=== PATIENT | female | born 1975 | race Caucasian/White ===

== ENCOUNTER → 2016-07-31 | Outpatient (REF) | payer OTHER | LOC: M LAB REF 16:53 | PROVIDERS: ATTEND Physician Assistant Medical | DX: Z13.9 Encounter for screening, unspecified (principal) ==

== ENCOUNTER 2016-08-09 16:04 | Inpatient (IN) | payer OTHER ==
[~2016-08-09] VITALS: Ht 165.1 cm; Wt 83.0 kg
[2016-08-09] MEDS ORDERED: NS 1,000 ML IV ONE (16:30)
[2016-08-09 16:33] LABS: BASO % 0.4 % (0.0-1.0); EOS # 0.1 K/mm3 (0.0-0.50); EOS % 1.5 % (0.0-3.0); LARGE UNSTAINED CELL # 0.2 K/mm3 (0.0-0.4); LARGE UNSTAINED CELL % 2.1 % (0.0-4.0); LYMPH # 2.2 K/mm3 (1.5-4.5); LYMPH % 26.1 % (24.0-44.0); MEAN CORPUSCULAR HGB CONC 34.7 g/dl (32.0-36.5); MEAN CORPUSCULAR VOLUME 86.5 fl (80.0-96.0); MONO # 0.3 K/mm3 (0.0-0.8); MONO % 3.8 % (0.0-5.0); NEUTROPHILS # 5.1 K/mm3 (1.8-7.7); NEUTROPHILS % 66.1 % (36.0-66.0); PLATELET COUNT, AUTOMATED 425 k/mm3 (150-450); RED CELL DISTRIBUTION WIDTH 13.8 % (11.5-14.5); WHITE BLOOD COUNT 7.7 K/mm3 (4.0-10.0)
[2016-08-09 16:47] LABS: METHADONE URINE NEGATIVE (NEGATIVE)
[2016-08-09 16:52] LABS: CONTROL LINE HCG INT CTR LINE PRESENT
--- NOTE | 2016-08-09 16:54 | REP ---
REASON: Drug overdose. PRIOR: 05/29/2015. FINDINGS: The technique utilized in obtaining the radiograph has magnified the cardiac silhouette and accentuated the interstitial markings. The superior mediastinal structures are midline. The cardiac silhouette is unremarkable in size, shape, and position. The diaphragmatic surfaces of the lungs are regular, and the costophrenic angles are clear. The pulmonary davis are clear. The imaged osseous structures are intact. IMPRESSION: There is no acute cardiopulmonary disease. Signed by Kaiden Meza DO 08/12/2016 12:58 P
[2016-08-09 17:01] LABS: ALBUMIN/GLOBULIN RATIO 1.08 (1.00-1.93); ALKALINE PHOSPHATASE 90 U/L (45-117); ALT/SGPT 25 U/L (12-78); ANION GAP 7 MEQ/L (8-16); AST/SGOT 16 U/L (15-37); BILIRUBIN,DIRECT < 0.1 MG/DL (0.0-0.2); BILIRUBIN,TOTAL 0.6 MG/DL (0.2-1.0); BLOOD UREA NITROGEN 8 MG/DL (7-18); CARBON DIOXIDE LEVEL 24 MEQ/L (21-32); CHLORIDE LEVEL 105 MEQ/L (98-107); CREATININE FOR GFR 0.82 MG/DL (0.55-1.02); GLOMERULAR FILTRATION RATE > 60.0 (>58); GLUCOSE, FASTING 95 MG/DL (70-105); POTASSIUM SERUM 4.7 MEQ/L (3.5-5.1); SODIUM LEVEL 136 MEQ/L (136-145); TOTAL PROTEIN 7.7 GM/DL (6.4-8.2)
[2016-08-09] MEDS ORDERED: PANT20TA PO (17:08)
[2016-08-09] MEDS ORDERED: SERT-138 PO (17:08)
[2016-08-09] MEDS ORDERED: BUPR150T3 PO (17:08)
[2016-08-09] MEDS ORDERED: LORA10TA2 PO (17:08)
[2016-08-09] MEDS ORDERED: PATIENT COMMENT (17:08)
[2016-08-09 17:17] LABS: MAGNESIUM LEVEL 2.7 MG/DL (1.8-2.4)
[2016-08-09] MEDS ORDERED: CLON0.5T PO (17:57)
[2016-08-09] MEDS ORDERED: D 50CAP PO (17:57)
[2016-08-09] MEDS ORDERED: TIZA2TA PO (17:57)
[2016-08-09] MEDS ORDERED: [UNRECOGNIZED DRUG - OTHER] PO (17:57)
[2016-08-09] MEDS ORDERED: [UNRECOGNIZED DRUG - CODE] PO (17:57)
[2016-08-09] MEDS ORDERED: MELA3CAP PO (17:57)
[2016-08-09] MEDS ORDERED: TRAM50TA2 PO (17:57)
[2016-08-09] MEDS ORDERED: VITA-130 PO (17:57)
--- NOTE | 2016-08-09 20:59 | HPEPDOC ---
Medical History and Physical Date of Admission Aug 09, 2016 at 19:44 History and Physical PRIMARY CARE PROVIDER: [Iain Boyer PA-C] ATTENDING: Brandon Pina M.D. CHIEF COMPLAINT: [Altered mental status] HISTORY OF PRESENT ILLNESS: [40-year-old female presents to the emergency department after EMS was called and she was admitted to intentional overdose. She informs me that she's had quite a bit of stress in her life recently, she's had quite a bit of neck pain, back pain, anxiety and felt overwhelmed earlier today and decided to take tablets of her clonazepam 5 tablets of her tramadol 3- 1/2 tablets of her tizanidine on top of taking her normal doses of her medications, which also include Zoloft and Wellbutrin. During the interview. She did appear teary-eyed and somewhat emotional. And she informs me that she's had suicidal ideation on and off for the last 2 months. She's try to get in to see a psychiatrist as well as a counselor and has been unable to keep those appointments. But does inform me that she feels that she is at risk to further trying to harm herself. Currently, she denies headache, lightheadedness, dizziness. Denies chest pain, shortness of breath, productive sputum, no nausea or vomiting. But has had a normal appetite. Hospitalist was called for admission. After the ER physician had contacted poison control and the patient will need to be admitted overnight on telemetry for further monitoring. As long as she looks good tomorrow morning labs are normal and no events on telemetry. She'll need to be evaluated by psychiatry for potential involuntary admission to inpatient mental health due to her suicidal ideation.] PAST MEDICAL HISTORY: 1. Anxiety and depression. 2. Chronic neck and back pain. 3. History of anemia 4. History of recurrent urinary tract infections PAST SURGICAL HISTORY: Multiple surgeries for fractures involving the left arm at age 6. Fractured left ankle in 1997 requiring repair. SOCIAL HISTORY: Occasional alcohol use. She denies tobacco use. No illicit drug use. No recent travel, no sick contacts. FAMILY HISTORY: Noncontributory ALLERGIES: Please see below. REVIEW OF SYSTEMS: CONSTITUTIONAL: No fever, chills, weight loss, nausea or vomiting . HEENT: No headache, lightheadedness, blurred or loss of vision. No difficulty with speech or swallow. CARDIOVASCULAR: No chest pain, palpitations, paroxysmal nocturnal dyspnea or lower extremity edema RESPIRATORY: No cough, productive sputum, wheeze or hemoptysis GENITOURINARY: No dysuria, frequency, or discharge MUSCULOSKELETAL: No bone, muscle or joint pain. GASTROINTESTINAL: No Nasuea, vomitting, change in appetite. Bowel movements are regular without hematochezia or melena. No bladder or bowel incontinence. SKIN: No complaint of lesions, abrasions or rashes NEUROLOGICAL: No blurred vision, headaches, parasthesias or paralysis PSYCHIATRIC: Positive for anxiety with chronic pain syndrome and recent suicidal ideation. She denies any audiovisual hallucinations ENDOCRINE: Denies history of diabetes or thyroid disorder. No history of endocrine abnormalities. HEMATOLOGIC/LYMPHATIC: No lumpbs, bumps or swelling of neck, axilla or groin. No night sweats or weight loss. HOME MEDICATIONS: Please see below. PHYSICAL EXAMINATION: GENERAL APPEARANCE: [No acute distress, alert, pleasant, yet tearful]. HEENT: [. Eyes PERRLA. Throat clear. Neck supple]. CARDIOVASCULAR: [Regular rate and rhythm]. LUNGS: [Clear to auscultation bilaterally]. ABDOMEN: [Soft, nontender, nondistended, positive bowel sounds, masses or rebound]. MUSCULOSKELETAL: [Range of motion limitations]. EXTREMITIES: [No edema, no calf tenderness]. NEUROLOGICAL: [Renal nerves II-12 are grossly intact. No deficits]. PSYCHIATRIC: [As indicated in the HPI. She does appear to be tearful and describes suicidal ideation.]. LABORATORY DATA: See below. IMAGING: [Chest x-ray: No acute disease. The lead EKG sinus rhythm, normal QTc interval, no acute findings.] ASSESSMENT: [ 1. Intentional overdose with her prescription medications. 2. Suicidal ideation. 3. Long-standing anxiety. 4. Chronic Pain syndrome with chronic neck pain and back pain]. . PLAN: She will be admitted to PCU on telemetry overnight. We'll continue to observe for any other complications. She does not appear to have any issues with illicit drug use or alcohol that would warrant any withdrawal symptoms. We'll place with a sitter. DVT prophylaxis subcutaneous Lovenox. Disposition: If she does well through the night. No issues in the morning. We' ll need to consult psychiatry for follow-up involuntary admission to inpatient mental health for her suicidal ideation and Intentional overdose. Vital Signs Vital Signs Date Time Temp Pulse Resp B/P (MAP) Pulse Ox O2 Delivery O2 Flow Rate FiO2 08/09/16 19:30 74 16 121/67 (85) 97 Room Air 08/09/16 16:15 98.8 Laboratory Data Labs 24H Laboratory Tests 2 08/09/16 16:18: White Blood Count 7.7, Red Blood Count 4.43, Hemoglobin 13.3, Hematocrit 38.3, Mean Corpuscular Volume 86.5, Mean Corpuscular Hemoglobin 30.0, Mean Corpuscular Hemoglobin Concent 34.7, Red Cell Distribution Width 13.8, Platelet Count 425, Neutrophils (%) (Auto) 66.1H, Lymphocytes (%) (Auto) 26.1, Monocytes (%) (Auto) 3.8, Eosinophils (%) (Auto) 1.5, Basophils (%) (Auto) 0.4, Neutrophils # (Auto) 5.1, Lymphocytes # (Auto) 2.2, Monocytes # (Auto) 0.3, Eosinophils # (Auto) 0.1, Basophils # (Auto) 0.0, Large Unclassified Cells % 2.1 , Large Unclassified Cells # 0.2 08/09/16 16:28: Urine Appearance CLEAR, Urine Color STRAW, Urine pH 7.0, Urine Specific [place] 1.004, Urine Protein NEGATIVE, Urine Glucose (UA) NEGATIVE, Urine Ketones NEGATIVE, Urine Urobilinogen 0.2, Urine Bilirubin NEGATIVE, Urine Leukocyte Esterase NEGATIVE, Urine Blood NEGATIVE, Urine Nitrite NEGATIVE, Urine WBC (Auto ) 0, Urine RBC (Auto) 2, Urine Hyaline Casts (Auto) 0, Urine Bacteria (Auto) NEGATIVE, Urine Squamous Epithelial Cells 0, Urine Sperm (Auto) , Urine Amphetamines Screen NEGATIVE, Urine Benzodiazepines Screen NEGATIVE, Urine Opiates Screen NEGATIVE, Urine Methadone Screen NEGATIVE, Urine Barbiturates Screen NEGATIVE, Urine Phencyclidine Screen NEGATIVE, Urine Cocaine Metabolite Screen NEGATIVE, Urine Cannabinoids Screen NEGATIVE 08/09/16 16:45: Bedside Glucose (Misc Panel) 96, Anion Gap 7L, Glomerular Filtration Rate > 60.0 , Calcium Level 9.0, Magnesium Level 2.7H, Aspartate Amino Transf (AST/SGOT) 16 , Alanine Aminotransferase (ALT/SGPT) 25, Alkaline Phosphatase 90, Total Bilirubin 0.6, Direct Bilirubin < 0.1, Total Creatine Kinase 113, Total Protein 7.7, Albumin 4.0, Albumin/Globulin Ratio 1.08, Thyroid Stimulating Hormone (TSH ) 2.390, Human Chorionic Gonadotropin, Qual NEGATIVE, Salicylates Level < 1.7L, Acetaminophen Level < 2.0L, Ethyl Alcohol Level < 0.003 08/09/16 17:21: Lactic Acid Level 0.4 CBC/BMP Laboratory Tests 08/09/16 16:18 Red Blood Count 4.43, Mean Corpuscular Volume 86.5, Mean Corpuscular Hemoglobin 30.0, Mean Corpuscular Hemoglobin Concent 34.7, Red Cell Distribution Width 13.8 , Neutrophils (%) (Auto) 66.1 H, Lymphocytes (%) (Auto) 26.1, Monocytes (%) ( Auto) 3.8, Eosinophils (%) (Auto) 1.5, Basophils (%) (Auto) 0.4, Neutrophils # ( Auto) 5.1, Lymphocytes # (Auto) 2.2, Monocytes # (Auto) 0.3, Eosinophils # (Auto ) 0.1, Basophils # (Auto) 0.0 08/09/16 16:45 Home Medications Scheduled (Weight Loss Daily Multi) 1 Tab Tab, 3 TAB PO DAILY (Green Tea Slim) 1 Tab Tab, 1 TAB PO BID Ascorbic Acid (Vitamin C) 500 Mg Tab, 500 MG PO BID Bupropion Hcl (Bupropion HCl Xl) 150 Mg Tab, 150 MG PO DAILY Cholecalciferol (Vitamin D3) 5,000 Unit Cap, 5,000 UNIT PO DAILY Pantoprazole Sodium (Pantoprazole Sodium) 20 Mg Tab, 20 MG PO DAILY Sertraline HCl (Sertraline HCl) 100 Mg Tab, 100 MG PO DAILY Scheduled PRN Clonazepam (Clonazepam) 0.5 Mg Tab, 0.5 MG PO DAILY PRN for ANXIETY Loratadine (Loratadine) 10 Mg Tab, 10 MG PO DAILY PRN for ALLERGIES Melatonin (Melatonin) 3 Mg Cap, 3 MG PO QHS PRN for SLEEP Tizanidine HCl (Tizanidine HCl) 2 Mg Tab, 2 MG PO Q8H PRN for SPASMS Tramadol HCl (Tramadol HCl) 50 Mg Tab, 50 MG PO Q12H PRN for PAIN Miscellaneous Medications [Patient Comment] PT UNRESPONSIVE, OBTAINED LIST FROM PHARMACY Allergies Coded Allergies: Latex (Verified Allergy, Intermediate, RASH, 08/09/16) ARTURO KEANE DO Aug 09, 2016 20:59
[2016-08-09 21:45] VITALS: BP 123/76
[2016-08-09] MEDS: SENOKOT S TAB PO SCH (22:17)
[2016-08-09] MEDS: ACETAMINOPHEN TAB 650MG DOSE (2X325MG) PO PRN (22:18)
[2016-08-10 04:45] VITALS: BP 116/65
[2016-08-10 05:12] LABS: MEAN CORPUSCULAR HEMOGLOBIN 29.4 pg (27.0-33.0); MEAN CORPUSCULAR HGB CONC 33.9 g/dl (32.0-36.5); MEAN CORPUSCULAR VOLUME 86.7 fl (80.0-96.0); WHITE BLOOD COUNT 7.8 K/mm3 (4.0-10.0)
[2016-08-10 05:39] LABS: ANION GAP 6 MEQ/L (8-16); BLOOD UREA NITROGEN 8 MG/DL (7-18); CALCIUM LEVEL 8.6 MG/DL (8.5-10.1); CARBON DIOXIDE LEVEL 26 MEQ/L (21-32); CHLORIDE LEVEL 109 MEQ/L (98-107); CREATININE FOR GFR 0.68 MG/DL (0.55-1.02); GLOMERULAR FILTRATION RATE > 60.0 (>58); GLUCOSE, FASTING 77 MG/DL (70-105); POTASSIUM SERUM 3.6 MEQ/L (3.5-5.1); SODIUM LEVEL 141 MEQ/L (136-145)
--- NOTE | 2016-08-10 06:03 | ECGEPIP ---
Stationary ECG Study [facility] - ED Test Date: 2016-08-09 Pat Name: ROLANDO MCINTYRE Department: Room: - Gender: F Keno Writer: joanie : 1975 Requested By: Talita Szymanski Order Number: [id number] Reading MD: Michael Goddard Measurements Intervals [place] Rate: 82 P: 10 DE: 174 QRS: 0 QRSD: 86 T: 12 QT: 366 QTc: 428 Interpretive Statements SINUS RHYTHM LOW QRS VOLTAGE IN PRECORDIAL LEADS PROBABLE INFERIOR MYOCARDIAL INFARCTION, PROBABLY OLD PRWP NSTTW ABNORMALITIES SIMILAR TO 09/06/13 Electronically Signed On 08-10-2016 6:03:30 EDT by Michael Goddard
[2016-08-10] MEDS: SENOKOT S TAB PO SCH (07:57)
[2016-08-10 08:00] VITALS: BP 93/50
[2016-08-10] MEDS ORDERED: ENOXAPARIN 40 MG/0.4 ML SYRINGE (J1650) SC SCH (09:00)
--- NOTE | 2016-08-10 10:49 | DSES ---
DATE OF ADMISSION: 08/09/2016 SPECIALISTS INVOLVED IN CARE: Dr. Fortune from psychiatry. COMPLICATIONS DURING STAY: None. PROCEDURES PERFORMED DURING STAY: None. This is a patient of Andres Boyer. DISCHARGE DIAGNOSES: 1. Intentional overdose. 2. Major depressive disorder. 3. Anxiety. 4. Chronic neck and back pain. 5. History of anemia. 6. History of recurrent urinary tract infection (UTI). 7. Suicidal ideation. SUMMARY OF PRESENTATION: This is a 40-year-old who was brought to the emergency department after EMS was contacted and she admitted to intentional overdose. This was related to life stress. Poison Control was contacted. It was suggested that based on the Wellbutrin that she be monitored on telemetry overnight and she was. There was no significant arrhythmia. She is feeling well this morning and has no complaints of pain, chest pain or shortness of breath. I have discussed with her that she will be transferred to the mental health unit which she seems to understand. Dr. Fortune has been consulted. Temperature is 99.3, pulse 75, respiratory rate 18, blood pressure 93/50, and 97 % on room air. She is awake, appropriately interactive, and pleasantly conversant. Breathing is symmetrical and rested. Heart is in a regular rate and rhythm. Abdomen soft, doughy, nontender. White cell count 7.8, hemoglobin 11.9 and platelets of 372. BUN 8, creatinine 0.68. DISCHARGE INSTRUCTIONS: Followup with Andres Boyer upon discharge from inpatient mental health unit ([facility]). Diet and activity as tolerated. Medications will include Claritin 10 mg by mouth daily as needed, Protonix 20 mg by mouth daily and tizanidine 2 mg every 8 hours as needed for spasms. MTDD
--- NOTE | 2016-08-10 11:24 | MHIPNPDOC ---
[facility] Progress Note Progress Note DATE OF SERVICE: 08/10/16 Evaluated 40 year old female with history of major Depressive Disorder with suicide attempt by intentional drug overdose, anxiety and multiple family/ social problems that triggered this crisis. Patient is still depressed and has suicidal ideation. Reports that if she would not be at the hospital, she would have tried again to kill herself. She is cooperative, pleasant and agrees going to the [facility]. Patient is stable to be transferred to the [facility]. DIAGNOSES: 1. Major Depressive Disorder, recurrent, with suicidal ideation 2. Generalized anxiety Disorder ASSESSMENT:pt. is still very vulnerable, has SI and has no family or social support. Needs to go to the [facility]. MANAGEMENT PLAN: Transfer her to the [facility]. TIME SPENT: 45 minutes. Vital Signs Vital Signs Date Time Temp Pulse Resp B/P (MAP) Pulse Ox O2 Delivery O2 Flow Rate FiO2 08/10/16 08:00 99.3 75 18 93/50 (64) 97 Room Air Laboratory Data 24H Labs Laboratory Tests 2 08/09/16 16:18: White Blood Count 7.7, Red Blood Count 4.43, Hemoglobin 13.3, Hematocrit 38.3, Mean Corpuscular Volume 86.5, Mean Corpuscular Hemoglobin 30.0, Mean Corpuscular Hemoglobin Concent 34.7, Red Cell Distribution Width 13.8, Platelet Count 425, Neutrophils (%) (Auto) 66.1H, Lymphocytes (%) (Auto) 26.1, Monocytes (%) (Auto) 3.8, Eosinophils (%) (Auto) 1.5, Basophils (%) (Auto) 0.4, Neutrophils # (Auto) 5.1, Lymphocytes # (Auto) 2.2, Monocytes # (Auto) 0.3, Eosinophils # (Auto) 0.1, Basophils # (Auto) 0.0, Large Unclassified Cells % 2.1 , Large Unclassified Cells # 0.2 08/09/16 16:28: Urine Appearance CLEAR, Urine Color STRAW, Urine pH 7.0, Urine Specific [place] 1.004, Urine Protein NEGATIVE, Urine Glucose (UA) NEGATIVE, Urine Ketones NEGATIVE, Urine Urobilinogen 0.2, Urine Bilirubin NEGATIVE, Urine Leukocyte Esterase NEGATIVE, Urine Blood NEGATIVE, Urine Nitrite NEGATIVE, Urine WBC (Auto ) 0, Urine RBC (Auto) 2, Urine Hyaline Casts (Auto) 0, Urine Bacteria (Auto) NEGATIVE, Urine Squamous Epithelial Cells 0, Urine Sperm (Auto) , Urine Amphetamines Screen NEGATIVE, Urine Benzodiazepines Screen NEGATIVE, Urine Opiates Screen NEGATIVE, Urine Methadone Screen NEGATIVE, Urine Barbiturates Screen NEGATIVE, Urine Phencyclidine Screen NEGATIVE, Urine Cocaine Metabolite Screen NEGATIVE, Urine Cannabinoids Screen NEGATIVE 08/09/16 16:45: Bedside Glucose (Misc Panel) 96, Anion Gap 7L, Glomerular Filtration Rate > 60.0 , Calcium Level 9.0, Magnesium Level 2.7H, Aspartate Amino Transf (AST/SGOT) 16 , Alanine Aminotransferase (ALT/SGPT) 25, Alkaline Phosphatase 90, Total Bilirubin 0.6, Direct Bilirubin < 0.1, Total Creatine Kinase 113, Total Protein 7.7, Albumin 4.0, Albumin/Globulin Ratio 1.08, Thyroid Stimulating Hormone (TSH ) 2.390, Human Chorionic Gonadotropin, Qual NEGATIVE, Salicylates Level < 1.7L, Acetaminophen Level < 2.0L, Ethyl Alcohol Level < 0.003 08/09/16 17:21: Lactic Acid Level 0.4 08/10/16 04:30: Anion Gap 6L, Glomerular Filtration Rate > 60.0, Blood Urea Nitrogen 8, Creatinine 0.68, Sodium Level 141, Potassium Level 3.6#, Chloride Level 109H, Carbon Dioxide Level 26, Calcium Level 8.6 CBC/BMP Laboratory Tests 08/09/16 16:18 Red Blood Count 4.43, Mean Corpuscular Volume 86.5, Mean Corpuscular Hemoglobin 30.0, Mean Corpuscular Hemoglobin Concent 34.7, Red Cell Distribution Width 13.8 , Neutrophils (%) (Auto) 66.1 H, Lymphocytes (%) (Auto) 26.1, Monocytes (%) ( Auto) 3.8, Eosinophils (%) (Auto) 1.5, Basophils (%) (Auto) 0.4, Neutrophils # ( Auto) 5.1, Lymphocytes # (Auto) 2.2, Monocytes # (Auto) 0.3, Eosinophils # (Auto ) 0.1, Basophils # (Auto) 0.0 08/09/16 16:45 08/10/16 04:30 Red Blood Count 4.05, Mean Corpuscular Volume 86.7, Mean Corpuscular Hemoglobin 29.4, Mean Corpuscular Hemoglobin Concent 33.9, Red Cell Distribution Width 14.0 , Calcium Level 8.6 Current Medications Current Medications Acetaminophen (Tylenol Tab) 650 mg Q4HP PRN PO MILD PAIN OR FEVER Last administered on 08/09/16 22:18; Start 08/09/16 at 19:30; Stop 09/08/16 at 19:29 Enoxaparin Sodium (Lovenox) 40 mg DAILY SC Last administered on 08/10/16 07:57 ; Start 08/10/16 at 09:00; Stop 08/15/16 at 08:59 Home Med (Med Rec Complete!) ASDIRECTED XX ; Start 08/09/16 at 17:15; Stop at 17:15; Status DC Senna/Docusate Sodium (Senokot S) 1 tab BID PO Last administered on 08/10/16 07:57; Start 08/09/16 at 21:00; Stop 09/08/16 at 20:59 Allergies Coded Allergies: Latex (Verified Allergy, Intermediate, RASH, 08/09/16) EDUMNDO GRANDE MD Aug 10, 2016 11:24
[2016-08-10] MEDS: ACETAMINOPHEN TAB 650MG DOSE (2X325MG) PO PRN (11:50)
[2016-08-10 12:00] VITALS: BP 102/53
[2016-08-10 16:00] VITALS: BP 116/71
== END 2016-08-10 16:52 | DRG 812 ==
LOC: M ED 19:43 → M ED INP 19:44 → M PCU 21:45
PROVIDERS: ADMIT Hospitalist; ATTEND Internal Medicine
DX: T42.4X2A Poisoning by benzodiazepines, intentional self-harm, initial encounter (principal); F32.9 Major depressive disorder, single episode, unspecified; T40.4X2A Poisoning by other synthetic narcotics, intentional self-harm, initial encounter; T42.8X2A Poisoning by antiparkinsonism drugs and other central muscle-tone depressants, intentional self-harm, initial encounter; F41.9 Anxiety disorder, unspecified; M54.2 Cervicalgia; D64.9 Anemia, unspecified; G89.4 Chronic pain syndrome; Z79.899 Other long term (current) drug therapy; Z91.040 Latex allergy status

== ENCOUNTER 2016-08-10 17:00 | Inpatient (IN) | payer OTHER ==
[~2016-08-10] VITALS: Ht 165.1 cm; Wt 83.5 kg
[~2016-08-10 17:00] MED LIST: BUPR150T3 PO; CLON0.5T PO; D 50CAP PO; LORA10TA2 PO; MELA3CAP PO; PANT20TA PO; PATIENT COMMENT; SERT-138 PO; TIZA2TA PO; TRAM50TA2 PO; VITA-130 PO; [UNRECOGNIZED DRUG - CODE] PO; [UNRECOGNIZED DRUG - OTHER] PO
[2016-08-10] MEDS ORDERED: LORazepam 1 MG TAB PO PRN (20:30)
[2016-08-10] MEDS ORDERED: MAALOX 30 ML SUSP *UDC PO PRN (20:30)
[2016-08-10] MEDS ORDERED: tiZANidine 4 MG TAB PO PRN (20:30)
[2016-08-10] MEDS ORDERED: MOM 30ML SUSPENSION UDC PO PRN (20:30)
[2016-08-10] MEDS ORDERED: traZODone 50 MG TAB PO PRN (20:30)
[2016-08-10] MEDS ORDERED: SERTRALINE HCL 50 MG TAB PO SCH (21:00)
[2016-08-10] MEDS: LORATADINE 10 MG TAB PO PRN (22:15)
[2016-08-11 06:00] VITALS: BP 117/53
[2016-08-11] MEDS: PANTOPRAZOLE 20 MG TAB PO SCH (09:22)
[2016-08-11 18:00] VITALS: BP 105/58
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
[2016-08-11] MEDS: SERTRALINE 100 MG TAB PO SCH (21:16)
[2016-08-11] MEDS: LORATADINE 10 MG TAB PO PRN (21:16)
[2016-08-12 06:23] VITALS: BP 119/61
[2016-08-12] MEDS: PANTOPRAZOLE 20 MG TAB PO SCH (09:21)
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
[2016-08-12 18:30] VITALS: BP 128/76
[2016-08-12] MEDS: SERTRALINE 100 MG TAB PO SCH (20:58)
[2016-08-12] MEDS ORDERED: ARIPiprazole 2 MG TAB PO SCH (21:00)
[2016-08-13 06:33] VITALS: BP 138/83
[2016-08-13] MEDS: PANTOPRAZOLE 20 MG TAB PO SCH (08:42)
[2016-08-13] MEDS: ARIPiprazole 2 MG TAB PO SCH (09:00)
--- NOTE | 2016-08-13 09:17 | MHIPNPDOC ---
[facility] Progress Note Progress Note DATE OF SERVICE: 08/13/16 HISTORY: day 4, pt admitted following overdose on prescription medications. VITAL SIGNS: See below. NEW TEST RESULTS: na CURRENT MEDICATIONS: See below. MENTAL STATUS EXAMINATION: Patient is a 40-year old female, who is wearing hospital garb, glasses, makes good eye contact with good hygiene. Speech: Is states needs well, clear and spontaneous. Language skills are intact Thought processes including: goal directed Thought content: appropriate Abstract reasoning, and computation: fair. Description of associations: good. Description of abnormal or psychotic thoughts: no psychotic symptoms observed, pt is having infrequent thoughts of suicide. no thoughts of homicide. Judgment: limited Insight:good, . Orientation: oriented to time, place, person and situation. Recent and remote memory: intact. Attention span and concentration: good. Fund of knowledge: average Mood: anxious. Affect: congruent. DIAGNOSES: MDD, severe, recurrent, without psychotic features ASSESSMENT:patient is using this time on the unit to attend therapeutic programming to help improve her coping skills and learn how to effectively deal with life stressors. Pt is very upset that beetles were found in her room from a plant she brought in and as a result she is unable to have her personal clothing which is being quarantined. Staff will check with nurse manager study about the status of the bugs and if the issue is resolved return clothing to pt. In the mean time pt is having a difficult time adjusting to addition of Abilify to medication regime. She was awake all night last night and trazodone was not effective in helping her sleep. Will change the Abilify to a.m. dosing as it likely caused insomnia for her. this was explained yesterday in the discussion of her meds. It seems she may not have recalled this. pt reports a visit by her aunt and uncle from [place]. they were very involved in her life when she was young as her mother had her at age 16. they have a special goel and Madelaine does feel they are there to support her and she can reach out to them if necessary in the future. She also has a nice relationship with the ex-boyfriend's parents. the father lives in her trailer park and the mother is nearby. he was the one who came over to her house but could not get in since Madelaine had it locked up well. he expressed his care for her along with the ex's mother and she knows they are supportive people she can count on as well. Madelaine states her depression is improving and she identifies that her participation in our programming has helped her a great deal to build new skills. MANAGEMENT PLAN: Pt encouraged to continue recovery efforts from her overdose and learn as much as she can while here to help her live a more satisfactory life once she leaves here. We discussed Friday or next Friday as possible discharge dates. Pt denies need for family meeting prior to discharge. She has agreed to case mgt services and we will see if her CM can meet her on the unit before discharge. Pt attended team meeting today and is aware of discharge plans and change in medication time. Efforts earnestly made to resolve clothing concerns. TIME SPENT: 25 minutes. Vital Signs Vital Signs Date Time Temp Pulse Resp B/P (MAP) Pulse Ox O2 Delivery O2 Flow Rate FiO2 08/13/16 06:33 98.1 100 18 138/83 (101) 08/12/16 06:23 Room Air Current Medications Current Medications Acetaminophen (Tylenol Tab) 650 mg Q6HP PRN PO HEADACHE or DISCOMFORT; Start at 20:30; Stop 09/09/16 at 20:29 Al Hydrox/Mg Hydrox/Simethicone (Mylanta) 30 ml Q4HP PRN PO HEARTBURN/ INDIGESTION; Start 08/10/16 at 20:30; Stop 09/09/16 at 20:29 Aripiprazole (AbiLIFY) 2 mg QHS PO Last administered on 08/12/16 20:58; Start 08/12/16 at 21:00; Stop 09/11/16 at 20:59 Loratadine (Claritin) 10 mg DAILYPRN PRN PO allergies Last administered on 08/11 21:16; Start 08/10/16 at 20:30; Stop 09/09/16 at 20:29 Lorazepam (Ativan) 1 mg Q8HP PRN PO ANXIETY Last administered on 08/11/16 22: 04; Start 08/10/16 at 20:30; Stop 08/17/16 at 20:29 Magnesium Hydroxide (Milk Of Magnesia) 30 ml DAILYPRN PRN PO CONSTIPATION; Start 08/10/16 at 20:30; Stop 09/09/16 at 20:29 Pantoprazole Sodium (Protonix) 20 mg DAILY PO Last administered on 08/13/16 08 :42; Start 08/11/16 at 09:00; Stop 09/10/16 at 08:59 Sertraline HCl (Zoloft) 50 mg QHS PO Last administered on 08/10/16 22:15; Start 08/10/16 at 21:00; Stop 08/11/16 at 13:36; Status DC Sertraline HCl (Zoloft) 100 mg QHS PO Last administered on 08/12/16 20:58; Start 08/11/16 at 21:00; Stop 09/10/16 at 20:59 Tizanidine HCl (Zanaflex) 2 mg Q8HP PRN PO SPASMS; Start 08/10/16 at 20:30; Stop 09/09/16 at 20:29 Trazodone HCl (Desyrel) 50 mg QHSP PRN PO INSOMNIA Last administered on 00:33; Start 08/10/16 at 20:30; Stop 09/09/16 at 20:29 Allergies Coded Allergies: Latex (Verified Allergy, Intermediate, RASH, 08/09/16) Letty Kee Aug 13, 2016 09:17
[2016-08-13 18:19] VITALS: BP 134/73
[2016-08-13] MEDS: SERTRALINE 100 MG TAB PO SCH (20:16)
[2016-08-13] MEDS: LORATADINE 10 MG TAB PO PRN (20:16)
[2016-08-13] MEDS: ACETAMINOPHEN TAB 650MG DOSE (2X325MG) PO PRN (20:17)
[2016-08-14 06:34] VITALS: BP 116/57
[2016-08-14] MEDS: ARIPiprazole 2 MG TAB PO SCH (08:20)
[2016-08-14] MEDS: PANTOPRAZOLE 20 MG TAB PO SCH (08:20)
--- NOTE | 2016-08-14 10:45 | MHIPNPDOC ---
[facility] Progress Note Progress Note DATE OF SERVICE: 08/14/16 HISTORY: day 5 of admission following intentional overdose on medications. VITAL SIGNS: See below. NEW TEST RESULTS: na CURRENT MEDICATIONS: See below. MENTAL STATUS EXAMINATION: Patient is a 40-year old female, who is DRESSED in hospital clothing, lying comfortably in bed, writing, wearing glasses and cooperative. Speech: Is coherent and clear Language skills are intact. Thought processes including: free of delusions and compulsions, goal directed and logical Thought content: appropriate. Abstract reasoning, and computation:good. Description of associations: good.. Description of abnormal or psychotic thoughts: pt denies current thoughts of harming self. pt denies psychotic symptoms and none illicited. Judgment: fair Insight: good. Orientation: oriented x 4 Recent and remote memory: intact Attention span and concentration: good Fund of knowledge: full. Mood: euthymic. Affect: calm. DIAGNOSES: MDD , severe, recurrent without psychotic features. ASSESSMENT:pt is utilizing skills she is acquiring on the unit to help improve her state of depression. She is denying thoughts of suicide and has a new will to live. She is discussing future goals and aspirations. She shows optimism and a willingness to remain engaged in mental health services. Pt understands the importance of remaining on her medication and the need for regular follow up with outpatient providers. pt had a good night of sleep after Abilify changed to a.m. dosing from hs dosing. She did not require trazodone last night. We discussed the use of melatonin 5 mg prn as an outpatient if sleep were a problem. She states she usually sleeps very well. Pt anticipates returning to her job and her home as soon as we determine she can be discharged. Based on her progress and response to medication, we anticipate discharging her tomorrow. MANAGEMENT PLAN: Pt will have follow up care for med mgt and for individual therapy. Perhaps at some time her family would be willing to engage in family therapy for the benefit of all of them. TIME SPENT: 20 minutes. Vital Signs Vital Signs Date Time Temp Pulse Resp B/P (MAP) Pulse Ox O2 Delivery O2 Flow Rate FiO2 08/14/16 06:34 97.5 77 16 116/57 (76) 08/12/16 06:23 Room Air Current Medications Current Medications Acetaminophen (Tylenol Tab) 650 mg Q6HP PRN PO HEADACHE or DISCOMFORT Last administered on 08/13/16 20:17; Start 08/10/16 at 20:30; Stop 09/09/16 at 20:29 Al Hydrox/Mg Hydrox/Simethicone (Mylanta) 30 ml Q4HP PRN PO HEARTBURN/ INDIGESTION; Start 08/10/16 at 20:30; Stop 09/09/16 at 20:29 Aripiprazole (AbiLIFY) 2 mg QAM PO Last administered on 08/14/16 08:20; Start 08/13/16 at 09:00; Stop 09/11/16 at 08:59 Aripiprazole (AbiLIFY) 2 mg QHS PO Last administered on 08/12/16 20:58; Start 08/12/16 at 21:00; Stop 08/13/16 at 09:24; Status DC Loratadine (Claritin) 10 mg DAILYPRN PRN PO allergies Last administered on 08/13 20:16; Start 08/10/16 at 20:30; Stop 09/09/16 at 20:29 Lorazepam (Ativan) 1 mg Q8HP PRN PO ANXIETY Last administered on 08/11/16 22: 04; Start 08/10/16 at 20:30; Stop 08/17/16 at 20:29 Magnesium Hydroxide (Milk Of Magnesia) 30 ml DAILYPRN PRN PO CONSTIPATION; Start 08/10/16 at 20:30; Stop 09/09/16 at 20:29 Pantoprazole Sodium (Protonix) 20 mg DAILY PO Last administered on 08/14/16 08 :20; Start 08/11/16 at 09:00; Stop 09/10/16 at 08:59 Sertraline HCl (Zoloft) 50 mg QHS PO Last administered on 08/10/16 22:15; Start 08/10/16 at 21:00; Stop 08/11/16 at 13:36; Status DC Sertraline HCl (Zoloft) 100 mg QHS PO Last administered on 08/13/16 20:16; Start 08/11/16 at 21:00; Stop 09/10/16 at 20:59 Tizanidine HCl (Zanaflex) 2 mg Q8HP PRN PO SPASMS; Start 08/10/16 at 20:30; Stop 09/09/16 at 20:29 Trazodone HCl (Desyrel) 50 mg QHSP PRN PO INSOMNIA Last administered on t 00:33; Start 08/10/16 at 20:30; Stop 09/09/16 at 20:29 Allergies Coded Allergies: Latex (Verified Allergy, Intermediate, RASH, 08/09/16) Letty Kee Aug 14, 2016 10:45
[2016-08-14] MEDS: ACETAMINOPHEN TAB 650MG DOSE (2X325MG) PO PRN (11:51)
[2016-08-14 18:13] VITALS: BP 134/76
[2016-08-14] MEDS: SERTRALINE 100 MG TAB PO SCH (21:01)
[2016-08-14] MEDS: LORATADINE 10 MG TAB PO PRN (21:01)
[2016-08-15 06:47] VITALS: BP 123/68
[2016-08-15] MEDS: ARIPiprazole 2 MG TAB PO SCH (08:25)
[2016-08-15] MEDS: PANTOPRAZOLE 20 MG TAB PO SCH (08:25)
[2016-08-15] MEDS ORDERED: SERT-138 PO (09:11)
[2016-08-15] MEDS ORDERED: ARIP2TAB PO (09:11)
--- NOTE | 2016-08-15 09:26 | MHDSPDOC ---
[facility] Discharge Summary Discharge Summary DATE OF ADMISSION: Aug 10, 2016 at 17:00 DATE OF DISCHARGE: August 15, 2016 DISCHARGE DIAGNOSES: 1. MDD, severe, recurrent , without psychotic features. REASON FOR ADMISSION:pt was hopeless and took an overdose of tizanidine and clonazepam. interpersonal family stressors were the trigger. she had been trying to get an appt for counseling but the waiting list every where she tried was long and this happened before she was seen. CONSULTANTS INVOLVED: na TREATMENT AND PROGRESS ON THE UNIT : following stabilization on the medical floor, pt was transferred to [facility] for safety and education as well as medication evaluation. It was decided that her zoloft and clonazepam where not helping her sufficiently and augmentation with Abilify should be implemented. Pt had previously tried augmentation with Wellbutrin but was unsuccessful in reducing depression with that medication. Pt took an immediate interest in therapeutic programming and was a daily participant in group therapy and activities. She interacted appropriately with staff and peers. She was able to abide by unit protocols and rules. She was visited by family members and friends. HOSPITAL COURSE: Pt had insomnia when Abilify first started at hs. Once med changed to a.m. dosing she slept through the night. No side effects reported or observed with the onset of Abilify. Pt accepted education about the medication and the need for glucose and cholesterol monitoring. Pt is aware that some weight gain may occur and to be mindful to follow a healthy diet and engage in regular exercise. While here we were able to get her an appt for therapy so she can learn to rethink her family relationships and how she reacts when disappointed. She will also see a psychiatrist for med mgt. Pt declined offer for family meeting to prepare for discharge. She did not feel as though her mother or her children could be supportive of her. Pt worked on goals and future plans while on the unit. She shared with others and used journaling and reading as methods to deal with her anxiety. DISCHARGE ASSESSMENT: Pt reports feeling "100% better now" then when she was admitted. To her credit she worked hard at recovering and improving her frame of reference. 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 She feels safe in her living environment and can identify people for support she can talk to when upset. She denies any thoughts or inclinations to harm herself or others. She is prepared to take her medication as prescribed and to keep her appts as an outpatient. MENTAL STATUS EXAMINATION ON DISCHARGE: Patient is a 40-year old female, who is clean, wearing hospital attire, reading in bed. Speech is spontaneous and coherent Language skills are good. Thought processes including: goal directed Thought content: appropriate. Abstract reasoning, and computation: good. Description of associations: good. Description of abnormal or psychotic thoughts: pt does not exhibit any psychotic symptoms. pt denies all thoughts or intent of suicide or homicide. Judgment: good. Insight: good. Orientation to person, place, situation and time. Recent and remote memory: intact Attention span and concentration: good Fund of knowledge: full. Mood: euthymic. Affect: congruent. MEDICATIONS ON DISCHARGE: sertraline 100mg for depression/anxiety -abilify 2 mg for depression PLAN/FOLLOWUP ARRANGEMENTS: pt will begin outpatient treatment at [facility]. No acute medical problems during her stay on the unit. She has primary care at [facility]. The amount of time spent in the coordination of care for this patient was approximately 30 minutes. Vital Signs/I&Os Vital Signs Date Time Temp Pulse Resp B/P (MAP) Pulse Ox O2 Delivery O2 Flow Rate FiO2 08/15/16 06:47 98.2 70 16 123/68 (86) 08/12/16 06:23 Room Air Medications Scheduled Aripiprazole (Aripiprazole) 2 Mg Tab, 2 MG PO QAM for DEPRESSION for 7 Days, #7 Pantoprazole Sodium (Pantoprazole Sodium) 20 Mg Tab, 20 MG PO DAILY, (Reported) Sertraline HCl (Sertraline HCl) 100 Mg Tab, 100 MG PO QHS for MOOD for 7 Days, # 7 Scheduled PRN Loratadine (Loratadine) 10 Mg Tab, 10 MG PO DAILY PRN for ALLERGIES, (Reported) Tizanidine HCl (Tizanidine HCl) 2 Mg Tab, 2 MG PO Q8H PRN for SPASMS, (Reported) Allergies Coded Allergies: Latex (Verified Allergy, Intermediate, RASH, 08/09/16) Letty Kee Aug 15, 2016 09:26
== END 2016-08-15 10:25 | disposition home or self-care (01) | DRG 751 ==
LOC: M PSY 17:00
PROVIDERS: ADMIT Psychiatry & Neurology Psychiatry; ATTEND Psychiatry & Neurology Psychiatry
DX: F33.2 Major depressive disorder, recurrent severe without psychotic features (principal); Z91.040 Latex allergy status; Z79.899 Other long term (current) drug therapy; Z62.810 Personal history of physical and sexual abuse in childhood; Z91.410 Personal history of adult physical and sexual abuse

== ENCOUNTER → 2016-09-02 | Outpatient (CLI) | payer OTHER, MEDICAID ==
[~2016-09-02] MED LIST changes: +ARIP2TAB PO; +HYDR-3363 PO; +MACR100C43 PO; -MELA3CAP PO; +MELA3CAP2 PO; +PYRI1TAB5 PO; +SERT50TA PO; -VITA-130 PO; +VITA500T PO; +ZOLO100T PO
[2016-09-03 09:05] LABS: HBsAg Prenatal NEGATIVE (NEGATIVE)
== END ==
LOC: M SMT 10:10
PROVIDERS: ATTEND Advanced Practice Midwife
DX: Z11.3 Encounter for screening for infections with a predominantly sexual mode of transmission (principal)

== ENCOUNTER → 2016-09-06 | Outpatient (CLI) | payer OTHER ==
--- NOTE | 2016-09-06 12:26 | REP ---
PELVIC ULTRASOUND: Real-time sonographic evaluation of the pelvis performed utilizing transabdominal and endovaginal technique. Bladder measures 6.7 x 3.1 x 7.0 cm. Uterus measures 8.7 x 4.3 x 5.3 cm. Endometrial thickness is 10 mm. Trace endometrial fluid is seen. Nabothian cyst is seen in the region of the cervix. Ovaries are normal in size and echotexture, right ovary measuring 2.3 x 1.7 x 2.1 cm and left ovary 2.6 x 2.2 x 2.5 cm. There is a dominant follicle in the left ovary 1.2 x 1.3 x 1.5 cm. There is blood flow seen in each ovary with duplex Doppler evaluation, with no torsion, RI right ovary 0.59 and left ovary 0.55. There is no other evidence of adnexal mass or free fluid. IMPRESSION: Essentially negative pelvic ultrasound. There is trace endometrial fluid. There is a nabothian cyst in the region of the cervix. There is no adnexal mass or free fluid. Dominant follicle left ovary 1.5 cm in maximum diameter. Signed by Leonard Aguilar MD 09/06/2016 08:18 P
--- NOTE | 2016-09-06 12:31 | REP ---
DIGITAL DIAGNOSTIC BILATERAL MAMMOGRAPHY WITH CAD AND FOCUSED SONOGRAPHY: HISTORY: Palpable mass in the right breast at the site of a previous excisional biopsy. Comparison imaging is from December 29, 2008. FINDINGS: A skin marker is affixed to the skin at the site of the palpable lump in the right breast and routine views of the right breast are augmented by diagnostic images. Routine screening views of the left breast are obtained. Skin marker projects at the inferior and medial quadrant of the right breast. Normal stromal elements are seen here. Scattered fibroglandular elements are seen bilaterally in a pattern which is unchanged from prior study and which remains symmetric. No dominant density, architectural distortion, mass or microcalcification is seen mammographically. SONOGRAPHIC FINDINGS: Focused right breast sonography is performed from 2-o'clock position to 4-o'clock position across the area of palpable abnormality at 3-o'clock position. Heterogeneous fibroglandular background echotexture is seen. No cyst or mass is observed by ultrasound. IMPRESSION: BIRADS category 1 negative bilateral breast imaging. This negative report should not dissuade one from biopsy of a palpable lump depending on its characteristics. Clinical follow-up is advised. BI-RADS/ACR category 1 mammogram. Negative. Routine annual screening mammography (for women over age 40). This mammogram was interpreted with the aid of an FDA-approved computer-aided detection system. The patient states she/he had a clinical breast exam in September 05, 2016 The patient letter being requested is M1. Signed by López Mendieta MD 09/06/2016 01:49 P
== END ==
LOC: M RAD 10:11
PROVIDERS: ATTEND Advanced Practice Midwife
DX: N63 Unspecified lump in breast (principal); R10.32 Left lower quadrant pain; N88.8 Other specified noninflammatory disorders of cervix uteri
CPT/HCPCS: 76642; 76830; 76856; 93976; G0204

== ENCOUNTER 2016-11-06 21:42 | Inpatient (IN) | payer MEDICAID, OTHER, SELFPAY ==
[~2016-11-06] VITALS: Ht 167.6 cm; Wt 78.0 kg
[~2016-11-06 21:42] MED LIST changes: -HYDR-3363 PO; -SERT50TA PO
[2016-11-06 22:10] LABS: ABG HCO3 21.4 MEQ/L (22.0-26.0); ABG PARTIAL PRESSURE CO2 32.2 mmHg (35.0-45.0); ABG PARTIAL PRESSURE O2 87.5 mmHg (75.0-100.0); ABG STANDARD HCO3 22.8 MEQ/L (22.0-26.0); ABG TOTAL CO2 22.4 MEQ/L (22.0-29.0); ABG pH (ARTERIAL) 7.441 UNITS (7.350-7.450)
[2016-11-06] MEDS ORDERED: CHARCOAL ACTIVATED LIQUID 25 GM/120 ML BTL PO ONE (22:15)
[2016-11-06] MEDS ORDERED: NS 1,000 ML IV ONE (22:15)
[2016-11-06 22:23] LABS: BASO % 0.4 % (0.0-1.0); EOS # 0.1 K/mm3 (0.0-0.50); EOS % 0.8 % (0.0-3.0); LARGE UNSTAINED CELL # 0.2 K/mm3 (0.0-0.4); LARGE UNSTAINED CELL % 2.2 % (0.0-4.0); LYMPH # 1.8 K/mm3 (1.5-4.5); LYMPH % 22.5 % (24.0-44.0); MEAN CORPUSCULAR HEMOGLOBIN 30.4 pg (27.0-33.0); MEAN CORPUSCULAR HGB CONC 35.3 g/dl (32.0-36.5); MEAN CORPUSCULAR VOLUME 86.2 fl (80.0-96.0); MONO # 0.3 K/mm3 (0.0-0.8); MONO % 4.2 % (0.0-5.0); NEUTROPHILS # 5.7 K/mm3 (1.8-7.7); NEUTROPHILS % 69.9 % (36.0-66.0); PLATELET COUNT, AUTOMATED 404 k/mm3 (150-450); RED CELL DISTRIBUTION WIDTH 13.6 % (11.5-14.5); WHITE BLOOD COUNT 8.2 K/mm3 (4.0-10.0)
[2016-11-06 22:27] LABS: CONTROL LINE HCG INT CTR LINE PRESENT
[2016-11-06 22:42] LABS: ALBUMIN 3.6 GM/DL (3.2-5.2); ALKALINE PHOSPHATASE 75 U/L (45-117); ALT/SGPT 18 U/L (12-78); ANION GAP 8 MEQ/L (8-16); AST/SGOT 11 U/L (15-37); BILIRUBIN,DIRECT 0.1 MG/DL (0.0-0.2); BILIRUBIN,TOTAL 0.5 MG/DL (0.2-1.0); BLOOD UREA NITROGEN 4 MG/DL (7-18); CALCIUM LEVEL 8.4 MG/DL (8.5-10.1); CARBON DIOXIDE LEVEL 25 MEQ/L (21-32); CHLORIDE LEVEL 109 MEQ/L (98-107); CREATININE FOR GFR 0.68 MG/DL (0.55-1.02); GLOMERULAR FILTRATION RATE > 60.0 (>58); GLUCOSE, FASTING 104 MG/DL (70-105); POTASSIUM SERUM 3.1 MEQ/L (3.5-5.1); SODIUM LEVEL 142 MEQ/L (136-145); TOTAL PROTEIN 6.6 GM/DL (6.4-8.2)
[2016-11-06 23:00] LABS: METHADONE URINE NEGATIVE (NEGATIVE)
--- NOTE | 2016-11-07 08:31 | ECGEPIP ---
Stationary ECG Study [facility] - ED Test Date: 2016-11-06 Pat Name: ROLANDO MCINTYRE Department: Room: - Gender: F Family Literacy Coordinator: el : 1975 Requested By: KACI PONCE Order Number: [id number] Reading MD: Jada Diane Measurements Intervals [place] Rate: 60 P: 1 IN: 168 QRS: 9 QRSD: 88 T: 21 QT: 440 QTc: 440 Interpretive Statements SINUS RHYTHM LOW QRS VOLTAGE IN PRECORDIAL LEADS POSSIBLE INFERIOR MYOCARDIAL INFARCTION, PROBABLY OLD PRWP SIMILAR 10/31/16 Electronically Signed On 11-07-2016 8:31:20 EDT by Jada Diane
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
[2016-11-07] MEDS ORDERED: hydrOXYzine 25 MG TAB PO PRN (14:30)
[2016-11-07] MEDS ORDERED: traZODone 50 MG TAB PO PRN (14:30)
[2016-11-07 18:00] VITALS: BP 117/66
[2016-11-07] MEDS: SERTRALINE HCL 50 MG TAB PO SCH (20:48)
[2016-11-08 06:27] VITALS: BP 114/69
--- NOTE | 2016-11-08 10:53 | HPEPDOC ---
[facility] Medical History & Physical Date of Admission Nov 08, 2016 History and Physical PCP: Mike CONDON ATTENDING: Dr. Brandon Pina HPI: 40 yo F [facility] for unspecified depressive disorder, being medically examined today. The patient was brought to the emergency department via EMS after ingesting unknown pills and quantity. She subsequently stated she had ingested 4 Zanaflex and 2 Tylenol. The patient was treated with activated charcoal and IV fluids in the emergency department with consultation with poison control. Patient was medically stabilized and [facility] Patient states she was seen in the emergency department 11/06/16 and diagnosed with UTI. She was prescribed Macrobid and Pyridium, however she states she did not start this medication. She notes some lower abdominal discomfort however no back pain or flank pain, she denies dysuria, hematuria, frequency, urgency. Denies any fevers, chills, weakness, fatigue, MILTON, CP, SOB, cough, palpitations, N/V/D or changes in bowel or bladder habits. 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 ROS: As noted in HPI, otherwise 11pt ROS of systems reviewed and remarkable only for LMP unknown PE: GEN: 40 yoF, appears stated age. Well-nourished, well developed. No acute distress. Alert and oriented x 3. Pleasant, interactive. HEENT: Normocephalic, atraumatic. Pupils are equal, round, and reactive to light. Extraocular movements are intact. No nystagmus appreciated. Sclera are nonicteric. Conjunctiva without injection. Nose midline. Nasal turbinates without bogginess. EACs both patent BL. TMs both visualized and simms with good cone of light, no bulging or erythema. No facial asymmetry. Moist mucous membranes. Dentition fair. Pharynx pink and moist, no cobblestoning. Neck supple , trachea midline. No lymphadenopathy or thyromegaly appreciated. CHEST: Regular rate and rhythm, +S1, +S2 LUNGS: Clear to auscultation bilaterally. No wheezes, rales, or rhonchi. Breathing appears symmetric and easy. Patient is speaking in full sentences. No accessory muscle use. ABD: Round, soft, mild suprapubic discomfort, non-distended. +Bowel sounds throughout. No rebound or guarding. No costovertebral angle tenderness. EXT: Pulses 2+ bilaterally dorsalis pedis and radial. No lower extremity edema appreciated. SKIN: Dexter, dry, warm. Capillary refill <2sec. No rashes. NEURO: Alert and oriented x 3. Cranial nerves III-XII are intact. No focal deficits appreciated. EKG: SINUS RHYTHM LOW QRS VOLTAGE IN PRECORDIAL LEADS POSSIBLE INFERIOR MYOCARDIAL INFARCTION, PROBABLY OLD PRWP SIMILAR 10/31/16 A&P: 40 yo F [facility] for unspecified depressive disorder 1. Psych. Plan per Psychiatry. EKG on file. 2. Nicotine dependence. Patch available. 3. Borderline EKG. No cardiac signs or symptoms appreciated on exam, follow with PCP. 4. Follow up with PCP on discharge. 5. Hypokalemia. Recheck BMP. 6. Allergic rhinitis. Continue Claritin 10 mg daily. 7. GERD. Continue Protonix 40 mg daily. 8. Chronic back pain/low back pain. Continue Tylenol 650 mg every 6 hours as needed. 9. History of UTI. Urine culture 07/31/16 is noted to be negative. Urinalysis in the emergency department 11/05/16 indicated 2+ leukocyte Estrace, positive nitrite. The patient was started on Macrobid, however the patient states she never filled this medication. She states she did not fill the prescription. Request UA/urine culture. Patient is afebrile. No leukocytosis. 10. Staff member Kelle CALI present throughout exam. Vital Signs Vital Signs Date Time Temp Pulse Resp B/P (MAP) Pulse Ox O2 Delivery O2 Flow Rate FiO2 11/08/16 06:27 96.9 66 20 114/69 (84) 11/07/16 08:33 97 Room Air Laboratory Data Labs 24H Item Value Date Time White Blood Count 8.2 K/mm3 11/06/162158 Red Blood Count 3.66 M/mm3 L 11/06/162158 Hemoglobin 11.1 g/dl L 11/06/162158 Hematocrit 31.6 % L 11/06/162158 Mean Corpuscular Volume 86.2 fl 11/06/162158 Mean Corpuscular Hemoglobin 30.4 pg 11/06/162158 Mean Corpuscular Hemoglobin Concent 35.3 g/dl 11/06/162158 Red Cell Distribution Width 13.6 % 11/06/162158 Platelet Count 404 k/mm3 11/06/162158 Sodium Level 142 MEQ/L 11/06/162158 Potassium Level 3.1 MEQ/L L 11/06/162158 Chloride Level 109 MEQ/L H 11/06/162158 Carbon Dioxide Level 25 MEQ/L 11/06/162158 Anion Gap 8 MEQ/L 11/06/162158 Blood Urea Nitrogen 4 MG/DL L 11/06/162158 Creatinine 0.68 MG/DL 11/06/162158 Glomerular Filtration Rate > 60.0 11/06/162158 Fasting Glucose 104 MG/DL 11/06/162158 Lactic Acid Level 1.2 MMOL/L 11/06/162228 Calcium Level 8.4 MG/DL L 11/06/162158 Total Bilirubin 0.5 MG/DL 11/06/162158 Direct Bilirubin 0.1 MG/DL 11/06/162158 Aspartate Amino Transf (AST/SGOT) 11 U/L L 11/06/162158 Alanine Aminotransferase (ALT/SGPT) 18 U/L 11/06/162158 Alkaline Phosphatase 75 U/L 11/06/162158 Total Creatine Kinase 101 U/L 11/06/162158 Total Protein 6.6 GM/DL 11/06/162158 Albumin 3.6 GM/DL 11/06/162158 Albumin/Globulin Ratio 1.20 11/06/162158 Thyroid Stimulating Hormone (TSH) 2.030 uIU/ML 11/06/162158 Human Chorionic Gonadotropin, Qual NEGATIVE 11/06/162158 Salicylates Level < 1.7 MG/DL L 11/07/16 0327 Urine Opiates Screen NEGATIVE 11/06/162228 Urine Methadone Screen NEGATIVE 11/06/162228 Acetaminophen Level < 2.0 UG/ML L 11/07/16 0327 Urine Barbiturates Screen NEGATIVE 11/06/162228 Urine Phencyclidine Screen NEGATIVE 11/06/162228 Urine Amphetamines Screen NEGATIVE 11/06/16 222 Urine Benzodiazepines Screen NEGATIVE 11/06/162228 Urine Cocaine Metabolite Screen NEGATIVE 11/06/162228 Urine Cannabinoids Screen NEGATIVE 11/06/162228 Ethyl Alcohol Level < 0.003 % 11/06/162158 Acetaminophen Level < 2.0 UG/ML L 11/06/162158 Salicylates Level < 1.7 MG/DL L 11/06/162158 Home Medications Scheduled Loratadine (Loratadine) 10 Mg Tab, 10 MG PO QHS Pantoprazole Sodium (Pantoprazole Sodium) 20 Mg Tab, 20 MG PO QHS Sertraline Hcl (Zoloft) 100 Mg Tab, 150 MG PO QHS Scheduled PRN Tizanidine HCl (Tizanidine HCl) 2 Mg Tab, 2 MG PO Q8H PRN for SPASMS Allergies Coded Allergies: Latex (Verified Allergy, Intermediate, RASH, 08/09/16) Acetaminophen (Verified Adverse Reaction, Unknown, vomit, 10/31/16) Amoxicillin (Verified Adverse Reaction, Unknown, vomit, 10/31/16) Hydrocodone (Verified Adverse Reaction, Unknown, vomit, 10/31/16) Kalyani Talley Nov 08, 2016 10:52
--- NOTE | 2016-11-08 13:11 | MHIPNPDOC ---
[facility] Progress Note Progress Note DATE OF SERVICE: 11/08/16 HISTORY: day 2 of admission for depression with SI VITAL SIGNS: See below. NEW TEST RESULTS: . 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 MENTAL STATUS EXAMINATION: General appearance: Patient is a 40-year old female, who is average height, long dark hair, good eye contact, wearing hospital PJ's. Speech: clear, spontaneous Thought processes: linear Thought content: appropriate Abstract reasoning and computation: good Description of associations: good Description of abnormal or psychotic thoughts: none and denies current desire to end her life Judgment: fair Insight: fair Orientation: well oriented x 4 Recent and remote memory: grossly intact Attention span and concentration: good Fund of knowledge: Full Mood: depressed, Affect: congruent. DIAGNOSES: 1. MDD, recurrent, severe, without psychotic features 2. Generalized anxiety disorder ASSESSMENT:pt attending groups and adhering to medication schedule and unit protocols. Interacting appropriately with peers and staff. Slept well. Eating at meal times. Pt not feeling very well today. Lots of stomach discomfort and general malaise. AC is making room very cold. Requested assistance for her in getting it lowered. MANAGEMENT PLAN: continue meds, pt is homeless and deciding where she wants to locate. continue safety monitoring as she is very much at risk but doubtful she would do anything on the unit. This is the 2nd suicide attempt in 3 months. continue safety monitoring and enc pt to leave her room when feeling better to interact with peers. TIME SPENT: 15 minutes. Vital Signs Vital Signs Date Time Temp Pulse Resp B/P (MAP) Pulse Ox O2 Delivery O2 Flow Rate FiO2 11/08/16 06:27 96.9 66 20 114/69 (84) 11/07/16 08:33 97 Room Air Laboratory Data 24H Labs Laboratory Tests 2 11/08/16 12:22: Current Medications Current Medications Home Med (Med Rec Complete!) ASDIRECTED XX ; Start 11/07/16 at 05:30; Stop at 05:30; Status DC Hydroxyzine HCl (Atarax) 25 mg Q6HP PRN PO ANXIETY; Start 11/07/16 at 14:30; Stop 12/07/16 at 14:29 Loratadine (Claritin) 10 mg QHS PO ; Start 11/08/16 at 21:00; Stop 12/08/16 at 20:59 Nitrofurantoin Monoh/Nitrofur Macro (Macrobid) 100 mg BID PO ; Start 11/08/16 at 09:00; Stop 11/18/16 at 08:59 Pantoprazole Sodium (Protonix) 20 mg QHS PO ; Start 11/08/16 at 21:00; Stop at 20:59 Sertraline HCl (Zoloft) 150 mg QHS PO Last administered on 11/07/16t 20:48; Start 11/07/16 at 21:00; Stop 12/07/16 at 20:59 Trazodone HCl (Desyrel) 50 mg QHSP PRN PO INSOMNIA; Start 11/07/16 at 14:30; Stop 12/07/16 at 14:29 Allergies Coded Allergies: Latex (Verified Allergy, Intermediate, RASH, 08/09/16) Acetaminophen (Verified Adverse Reaction, Unknown, vomit, 10/31/16) Amoxicillin (Verified Adverse Reaction, Unknown, vomit, 10/31/16) Hydrocodone (Verified Adverse Reaction, Unknown, vomit, 10/31/16) Letty Kee Nov 08, 2016 13:11
[2016-11-08 13:20] LABS: ANION GAP 6 MEQ/L (8-16); BLOOD UREA NITROGEN 7 MG/DL (7-18); CALCIUM LEVEL 8.9 MG/DL (8.5-10.1); CARBON DIOXIDE LEVEL 26 MEQ/L (21-32); CHLORIDE LEVEL 107 MEQ/L (98-107); CREATININE FOR GFR 0.58 MG/DL (0.55-1.02); GLOMERULAR FILTRATION RATE > 60.0 (>58); GLUCOSE, FASTING 86 MG/DL (70-105); POTASSIUM SERUM 3.5 MEQ/L (3.5-5.1); SODIUM LEVEL 139 MEQ/L (136-145)
[2016-11-08] MEDS: NITROFURANTOIN (MACROBID) 100 MG CAP PO SCH ×2 (14:16→20:58)
[2016-11-08 15:59] LABS: CALCIUM OXALATE CRYSTALS SMALL
[2016-11-08 18:28] VITALS: BP 120/68
[2016-11-08] MEDS: LORATADINE 10 MG TAB PO SCH (20:58)
[2016-11-08] MEDS: PANTOPRAZOLE 20 MG TAB PO SCH (20:58)
[2016-11-08] MEDS: SERTRALINE HCL 50 MG TAB PO SCH (20:58)
[2016-11-09 07:17] VITALS: BP 114/66
[2016-11-09] MEDS ORDERED: INFLUENZA QUADRIVALENT PF VACCINE 0.5ML SYRINGE (90686) IM ONE (09:00)
[2016-11-09] MEDS: NITROFURANTOIN (MACROBID) 100 MG CAP PO SCH ×2 (09:02→21:11)
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
[2016-11-09 18:22] VITALS: BP 118/69
[2016-11-09] MEDS: SERTRALINE HCL 50 MG TAB PO SCH (21:11)
[2016-11-09] MEDS: LORATADINE 10 MG TAB PO SCH (21:11)
[2016-11-09] MEDS: PANTOPRAZOLE 20 MG TAB PO SCH (21:11)
[2016-11-10 06:00] VITALS: BP 105/64
[2016-11-10] MEDS: NITROFURANTOIN (MACROBID) 100 MG CAP PO SCH ×2 (08:57→21:42)
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
[2016-11-10 18:43] VITALS: BP 120/66
[2016-11-10] MEDS: SERTRALINE HCL 50 MG TAB PO SCH (21:42)
[2016-11-10] MEDS: PANTOPRAZOLE 20 MG TAB PO SCH (21:42)
[2016-11-10] MEDS: LORATADINE 10 MG TAB PO SCH (21:42)
[2016-11-11 06:46] VITALS: BP 116/58
[2016-11-11] MEDS: BACTRIM 160MG/800MG DS TAB PO SCH ×2 (08:54→21:43)
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
[2016-11-11 18:00] VITALS: BP 110/62
[2016-11-11] MEDS: SERTRALINE HCL 50 MG TAB PO SCH (21:43)
[2016-11-11] MEDS: PANTOPRAZOLE 20 MG TAB PO SCH (21:43)
[2016-11-11] MEDS: LORATADINE 10 MG TAB PO SCH (21:43)
[2016-11-12 06:22] VITALS: BP 104/56
[2016-11-12] MEDS: BACTRIM 160MG/800MG DS TAB PO SCH ×2 (08:47→21:07)
--- NOTE | 2016-11-12 17:04 | MHIPNPDOC ---
[facility] Progress Note Progress Note DATE OF SERVICE: 11/12/16 HISTORY: pt admitted via er after breakup of relationship where she attempted suicide 2 days prior but was released from ED as she made up a different story.returned for help. VITAL SIGNS: See below. NEW TEST RESULTS: na. CURRENT MEDICATIONS: See below. MENTAL STATUS EXAMINATION: General appearance: Patient is a 40-year old female, who is average height, long dark hair, good eye contact, wearing glasses, wearing street clothes, pleasant and cooperative. Speech: clear, spontaneous Thought processes: linear Thought content: appropriate Abstract reasoning and computation: good Description of associations: good Description of abnormal or psychotic thoughts: none and denies current desire to end her life Judgment: fair Insight: fair Orientation: well oriented x 4 Recent and remote memory: grossly intact Attention span and concentration: good Fund of knowledge: Full Mood: euthymic Affect: congruent . DIAGNOSES: 1. MDD, recurrent, severe, without psychotic features 2. Generalized anxiety disorder ASSESSMENT:pt is visible in milieu, attending therapeutic programming and working on discharge planning. Attended treatment team meeting this a.m. Plans to move to her Aunt's in [place] and continue her outpatient treatment at [facility] until she can be seen in [place] at [facility]. pt is free of SI but lacks insight into the seriousness of her actions. Pt will benefit from ongoing therapy. She has not been compliant with keeping appts in the past and this needs to change for her. We discussed it and it made her angry. MANAGEMENT PLAN: anticipate discharge tomorrow, family meeting first. will explain concern about keeping appts and using therapy to her benefit. TIME SPENT: 15 minutes. Vital Signs Vital Signs Date Time Temp Pulse Resp B/P (MAP) Pulse Ox O2 Delivery O2 Flow Rate FiO2 11/12/16 06:22 97.5 72 18 104/56 (72) 11/10/16 06:00 Room Air 11/07/16 08:33 97 Current Medications Current Medications Home Med (Med Rec Complete!) ASDIRECTED XX ; Start 11/07/16 at 05:30; Stop at 05:30; Status DC Hydroxyzine HCl (Atarax) 25 mg Q6HP PRN PO ANXIETY; Start 11/07/16 at 14:30; Stop 12/07/16 at 14:29 Loratadine (Claritin) 10 mg QHS PO Last administered on 11/11/16 21:43; Start 11/08/16 at 21:00; Stop 12/08/16 at 20:59 Nitrofurantoin Monoh/Nitrofur Macro (Macrobid) 100 mg BID PO Last administered on 11/10/16 21:42; Start 11/08/16 at 09:00; Stop 11/11/16 at 07:50; Status DC Pantoprazole Sodium (Protonix) 20 mg QHS PO Last administered on 11/11/16 21: 43; Start 11/08/16 at 21:00; Stop 12/08/16 at 20:59 Sertraline HCl (Zoloft) 150 mg QHS PO Last administered on 11/11/16 21:43; Start 11/07/16 at 21:00; Stop 12/07/16 at 20:59 Trazodone HCl (Desyrel) 50 mg QHSP PRN PO INSOMNIA; Start 11/07/16 at 14:30; Stop 12/07/16 at 14:29 Trimethoprim/ Sulfamethoxazole (Bactrim Ds, Septra Ds 160mg/ 800mg) 1 tab BID PO Last administered on 11/12/16 08:47; Start 11/11/16 at 09:00; Stop at 21:01 Allergies Coded Allergies: Latex (Verified Allergy, Intermediate, RASH, 08/09/16) Acetaminophen (Verified Adverse Reaction, Unknown, vomit, 10/31/16) Amoxicillin (Verified Adverse Reaction, Unknown, vomit, 10/31/16) Hydrocodone (Verified Adverse Reaction, Unknown, vomit, 10/31/16) Letty Kee Nov 12, 2016 17:04
[2016-11-12 18:00] VITALS: BP 127/65
[2016-11-12] MEDS: SERTRALINE HCL 50 MG TAB PO SCH (21:07)
[2016-11-12] MEDS: LORATADINE 10 MG TAB PO SCH (21:07)
[2016-11-12] MEDS: PANTOPRAZOLE 20 MG TAB PO SCH (21:08)
[2016-11-13 07:04] VITALS: BP 114/67
[2016-11-13] MEDS ORDERED: HYDR-3363 PO (08:30)
[2016-11-13] MEDS: BACTRIM 160MG/800MG DS TAB PO SCH (08:42)
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
[2016-11-13] MEDS ORDERED: SERT50TA PO (11:54)
== END 2016-11-13 11:50 | disposition home or self-care (01) | DRG 751 ==
LOC: M ED 21:42 → EDBD 21:42 → M ED INP 11-07 08:39 → M PSY 11-07 09:37
PROVIDERS: ADMIT Psychiatry & Neurology Psychiatry; ATTEND Psychiatry & Neurology Child & Adolescent Psychiatry
DX: F33.2 Major depressive disorder, recurrent severe without psychotic features (principal); R45.851 Suicidal ideations; R94.31 Abnormal electrocardiogram [ECG] [EKG]; E87.6 Hypokalemia; K21.9 Gastro-esophageal reflux disease without esophagitis; M54.2 Cervicalgia; J30.9 Allergic rhinitis, unspecified; M54.5 Low back pain; Z91.040 Latex allergy status; Z88.1 Allergy status to other antibiotic agents; Z88.6 Allergy status to analgesic agent; Z88.5 Allergy status to narcotic agent; Z79.899 Other long term (current) drug therapy; Z98.51 Tubal ligation status; F17.200 Nicotine dependence, unspecified, uncomplicated

== ENCOUNTER 2017-02-03 01:12 | Emergency (ER) | payer MEDICAID, OTHER, SELFPAY ==
[~2017-02-03] VITALS: Ht 165.1 cm; Wt 82.7 kg
[~2017-02-03 01:12] MED LIST changes: +HYDR-3363 PO; +SERT50TA PO
[2017-02-03] MEDS ORDERED: KETOROLAC 30 MG/ML VIAL (J1885) IM ONE (02:15)
[2017-02-03] MEDS ORDERED: CYCLOBENZAPRINE 5MG TABLET PO ONE (02:15)
[2017-02-03] MEDS ORDERED: CYCL5TAB PO (02:38)
[2017-02-03] MEDS ORDERED: IBUP-1022 PO (02:38)
[2017-02-03 02:44] VITALS: BP 123/78
--- NOTE | 2017-02-03 04:23 | REP ---
Clinical: Pain with recent trauma/fall. Technique: AP, lateral, bilateral oblique, and coned-down views. Findings: Alignment and lordosis is maintained. The vertebral bodies including transverse process and spinous processes are intact and normal. There is no evidence for acute fracture / compression injury or subluxation. No evidence for spondylolysis or spondylolisthesis. No significant degenerative change is noted. Impression: Normal lumbosacral spine radiograph series. Signed by Marlon Grossman MD 02/03/2017 01:15 A
== END 2017-02-03 02:55 | disposition home or self-care (01) ==
LOC: M ED 01:12
DX: M54.9 Dorsalgia, unspecified (principal); F41.9 Anxiety disorder, unspecified; F33.9 Major depressive disorder, recurrent, unspecified; F17.210 Nicotine dependence, cigarettes, uncomplicated; Z79.899 Other long term (current) drug therapy
CPT/HCPCS: 72110; 96372; 99283; J1885

== ENCOUNTER → 2017-03-12 | Outpatient (CLI) | payer OTHER | LOC: M RAD 18:12 | DX: M25.551 Pain in right hip (principal) | CPT/HCPCS: 73030 ==

== ENCOUNTER 2017-04-27 00:51 | Emergency (ER) | payer OTHER ==
[2017-04-27] MEDS: BENZONATATE 100 MG CAP PO (01:28)
[2017-04-27] MEDS: ALBUTEROL SULFATE 2.5 MG/0.5 ML INH NEB SOLN INH (01:38)
== END 2017-04-27 03:00 | disposition home or self-care (01) ==
LOC: M ED 00:51
DX: J20.9 Acute bronchitis, unspecified (principal); J02.9 Acute pharyngitis, unspecified; K21.9 Gastro-esophageal reflux disease without esophagitis; F17.210 Nicotine dependence, cigarettes, uncomplicated; F33.9 Major depressive disorder, recurrent, unspecified; F41.9 Anxiety disorder, unspecified; Z79.899 Other long term (current) drug therapy; Z88.8 Allergy status to other drugs, medicaments and biological substances; Z88.0 Allergy status to penicillin; Z88.5 Allergy status to narcotic agent; Z91.040 Latex allergy status; Z87.19 Personal history of other diseases of the digestive system; Z87.448 Personal history of other diseases of urinary system; Z86.39 Personal history of other endocrine, nutritional and metabolic disease; Z91.5 Personal history of self-harm
CPT/HCPCS: 71046

== ENCOUNTER → 2017-05-08 | Outpatient (CLI) | payer OTHER | LOC: M RAD 14:14 | DX: N63.10 Unspecified lump in the right breast, unspecified quadrant (principal) | CPT/HCPCS: 76642 ==

== ENCOUNTER → 2017-05-09 | Outpatient (REF) | payer OTHER ==
[2017-05-09 20:29] LABS: HEMATOCRIT 35.8 % (36.0-47.0); HEMOGLOBIN 11.7 g/dl (12.0-16.0); MEAN CORPUSCULAR HGB CONC 32.7 g/dl (32.0-36.5); MEAN CORPUSCULAR VOLUME 88.8 fl (80.0-96.0); PLATELET COUNT, AUTOMATED 431 10^3/uL (150-450); RED BLOOD COUNT 4.03 10^6/uL (4.00-5.40); RED CELL DISTRIBUTION WIDTH 13.9 % (11.5-14.5)
[2017-05-09 20:50] LABS: ALBUMIN 3.6 GM/DL (3.2-5.2); ALBUMIN/GLOBULIN RATIO 1.03 (1.00-1.93); ALKALINE PHOSPHATASE 82 U/L (45-117); ALT/SGPT 24 U/L (12-78); ANION GAP 6 MEQ/L (8-16); AST/SGOT 18 U/L (7-37); BILIRUBIN,TOTAL 0.3 MG/DL (0.2-1.0); BLOOD UREA NITROGEN 6 MG/DL (7-18); CALCIUM LEVEL 8.3 MG/DL (8.5-10.1); CARBON DIOXIDE LEVEL 29 MEQ/L (21-32); CHLORIDE LEVEL 107 MEQ/L (98-107); CREATININE FOR GFR 0.57 MG/DL (0.55-1.30); GLOMERULAR FILTRATION RATE > 60.0 (>58); GLUCOSE, FASTING 65 MG/DL (70-100); SODIUM LEVEL 142 MEQ/L (136-145); TOTAL PROTEIN 7.1 GM/DL (6.4-8.2)
[2017-05-09 20:51] LABS: TOTAL 25(OH) VITAMIN D 28.5 NG/ML (30.0-100.0)
== END ==
LOC: M SFHCLERA 15:28
DX: R94.6 Abnormal results of thyroid function studies (principal); E55.9 Vitamin D deficiency, unspecified; E04.2 Nontoxic multinodular goiter

== ENCOUNTER → 2017-06-03 | Outpatient (CLI) | payer OTHER | LOC: M RAD 16:46 | DX: E04.1 Nontoxic single thyroid nodule (principal) | CPT/HCPCS: 76536 ==

== ENCOUNTER 2017-06-07 08:58 | Emergency (ER) | payer OTHER, MEDICAID ==
[2017-06-07] MEDS: ADACEL/BOOSTRIX VACCINE (DIPHTH/PERTUSS/ACELL/TETANUS)0.5ML SYR (90715) IM (09:39)
== END 2017-06-07 09:56 | disposition home or self-care (01) ==
LOC: M ED 08:58
DX: S71.111A Laceration without foreign body, right thigh, initial encounter (principal); W26.0XXA Contact with knife, initial encounter; Y92.59 Other trade areas as the place of occurrence of the external cause; Y93.89 Activity, other specified; Y99.0 Civilian activity done for income or pay; F33.9 Major depressive disorder, recurrent, unspecified; F41.9 Anxiety disorder, unspecified; Z88.8 Allergy status to other drugs, medicaments and biological substances; Z88.0 Allergy status to penicillin; Z88.5 Allergy status to narcotic agent; Z91.040 Latex allergy status; Z79.899 Other long term (current) drug therapy
CPT/HCPCS: 90715

== ENCOUNTER → 2017-10-27 | Outpatient (CLI) | payer OTHER ==
[2017-10-27 13:51] LABS: APPEARANCE, URINE HAZY (CLEAR); BACTERIA, URINE AUTO NEGATIVE (NEGATIVE); BILIRUBIN, URINE AUTO NEGATIVE (NEGATIVE); BLOOD, URINE BLOOD 1+ (NEGATIVE); COLOR, URINE YELLOW (YELLOW); GLUCOSE, URINE (UA) AUTO NEGATIVE (NEGATIVE); KETONE, URINE AUTO NEGATIVE (NEGATIVE); LEUKOCYTE ESTERASE, URINE AUTO NEGATIVE (NEGATIVE); NITRITE, URINE AUTO NEGATIVE (NEGATIVE); PROTEIN, URINE AUTO NEGATIVE (NEGATIVE); RBC, URINE AUTO 9 /HPF (0-3); SPECIFIC GRAVITY URINE AUTO 1.016 (1.002-1.035); SQUAMOUS EPITHELIAL CELL UR AU 3 /HPF (0-6); UROBILINOGEN, URINE AUTO 0.2 mg/dL (0.0-2.0); WBC, URINE AUTO 2 /HPF (0-3)
== END ==
LOC: M LAB 12:25
DX: N23 Unspecified renal colic (principal); N39.0 Urinary tract infection, site not specified
CPT/HCPCS: 74018

== ENCOUNTER 2018-01-05 11:55 | Emergency (ER) | payer OTHER ==
[2018-01-05 13:14] LABS: VENOUS BASE EXCESS -1.8 (-2.0-2.0); VENOUS HCO3 24.7 MEQ/L (23.0-27.0); VENOUS O2 SATURATION 55.5 % (60.0-80.0); VENOUS PARTIAL PRESSURE O2 31.3 mmHg (30.0-50.0); VENOUS STANDARD HCO3 22.1 MEQ/L; VENOUS TOTAL CO2 26.2 MEQ/L (24.0-28.0)
[2018-01-05 13:27] LABS: BASO % 0.6 % (0.0-1.0); EOS # 0.1 10^3/uL (0.0-0.50); EOS % 1.3 % (0.0-3.0); HEMATOCRIT 35.1 % (36.0-47.0); HEMOGLOBIN 11.6 g/dl (12.0-15.5); IMMATURE GRANULOCYTE % 0.2 % (0-3.0); LYMPH # 2.8 10^3/uL (1.5-4.5); LYMPH % 45.6 % (24.0-44.0); MEAN CORPUSCULAR HEMOGLOBIN 28.6 pg (27.0-33.0); MEAN CORPUSCULAR VOLUME 86.7 fl (80.0-96.0); MONO # 0.5 10^3/uL (0.0-0.8); MONO % 7.4 % (0.0-5.0); NEUTROPHILS # 2.8 10^3/uL (1.8-7.7); NEUTROPHILS % 44.9 % (36.0-66.0); PLATELET COUNT, AUTOMATED 388 10^3/uL (150-450); RED BLOOD COUNT 4.05 10^6/uL (4.00-5.40); RED CELL DISTRIBUTION WIDTH 13.5 % (11.5-14.5); WHITE BLOOD COUNT 6.2 10^3/uL (4.0-10.0)
[2018-01-05 13:51] LABS: LACTIC ACID SEPSIS PROTOCOL 1.7 MMOL/L (0.4-2.0)
[2018-01-05 13:51] LABS: INFLUENZA A AMPLIFICATION NEGATIVE (NEGATIVE); INFLUENZA B AMPLIFICATION NEGATIVE (NEGATIVE); RSV AMPLIFICATION NEGATIVE (NEGATIVE)
[2018-01-05 13:59] LABS: ALBUMIN 3.4 GM/DL (3.2-5.2); ALBUMIN/GLOBULIN RATIO 1.06 (1.00-1.93); ALKALINE PHOSPHATASE 80 U/L (45-117); ALT/SGPT 23 U/L (12-78); ANION GAP 7 MEQ/L (8-16); AST/SGOT 18 U/L (7-37); BILIRUBIN,DIRECT < 0.1 MG/DL (0.0-0.2); BILIRUBIN,TOTAL 0.3 MG/DL (0.2-1.0); BLOOD UREA NITROGEN 10 MG/DL (7-18); CALCIUM LEVEL 8.5 MG/DL (8.5-10.1); CARBON DIOXIDE LEVEL 27 MEQ/L (21-32); CHLORIDE LEVEL 107 MEQ/L (98-107); CK-MB VALUE MASS < 1.0 NG/ML (<3.6); CPK CREATINE PHOSPHOKINASE 122 U/L (26-192); CREATININE FOR GFR 0.66 MG/DL (0.55-1.30); GLOMERULAR FILTRATION RATE > 60.0 (>58); GLUCOSE, FASTING 87 MG/DL (70-100); MB/CK RELATIVE INDEX 0.82 (< OR =4); POTASSIUM SERUM 3.8 MEQ/L (3.5-5.1); SODIUM LEVEL 141 MEQ/L (136-145); TOTAL PROTEIN 6.6 GM/DL (6.4-8.2); TROPONIN I < 0.02 NG/ML (< 0.10)
[2018-01-05] MEDS ORDERED: ISOVUE-370 76% 100ML VIAL (Q9967) As Ordered (14:17)
[2018-01-05] MEDS: KETOROLAC 30 MG/ML VIAL (J1885) IV (14:59)
== END 2018-01-05 16:18 | disposition home or self-care (01) ==
LOC: M ED 11:55
DX: M94.0 Chondrocostal junction syndrome [Tietze] (principal); K21.9 Gastro-esophageal reflux disease without esophagitis
CPT/HCPCS: Q9967

== ENCOUNTER → 2018-04-22 | Outpatient (CLI) | payer OTHER ==
[~2018-04-22] MED LIST changes: +BENZ200C70 PO; -CLON0.5T PO; +CLON0.5T8 PO; +CYCL5TAB PO; +FLON1SPR; +IBUP-1022 PO; +IBUP-1114 PO; +LORA-243 PO; -LORA10TA2 PO; +MUCI600T37 PO; -PANT20TA PO; +PANT20TA2 PO; +VENTAER IN
--- NOTE | 2018-04-23 02:54 | REP ---
Clinical: Trauma/fall . Technique: Internal rotation, external rotation, and Y view right shoulder . Findings: No acute fracture or dislocation. The acromioclavicular and glenohumeral joints are intact. No periarticular calcifications or degenerative changes are appreciated. Sub acromial space is normal. Surrounding soft tissues are unremarkable. Impression: Normal right shoulder radiographs. Electronically Signed by Marlon Grossman MD 04/23/2018 02:46 A
== END ==
LOC: M ADAMS 18:27
PROVIDERS: ATTEND Physician Assistant
DX: M25.511 Pain in right shoulder (principal)

== ENCOUNTER 2018-05-05 12:53 | Emergency (ER) | payer OTHER ==
[~2018-05-05] VITALS: Ht 165.1 cm; Wt 83.6 kg
[2018-05-05] MEDS ORDERED: LORA-243 (12:59)
[2018-05-05] MEDS ORDERED: WOMECAP2 PO (12:59)
[2018-05-05] MEDS ORDERED: RANI150T (12:59)
[2018-05-05] MEDS ORDERED: VITA100T59 PO (12:59)
[2018-05-05] MEDS ORDERED: ACET-683 PO (13:22)
[2018-05-05] MEDS ORDERED: LIDOCAINE VISCOUS 2% SOLN 15ML UDC MT ONE (14:30)
[2018-05-05] MEDS ORDERED: CLINDAMYCIN 150 MG CAP PO ONE (14:30)
[2018-05-05] MEDS ORDERED: CLEO300C2 PO (14:34)
[2018-05-05] MEDS ORDERED: TRAM50TA2 PO (14:34)
[2018-05-05] MEDS ORDERED: DIFL150T PO (14:37)
[2018-05-05 14:43] VITALS: BP 142/64
== END 2018-05-05 14:44 | disposition home or self-care (01) ==
LOC: M ED 12:53
DX: S02.5XXA Fracture of tooth (traumatic), initial encounter for closed fracture (principal); K08.89 Other specified disorders of teeth and supporting structures; X58.XXXA Exposure to other specified factors, initial encounter; Y92.89 Other specified places as the place of occurrence of the external cause; Z91.5 Personal history of self-harm; K21.9 Gastro-esophageal reflux disease without esophagitis; Z88.0 Allergy status to penicillin; Z88.6 Allergy status to analgesic agent; Z88.5 Allergy status to narcotic agent; Z91.040 Latex allergy status; Z79.899 Other long term (current) drug therapy

== ENCOUNTER 2018-06-22 22:09 | Emergency (ER) | payer OTHER ==
[~2018-06-22] VITALS: Ht 165.1 cm; Wt 81.4 kg
[~2018-06-22 22:09] MED LIST changes: +ACET-683 PO; +ARIP1TAB4 PO; -ARIP2TAB PO; +CLEO300C2 PO; +DIFL150T PO; +LORA-243; +RANI150T; +SERT-141 PO; -SERT50TA PO; +VITA100T59 PO; +WOMECAP2 PO
[2018-06-23 01:05] VITALS: BP 124/77
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
[2018-06-23] MEDS ORDERED: IBUP80TA PO (01:54)
== END 2018-06-23 02:01 | disposition home or self-care (01) ==
LOC: M ED 22:09
DX: S90.32XA Contusion of left foot, initial encounter (principal); W22.8XXA Striking against or struck by other objects, initial encounter; Y92.89 Other specified places as the place of occurrence of the external cause; Z88.5 Allergy status to narcotic agent; Z88.1 Allergy status to other antibiotic agents; Z91.040 Latex allergy status; Z79.899 Other long term (current) drug therapy

== ENCOUNTER 2018-09-15 10:53 | Emergency (ER) | payer OTHER ==
[~2018-09-15] VITALS: Ht 165.1 cm; Wt 79.1 kg
[~2018-09-15 10:53] MED LIST changes: +CLON0.5T2 PO; -CLON0.5T8 PO; +IBUP80TA PO; +RANI150T14; +SERT-138; +TRAM50TA2
[2018-09-15 12:17] LABS: BASO % 0.3 % (0.0-1.0); HEMATOCRIT 31.4 % (36.0-47.0); HEMOGLOBIN 10.8 g/dl (12.0-15.5); LYMPH # 0.9 10^3/uL (1.5-4.5); LYMPH % 7.1 % (24.0-44.0); MEAN CORPUSCULAR HEMOGLOBIN 29.1 pg (27.0-33.0); MEAN CORPUSCULAR HGB CONC 34.4 g/dl (32.0-36.5); MEAN CORPUSCULAR VOLUME 84.6 fl (80.0-96.0); MONO # 1.2 10^3/uL (0.0-0.8); MONO % 9.6 % (0.0-5.0); NEUTROPHILS # 10.5 10^3/uL (1.8-7.7); NEUTROPHILS % 82.6 % (36.0-66.0); PLATELET COUNT, AUTOMATED 333 10^3/uL (150-450); RED BLOOD COUNT 3.71 10^6/uL (4.00-5.40); WHITE BLOOD COUNT 12.7 10^3/uL (4.0-10.0)
[2018-09-15 12:47] LABS: ALBUMIN 3.3 GM/DL (3.2-5.2); ALT/SGPT 14 U/L (12-78); BILIRUBIN,DIRECT 0.2 MG/DL (0.0-0.2); BLOOD UREA NITROGEN 8 MG/DL (7-18); CALCIUM LEVEL 8.7 MG/DL (8.5-10.1); CARBON DIOXIDE LEVEL 27 MEQ/L (21-32); CHLORIDE LEVEL 104 MEQ/L (98-107); CREATININE FOR GFR 0.62 MG/DL (0.55-1.30); GLOMERULAR FILTRATION RATE > 60.0 (>58); GLUCOSE, FASTING 97 MG/DL (70-100); LIPASE 87 U/L (73-393); POTASSIUM SERUM 3.3 MEQ/L (3.5-5.1); SODIUM LEVEL 136 MEQ/L (136-145); TOTAL PROTEIN 6.7 GM/DL (6.4-8.2)
[2018-09-15] MEDS ORDERED: METOCLOPRAMIDE INJ 10MG/2ML VIAL (J2765) IV ONE (13:00)
[2018-09-15] MEDS ORDERED: CIPROFLOXACIN 400 MG in IV 1 EA IV ONE (13:00)
[2018-09-15] MEDS ORDERED: NS 1,000 ML IV ONE (13:00)
[2018-09-15] MEDS ORDERED: KETOROLAC 30 MG/ML VIAL (J1885) IV ONE (13:00)
--- NOTE | 2018-09-15 14:24 | REP ---
Clinical: Bilateral flank pain. Technique: Real time simms scale ultrasound examination using curved array transducer. Findings: Bilateral kidneys are normal in contour, size, echogenicity, and reniform shape without hydronephrosis, nephrolithiasis, cystic or renal mass lesion. Right kidney measures 9.9 x 4.6 x 4.8 cm. Left kidney measures 10.9 x 5.3 x 5.8 cm. Bladder is grossly unremarkable. Incidental note is made of a cholelithiasis. Impression: 1. Normal bilateral kidneys. No hydronephrosis. 2. Cholelithiasis. Electronically Signed by Marlon Grossman MD 09/15/2018 02:15 P
[2018-09-15] MEDS ORDERED: CIPR-249 PO (15:25)
[2018-09-15] MEDS ORDERED: REGL10TA6 PO (15:25)
[2018-09-15 15:35] VITALS: BP 114/71
== END 2018-09-15 15:37 | disposition home or self-care (01) ==
LOC: M ED 10:53
DX: N12 Tubulo-interstitial nephritis, not specified as acute or chronic (principal); Z87.440 Personal history of urinary (tract) infections; K21.9 Gastro-esophageal reflux disease without esophagitis; K57.92 Diverticulitis of intestine, part unspecified, without perforation or abscess without bleeding; F99 Mental disorder, not otherwise specified; Z88.0 Allergy status to penicillin; Z88.5 Allergy status to narcotic agent; Z91.040 Latex allergy status; Z79.899 Other long term (current) drug therapy
CPT/HCPCS: 76775; 80048; 80076; 81001; 83605; 83690; 84702; 85025; 87040; 87088; 87186; 96361; 96374; 96375; 99284; J0744; J1885; J2765

== ENCOUNTER 2018-10-15 13:30 | Emergency (ER) | payer OTHER ==
[~2018-10-15] VITALS: Ht 165.1 cm; Wt 81.7 kg
[~2018-10-15 13:30] MED LIST changes: +CIPR-249 PO; -CLON0.5T2 PO; +CLON0.5T8 PO; +REGL10TA6 PO
[2018-10-15] MEDS ORDERED: MORPHINE 4 MG/ML 1ML VIAL/SYRINGE (J2270) IV ONE (15:45)
[2018-10-15 16:01] LABS: BASO # 0.1 10^3/uL (0.0-0.2); BASO % 0.6 % (0.0-1.0); EOS # 0.1 10^3/uL (0.0-0.50); EOS % 0.9 % (0.0-3.0); HEMOGLOBIN 13.4 g/dl (12.0-15.5); LYMPH # 2.9 10^3/uL (1.5-4.5); LYMPH % 37.5 % (24.0-44.0); MEAN CORPUSCULAR HEMOGLOBIN 28.2 pg (27.0-33.0); MEAN CORPUSCULAR HGB CONC 32.7 g/dl (32.0-36.5); MEAN CORPUSCULAR VOLUME 86.1 fl (80.0-96.0); MONO # 0.6 10^3/uL (0.0-0.8); MONO % 7.9 % (0.0-5.0); NEUTROPHILS # 4.1 10^3/uL (1.8-7.7); NEUTROPHILS % 52.7 % (36.0-66.0); PLATELET COUNT, AUTOMATED 396 10^3/uL (150-450); RED BLOOD COUNT 4.76 10^6/uL (4.00-5.40); WHITE BLOOD COUNT 7.8 10^3/uL (4.0-10.0)
[2018-10-15] MEDS ORDERED: ISOVUE-370 76% 100ML VIAL (Q9967) As Ordered ONE (16:12)
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
[2018-10-15 17:23] VITALS: BP 140/78
== END 2018-10-15 17:20 | disposition home or self-care (01) ==
LOC: M ED 13:30
DX: S70.02XA Contusion of left hip, initial encounter (principal); W07.XXXA Fall from chair, initial encounter; Y92.9 Unspecified place or not applicable; Y99.0 Civilian activity done for income or pay; K57.92 Diverticulitis of intestine, part unspecified, without perforation or abscess without bleeding; E04.9 Nontoxic goiter, unspecified; F41.9 Anxiety disorder, unspecified; F32.9 Major depressive disorder, single episode, unspecified; Z88.1 Allergy status to other antibiotic agents; Z88.5 Allergy status to narcotic agent; Z91.040 Latex allergy status
CPT/HCPCS: 36415; 73502; 74177; 80047; 85025; 96374; 99284; J2270; Q9967

== ENCOUNTER 2018-12-16 09:47 | Outpatient (RCR) | payer OTHER, MEDICAID | END 2018-12-17 | LOC: M PT 09:47 | PROVIDERS: ATTEND Physician Assistant | DX: M25.551 Pain in right hip (principal); M54.5 Low back pain ==

== ENCOUNTER 2018-12-22 08:50 | Outpatient (RCR) | payer MEDICAID ==
[~2018-12-22 08:50] MED LIST changes: +CLON0.5T2 PO; -CLON0.5T8 PO
[2019-01-12] MEDS ORDERED: LEXA1TAB PO (23:13)
[2019-01-13] MEDS ORDERED: CLIN150C14 PO (00:04)
[2019-01-13] MEDS ORDERED: IBUP80TA PO (00:09)
[2019-01-13] MEDS ORDERED: PERI12LIQ PO (00:09)
== END 2019-01-16 ==
LOC: M PT 08:50
PROVIDERS: ATTEND Physician Assistant
DX: M54.41 Lumbago with sciatica, right side (principal)

== ENCOUNTER 2019-01-12 22:03 | Emergency (ER) | payer MEDICAID ==
[~2019-01-12] VITALS: Ht 165.1 cm; Wt 83.6 kg
[~2019-01-12 22:03] MED LIST changes: -CLON0.5T2 PO; +CLON0.5T8 PO
[2019-01-12] MEDS ORDERED: LEXA1TAB PO (23:13)
[2019-01-13] MEDS ORDERED: KETOROLAC 30 MG/ML VIAL (J1885) IM ONE
[2019-01-13] MEDS ORDERED: BENZOCAINE 20% GEL 9GM TUBE (ANBESOL MAX STRENGTH) TOP ONE
[2019-01-13] MEDS ORDERED: CLIN150C14 PO (00:04)
[2019-01-13] MEDS ORDERED: IBUP80TA PO (00:09)
[2019-01-13] MEDS ORDERED: PERI12LIQ PO (00:09)
[2019-01-13 00:17] VITALS: BP 151/75
== END 2019-01-13 00:18 | disposition home or self-care (01) ==
LOC: M ED 22:03
DX: K02.9 Dental caries, unspecified (principal); K05.00 Acute gingivitis, plaque induced; K08.89 Other specified disorders of teeth and supporting structures; Z79.899 Other long term (current) drug therapy; Z88.0 Allergy status to penicillin; Z88.5 Allergy status to narcotic agent; Z91.040 Latex allergy status
CPT/HCPCS: 96372; 99283; J1885

== ENCOUNTER → 2019-06-10 | Outpatient (CLI) | payer OTHER ==
[~2019-06-10] MED LIST changes: +CLIN150C14 PO; +CLON0.5T2 PO; -CLON0.5T8 PO; +LEXA1TAB PO; +PERI12LIQ PO; +VITA-243 PO; -VITA500T PO
== END ==
LOC: M LABSMTC 12:27
PROVIDERS: ATTEND Family Medicine
DX: Z11.59 Encounter for screening for other viral diseases (principal); Z20.828 Contact with and (suspected) exposure to other viral communicable diseases

== ENCOUNTER 2019-06-21 17:36 | Emergency (ER) | payer OTHER ==
[~2019-06-21] VITALS: Ht 165.1 cm; Wt 85.1 kg
[~2019-06-21 17:36] MED LIST changes: +RALTEGRAVIR 400 MG TAB (ISENTRESS) PO SCH; +TRUVADA 200MG/300MG TABLET PO SCH
[2019-06-21 18:36] LABS: BASO # 0.1 10^3/uL (0.0-0.2); BASO % 0.6 % (0.0-1.0); EOS # 0.1 10^3/uL (0.0-0.5); EOS % 1.2 % (0.0-3.0); HEMATOCRIT 37.2 % (36.0-47.0); HEMOGLOBIN 12.3 g/dl (12.0-15.5); LYMPH # 3.6 10^3/uL (1.5-5.0); LYMPH % 43.8 % (24.0-44.0); MEAN CORPUSCULAR HEMOGLOBIN 28.7 pg (27.0-33.0); MEAN CORPUSCULAR HGB CONC 33.1 g/dl (32.0-36.5); MEAN CORPUSCULAR VOLUME 86.9 fl (80.0-96.0); MONO # 0.5 10^3/uL (0.0-0.8); MONO % 6.3 % (0.0-5.0); NEUTROPHILS % 47.9 % (36.0-66.0); PLATELET COUNT, AUTOMATED 429 10^3/uL (150-450); RED BLOOD COUNT 4.28 10^6/uL (4.00-5.40); WHITE BLOOD COUNT 8.3 10^3/uL (4.0-10.0)
[2019-06-21] MEDS ORDERED: EXPOSURE KIT-ADULT 7 DAY SUPPLY PO ONE (19:00)
[2019-06-21] MEDS ORDERED: RALTEGRAVIR 400 MG TAB (ISENTRESS) PO ONE ×2 (19:00→20:00)
[2019-06-21] MEDS ORDERED: TRUVADA 200MG/300MG TABLET PO ONE ×2 (19:00→20:00)
[2019-06-21 19:13] LABS: ALBUMIN 3.8 GM/DL (3.2-5.2); ALT/SGPT 21 U/L (12-78); BILIRUBIN,TOTAL 0.5 MG/DL (0.2-1.0); BLOOD UREA NITROGEN 12 MG/DL (7-18); CALCIUM LEVEL 8.8 MG/DL (8.5-10.1); CARBON DIOXIDE LEVEL 27 MEQ/L (21-32); CHLORIDE LEVEL 105 MEQ/L (98-107); CREATININE FOR GFR 0.68 MG/DL (0.55-1.30); GLOMERULAR FILTRATION RATE > 60.0 (>58); GLUCOSE, FASTING 79 MG/DL (70-100); POTASSIUM SERUM 3.9 MEQ/L (3.5-5.1); SODIUM LEVEL 140 MEQ/L (136-145); TOTAL PROTEIN 7.4 GM/DL (6.4-8.2)
[2019-06-21 19:15] LABS: HCG, SERUM QUALITATIVE NEGATIVE (NEGATIVE)
[2019-06-21] MEDS ORDERED: RALT40TA PO (19:22)
[2019-06-21] MEDS ORDERED: TRUVTAB PO (19:22)
[2019-06-21 19:26] VITALS: BP 134/72
[2019-06-21 20:01] LABS: HIV 1&2 SCREEN CENTAUR NEGATIVE (NEGATIVE)
[2019-06-23 10:21] LABS: HEPATITIS B SURFACE ANTIBODY POSITIVE (POSITIVE)
[2019-06-23 10:28] LABS: HEPATITIS B SURFACE ANTIGEN NEGATIVE (NEGATIVE)
== END 2019-06-21 19:40 | disposition home or self-care (01) ==
LOC: M ED 17:36
DX: Z77.21 Contact with and (suspected) exposure to potentially hazardous body fluids (principal); S61.235A Puncture wound without foreign body of left ring finger without damage to nail, initial encounter; W46.1XXA Contact with contaminated hypodermic needle, initial encounter; Y92.238 Other place in hospital as the place of occurrence of the external cause; Y93.F9 Activity, other caregiving; Y99.0 Civilian activity done for income or pay; Z88.5 Allergy status to narcotic agent; Z88.0 Allergy status to penicillin; Z91.040 Latex allergy status; Z79.899 Other long term (current) drug therapy

== ENCOUNTER → 2019-08-01 | Outpatient (REF) | payer OTHER ==
[~2019-08-01] MED LIST changes: +RALT40TA PO; -RALTEGRAVIR 400 MG TAB (ISENTRESS) PO SCH; -TRUVADA 200MG/300MG TABLET PO SCH; +TRUVTAB PO
== END ==
LOC: M LAB REF 16:47
PROVIDERS: ATTEND Physician Assistant
DX: R31.9 Hematuria, unspecified (principal)

== ENCOUNTER 2019-12-13 22:03 | Emergency (ER) | payer OTHER ==
[~2019-12-13] VITALS: Ht 165.1 cm; Wt 85.9 kg
[~2019-12-13 22:03] MED LIST changes: -PANT20TA2 PO; +PANT20TA6 PO
[2019-12-13] MEDS ORDERED: SERT25TA21 PO (22:15)
[2019-12-13 22:52] LABS: APPEARANCE, URINE CLOUDY (CLEAR); BACTERIA, URINE AUTO NEGATIVE (NEGATIVE); BILIRUBIN, URINE AUTO 1+ (NEGATIVE); BLOOD, URINE BLOOD 1+ (NEGATIVE); COLOR, URINE YELLOW (YELLOW); GLUCOSE, URINE (UA) AUTO NEGATIVE (NEGATIVE); KETONE, URINE AUTO TRACE mg/dL (NEGATIVE); LEUKOCYTE ESTERASE, URINE AUTO NEGATIVE (NEGATIVE); MUCUS, URINE MODERATE (NEGATIVE); NITRITE, URINE AUTO NEGATIVE (NEGATIVE); PROTEIN, URINE AUTO 1+ mg/dL (NEGATIVE); RBC, URINE AUTO 37 /HPF (0-3); SPECIFIC GRAVITY URINE AUTO 1.032 (1.002-1.035); SQUAMOUS EPITHELIAL CELL UR AU 11 /HPF (0-6); WBC, URINE AUTO 2 /HPF (0-3)
[2019-12-14 00:57] LABS: BASO # 0.1 10^3/uL (0.0-0.2); BASO % 0.7 % (0.0-1.0); EOS # 0.1 10^3/uL (0.0-0.5); EOS % 1.7 % (0.0-3.0); HEMATOCRIT 35.4 % (36.0-47.0); HEMOGLOBIN 11.5 g/dl (12.0-15.5); LYMPH # 3.7 10^3/uL (1.5-5.0); LYMPH % 44.8 % (24.0-44.0); MEAN CORPUSCULAR HEMOGLOBIN 28.2 pg (27.0-33.0); MEAN CORPUSCULAR HGB CONC 32.5 g/dl (32.0-36.5); MEAN CORPUSCULAR VOLUME 86.8 fl (80.0-96.0); MONO # 0.5 10^3/uL (0.0-0.8); MONO % 6.4 % (0.0-5.0); NEUTROPHILS # 3.8 10^3/uL (1.5-8.5); PLATELET COUNT, AUTOMATED 434 10^3/uL (150-450); RED BLOOD COUNT 4.08 10^6/uL (4.00-5.40); WHITE BLOOD COUNT 8.2 10^3/uL (4.0-10.0)
[2019-12-14 01:28] LABS: HCG, SERUM QUALITATIVE NEGATIVE (NEGATIVE)
[2019-12-14 01:35] LABS: BLOOD UREA NITROGEN 6 MG/DL (7-18); CALCIUM LEVEL 8.3 MG/DL (8.5-10.1); CARBON DIOXIDE LEVEL 27 MEQ/L (21-32); CHLORIDE LEVEL 107 MEQ/L (98-107); GLOMERULAR FILTRATION RATE > 60.0 (>58); GLUCOSE, FASTING 97 MG/DL (70-100); POTASSIUM SERUM 3.6 MEQ/L (3.5-5.1); SODIUM LEVEL 141 MEQ/L (136-145)
[2019-12-14 01:39] LABS: ALBUMIN 3.4 GM/DL (3.2-5.2); ALT/SGPT 19 U/L (12-78); BILIRUBIN,DIRECT < 0.1 MG/DL (0.0-0.2); BILIRUBIN,TOTAL 0.4 MG/DL (0.2-1.0); LIPASE 147 U/L (73-393); TOTAL PROTEIN 6.7 GM/DL (6.4-8.2)
--- NOTE | 2019-12-14 02:14 | REPVR ---
PROCEDURE INFORMATION: Exam: CT Abdomen And Pelvis Without Contrast Exam date and time: 12/14/2019 1:55 AM Age: 43 years old Clinical indication: Abdominal pain; Flank; Right; Additional info: R flank pain TECHNIQUE: Imaging protocol: Computed tomography of the abdomen and pelvis without contrast. Radiation optimization: All CT scans at this facility use at least one of these dose optimization techniques: automated exposure control; mA and/or kV adjustment per patient size (includes targeted exams where dose is matched to clinical indication); or iterative reconstruction. COMPARISON: CT ABD/PEL W/IV CONTRAST ONLY 10/15/2018 4:02 PM FINDINGS: Lungs: No suspicious mass or airspace process in the visualized lung bases. Liver: Noncontrast liver shows no obvious lesion. Gallbladder and bile ducts: Gallbladder is present and shows no evidence of gallstone. Pancreas: Noncontrast pancreas shows no obvious mass or adjacent fluid. Spleen: Noncontrast spleen shows no obvious focal deformity. Adrenal glands: Adrenal glands are normal in appearance. Kidneys and ureters: Kidneys show no stone or hydronephrosis. Stomach and bowel: No evidence of small bowel obstruction. Appendix: Normal caliber appendix is identified, with no adjacent inflammation. Intraperitoneal space: No pneumoperitoneum. Vasculature: No aortic aneurysm. Lymph nodes: No enlarged lymph nodes. Urinary bladder: Urinary bladder appears normal. Reproductive: Bilateral tubal occlusion devices are present. Possible 2.4 cm left ovarian cyst. Bones/joints: Bony structures show no acute fracture or destructive process. Limitations: Limited evaluation without enteric or IV contrast. IMPRESSION: 1. No evidence of renal stone or obstruction and no evidence of acute appendicitis. No convincing explanation for right flank pain. 2. Possible 2.4 cm left ovarian cyst Electronically signed by: Paulino Eddy On 12/14/2019 02:14:14 AM
[2019-12-14 02:34] VITALS: BP 122/60
== END 2019-12-14 02:36 | disposition home or self-care (01) ==
LOC: M ED 22:03
DX: R10.9 Unspecified abdominal pain (principal); R31.9 Hematuria, unspecified; Z88.0 Allergy status to penicillin; Z91.040 Latex allergy status; Z88.5 Allergy status to narcotic agent

== ENCOUNTER → 2020-01-25 | Outpatient (CLI) | payer SELFPAY ==
[~2020-01-25] MED LIST changes: +SERT25TA21 PO
== END ==
LOC: M LABSMTC 14:44
PROVIDERS: ATTEND Pediatrics
DX: Z11.59 Encounter for screening for other viral diseases (principal)

== ENCOUNTER 2020-06-05 12:54 | Emergency (ER) | payer OTHER, SELFPAY ==
[~2020-06-05] VITALS: Ht 165.1 cm; Wt 86.9 kg
[~2020-06-05 12:54] MED LIST changes: +BUPR150T12 PO; -BUPR150T3 PO; -CLIN150C14 PO; +CLIN150C15 PO
[2020-06-05] MEDS ORDERED: OMEP-218 (13:03)
--- NOTE | 2020-06-05 13:28 | REP ---
INDICATION: R/O CVA. COMPARISON: None. TECHNIQUE: Axial CT images with multiplanar reformations. FINDINGS: No acute bleed or acute large vessel territorial infarct. Ventricles, cisterns and sulci are within normal limits. No mass effect or midline shift. No abnormal fluid collections. Paranasal sinuses and mastoid air cells are clear IMPRESSION: No acute findings. <Electronically signed by Dawood Villalta > 06/05/20 [id number]
[2020-06-05 17:12] LABS: BASO # 0.1 10^3/uL (0.0-0.2); BASO % 0.6 % (0.0-1.0); EOS # 0.1 10^3/uL (0.0-0.5); EOS % 1.4 % (0.0-3.0); HEMATOCRIT 38.3 % (36.0-47.0); HEMOGLOBIN 12.4 g/dl (12.0-15.5); LYMPH # 3.2 10^3/uL (1.5-5.0); LYMPH % 39.8 % (24.0-44.0); MEAN CORPUSCULAR HEMOGLOBIN 28.1 pg (27.0-33.0); MEAN CORPUSCULAR HGB CONC 32.4 g/dl (32.0-36.5); MEAN CORPUSCULAR VOLUME 86.8 fl (80.0-96.0); MONO # 0.7 10^3/uL (0.0-0.8); MONO % 8.3 % (2.0-8.0); NEUTROPHILS # 3.9 10^3/uL (1.5-8.5); NEUTROPHILS % 49.5 % (36.0-66.0); PLATELET COUNT, AUTOMATED 394 10^3/uL (150-450); RED BLOOD COUNT 4.41 10^6/uL (4.00-5.40); WHITE BLOOD COUNT 7.9 10^3/uL (4.0-10.0)
[2020-06-05 17:22] LABS: BLOOD UREA NITROGEN 8 MG/DL (7-18); C REACTIVE PROTEIN QUANTITATIV 0.68 MG/DL (0.00-0.30); CALCIUM LEVEL 9.4 MG/DL (8.5-10.1); CARBON DIOXIDE LEVEL 25 MEQ/L (21-32); CHLORIDE LEVEL 106 MEQ/L (98-107); CREATININE FOR GFR 0.62 MG/DL (0.55-1.30); FREE T4 0.78 NG/DL (0.76-1.46); GLOMERULAR FILTRATION RATE > 60.0 (>58); GLUCOSE, FASTING 77 MG/DL (70-100); POTASSIUM SERUM 4.7 MEQ/L (3.5-5.1); RHEUMATOID FACTOR QUANT < 10.0 IU/ML (<15.0); SODIUM LEVEL 138 MEQ/L (136-145)
[2020-06-05 17:42] LABS: ERYTHROCYTE SEDIMENTATION RATE 22 mm/hr (0-20)
[2020-06-05 17:53] VITALS: BP 137/82
[2020-06-07 19:07] LABS: ANA (HEP2) Negative (.)
[2020-06-08 16:11] LABS: Lyme Disease IgG Ab 18 kDa Ban Absent (.); Lyme Disease IgG Ab 23 kDa Ban Absent (.); Lyme Disease IgG Ab 28 kDa Ban Absent (.); Lyme Disease IgG Ab 30 kDa Ban Absent (.); Lyme Disease IgG Ab 39 kDa Ban Absent (.); Lyme Disease IgG Ab 41 kDa Ban Absent (.); Lyme Disease IgG Ab 45 kDa Ban Absent (.); Lyme Disease IgG Ab 58 kDa Ban Absent (.); Lyme Disease IgG Ab 66 kDa Ban Absent (.); Lyme Disease IgG Ab 93 kDa Ban Absent (.); Lyme Disease IgG West Blot Int Negative (.); Lyme Disease IgG/IgM Antibodie <0.91 ISR (0.00-0.90); Lyme Disease IgM Ab 23 kDa Ban Absent (.); Lyme Disease IgM Ab 39 kDa Ban Absent (.); Lyme Disease IgM Ab 41 kDa Ban Absent (.); Lyme Disease IgM Ab Quantitati 1.19 index (0.00-0.79); Lyme Disease IgM West Blot Int Negative (.)
== END 2020-06-05 18:38 | disposition home or self-care (01) ==
LOC: M ED 12:54
DX: R51.9 Headache, unspecified (principal); M25.50 Pain in unspecified joint; M79.10 Myalgia, unspecified site; R94.6 Abnormal results of thyroid function studies; H93.91 Unspecified disorder of right ear; F41.9 Anxiety disorder, unspecified; F32.9 Major depressive disorder, single episode, unspecified; K21.9 Gastro-esophageal reflux disease without esophagitis; E78.5 Hyperlipidemia, unspecified; E04.9 Nontoxic goiter, unspecified; Z79.899 Other long term (current) drug therapy; Z88.0 Allergy status to penicillin; Z88.5 Allergy status to narcotic agent; Z91.040 Latex allergy status

== ENCOUNTER 2020-07-10 19:41 | Emergency (ER) | payer OTHER ==
[~2020-07-10] VITALS: Ht 165.1 cm; Wt 86.4 kg
[~2020-07-10 19:41] MED LIST changes: +EMTR1TAB16 PO; +OMEP-218; -TRUVTAB PO
[2020-07-10] MEDS ORDERED: SING10TA32 PO (19:48)
[2020-07-10] MEDS ORDERED: VITA500045 PO (19:48)
[2020-07-10] MEDS ORDERED: SERT-141 PO (19:48)
[2020-07-10 20:15] LABS: BASO # 0.1 10^3/uL (0.0-0.2); BASO % 0.9 % (0.0-1.0); EOS # 0.2 10^3/uL (0.0-0.5); EOS % 2.7 % (0.0-3.0); HEMATOCRIT 34.7 % (36.0-47.0); HEMOGLOBIN 11.5 g/dl (12.0-15.5); LYMPH # 3.9 10^3/uL (1.5-5.0); MEAN CORPUSCULAR HEMOGLOBIN 28.5 pg (27.0-33.0); MEAN CORPUSCULAR HGB CONC 33.1 g/dl (32.0-36.5); MEAN CORPUSCULAR VOLUME 86.1 fl (80.0-96.0); MONO # 0.5 10^3/uL (0.0-0.8); MONO % 6.3 % (2.0-8.0); NEUTROPHILS # 3.4 10^3/uL (1.5-8.5); NEUTROPHILS % 41.9 % (36.0-66.0); PLATELET COUNT, AUTOMATED 427 10^3/uL (150-450); RED BLOOD COUNT 4.03 10^6/uL (4.00-5.40); WHITE BLOOD COUNT 8.2 10^3/uL (4.0-10.0)
--- NOTE | 2020-07-10 20:26 | ECGEPIP ---
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
[2020-07-10] MEDS ORDERED: GI COCKTAIL 50ML BTL(HYOSCYAMINE/MAALOX/LIDOCAINE VISCOUS)(1:3:1) PO ONE (20:40)
[2020-07-10 20:52] LABS: ALBUMIN 3.5 GM/DL (3.2-5.2); ALT/SGPT 23 U/L (12-78); BILIRUBIN,DIRECT < 0.1 MG/DL (0.0-0.2); BILIRUBIN,TOTAL 0.4 MG/DL (0.2-1.0); BLOOD UREA NITROGEN 7 MG/DL (7-18); CALCIUM LEVEL 8.6 MG/DL (8.5-10.1); CARBON DIOXIDE LEVEL 26 MEQ/L (21-32); CHLORIDE LEVEL 108 MEQ/L (98-107); CK-MB VALUE MASS < 1.0 NG/ML (<3.6); CPK CREATINE PHOSPHOKINASE 172 U/L (26-192); CREATININE FOR GFR 0.69 MG/DL (0.55-1.30); GLOMERULAR FILTRATION RATE > 60.0 (>58); GLUCOSE, FASTING 76 MG/DL (70-100); LIPASE 88 U/L (73-393); MB/CK RELATIVE INDEX 0.58 (< OR =4); POTASSIUM SERUM 3.6 MEQ/L (3.5-5.1); SODIUM LEVEL 139 MEQ/L (136-145); TOTAL PROTEIN 7.4 GM/DL (6.4-8.2); TROPONIN I < 0.02 NG/ML (< 0.10)
--- NOTE | 2020-07-10 20:52 | REPVR ---
PROCEDURE INFORMATION: Exam: XR Chest Exam date and time: 07/10/2020 8:27 PM Age: 44 years old Clinical indication: Pain; Other: Not specified; Additional info: Chest pain TECHNIQUE: Imaging protocol: XR of the chest. Views: 1 view. COMPARISON: CR PORTABLE CHEST X-RAY 01/05/2018 12:31 PM FINDINGS: Lungs: Unremarkable. No consolidation. Pleural spaces: Unremarkable. No pleural effusion. No pneumothorax. Heart/Mediastinum: Unremarkable. No cardiomegaly. Bones/joints: Unremarkable. IMPRESSION: No acute findings. Electronically signed by: Coleman Vela On 07/10/2020 20:51:40 PM
[2020-07-10] MEDS ORDERED: ASPIRIN 325 MG TAB PO ONE (21:15)
[2020-07-10] MEDS ORDERED: ASPI81TA26 PO (21:20)
[2020-07-10 21:31] VITALS: BP 118/56
== END 2020-07-10 21:35 | disposition home or self-care (01) ==
LOC: M ED 19:41
DX: R07.89 Other chest pain (principal); K21.9 Gastro-esophageal reflux disease without esophagitis; Z79.899 Other long term (current) drug therapy; Z79.82 Long term (current) use of aspirin

== ENCOUNTER 2020-10-04 09:36 | Emergency (ER) | payer OTHER ==
[~2020-10-04] VITALS: Ht 165.1 cm; Wt 86.1 kg
[~2020-10-04 09:36] MED LIST changes: +ASPI81TA26 PO; -CLIN150C15 PO; +CLIN150C17 PO; +SING10TA32 PO; +VITA500045 PO
[2020-10-04] MEDS ORDERED: CLEO300C2 PO (11:18)
[2020-10-04 11:30] VITALS: BP 145/82
== END 2020-10-04 11:53 | disposition home or self-care (01) ==
LOC: M ED 09:36
DX: K08.89 Other specified disorders of teeth and supporting structures (principal); J01.90 Acute sinusitis, unspecified; Z88.1 Allergy status to other antibiotic agents; Z88.6 Allergy status to analgesic agent; Z91.040 Latex allergy status

== ENCOUNTER 2020-10-05 20:18 | Emergency (ER) | payer OTHER ==
[~2020-10-05] VITALS: Ht 165.1 cm; Wt 86.2 kg
[2020-10-05 20:19] VITALS: BP 174/83
== END 2020-10-05 22:42 | disposition left against medical advice (07) ==
LOC: M ED 20:18
DX: Z53.21 Procedure and treatment not carried out due to patient leaving prior to being seen by health care provider (principal)

== ENCOUNTER 2021-01-19 13:43 | Emergency (ER) | payer OTHER ==
[~2021-01-19] VITALS: Ht 165.1 cm; Wt 84.5 kg
--- OUTSIDE RECORDS SUMMARY | 2021-01-19 13:50 | CCD ---
Author Author [facility] Organization [facility] Address Unknown Phone Unavailable Care Team Providers Care Guest Service Team Leader Name Role Phone Chantelle Loomis Unavailable PROBLEMS Type Condition ICD9-CM Code HHE63-VP Code Onset Dates Condition S tatus W/U Status Risk SNOMED Code Notes Problem Gastroesophageal reflux disease without esophagitis K21.9 Active confirmed 089045477 Problem Arthritis M19.90 Active confirmed 4365296 Problem History of thyroid nodule Z86.39 Active confirmed 540028822 Problem Thyroid nodule E04.1 Active confirmed 36738 [id number] Problem Depression with anxiety F41.8 Active confirmed 17944630 Problem Essential hypertension I10 Active confirmed 90675528 Problem Mixed hyperlipidemia E78.2 Active confirmed 758140325 Problem Generalized anxiety disorder F41.1 Active confirme d 84933681 Problem Severe episode of recurrent major depressive disorder, without psychotic features F33.2 Active confirmed 67112251 Problem History of hyperglycemia Z86.39 Active confirmed 162953359 ALLERGIES Allergen (clinical drug ingredient) Drug/Non Drug Allergy do cumented on EMR Reaction Allergy Type Onset Date Status Wellbutrin suicidal ideation Drug Allergy Activ e Vicodin nausea and vomiting Drug Allergy Act adán amoxicillin Amoxicillin([facility][NOTE 3] Code:[address]-24) nausea and v omiting Drug Allergy Active Latex latex rash Non Drug Allergy Active ENCOUNTERS from 1975 to 2021-01-03 Encounter Location Date Provider Diagnosis [address] [id number] Dec, Chantelle Ebonie Essential hypertension I10 ; Other chest pain R07.89 ; Mixed hyperlipidemia E78.2 ; Thyroid nodule E04.1 ; History of hyperglycemia Z86.39 and Edema of both lower extremities R60.0 IMMUNIZATIONS Vaccine Route Administration Date Status Influenza preservative free Unknown Dec 31, 2017 Admi nistered SOCIAL HISTORY Tobacco Use: Social History Observation Description Date Details (start date - stop date) Never Smoker Sex Assigned At : Social History Observation Description Sex Assigned At Female Alcohol Screen Question Answer Notes Did you have a drink containing alcohol in the past year? No Points 0 Interpretation Negative Tobacco Use/Smoking Question Answer Notes Are you a never smoker REASON FOR REFERRAL No Information VITAL SIGNS Height 68 in Dec, Weight 190.4 lbs Dec, BMI 28.95 kg/m2 Dec, Heart Rate 77 /min Dec, Respiratory Rate 16 /min Dec, Oximetry 97 % Dec, Blood pressure systolic 144 mmHg Dec, Blood pressure diastolic 90 mmHg Dec, MEDICATIONS Medication SIG (Take, Route, Frequency, Duration) Notes Start Da te End Date Status Apple Cider Vinegar 500 MG as directed Orally Active Multi For Her - 1 tablet Orally once a day Active Lisinopril 10 MG 1 tablet Orally Once a day for 30 day(s) Dec, Active Zoloft 100 MG 1 tablet Orally Once a day for 90 day(s) June, Active Loratadine 10 MG 1 tablet Orally Once a day for 90 day(s) Active Vitamin C 500 MG 1 tablet Orally Once a day Active Omeprazole 20 MG 1 capsule 30 minutes before morning meal Orally Once a day for 90 days Active Sertraline HCl 25 MG with 100 Orally Once a day for 90 days Aug, Active Cranberry 1000 MG as directed Orally Active Green Tea 100 MG as directed Orally Active PROCEDURES from 1975 to 2021-01-03 Procedure Date Ordered Result Body Site EKG 2020-12-28 N/A RESULTS No Results REASON FOR VISIT Follow Up MEDICAL (GENERAL) HISTORY Type Description Date Medical History depression Medical History GERD without esophagitis Medical History seasonal allergies Medical History iron deficiency Medical History HTN Medical History C/O dental issues ,no dentist listed Medical History thyroid DO Medical History high cholesterol Medical History frequent UTIs Medical History vision corrected with glasses Medical History C/O fatigue Medical History 2 ankle repair Medical History tubal Medical History knee unspecified which knee Medical History 2 [facility] admissions Medical History 4 children Medical History weight gain of more than 10 lbs in the l ast three months Surgical History left ankle surgery x2 1998 Surgical History right knee surgery Surgical History tubal ligation Surgical History lumpectomy-right breast Hospitalization History surgical Hospitalization History hospitalizations for overdos e on muscle relaxers and tylenol and klonipin 10/2016 Goals Section No Information Health Concerns No Information MEDICAL EQUIPMENT No Information MENTAL STATUS No Information FUNCTIONAL STATUS No Information ASSESSMENTS Encounter Date Diagnosis Assessment Notes Treatment Notes Treatm ent Clinical Notes Dec, Essential hypertension (ICD-10 - I10) Today, patient's blood pressure in the clinic is at 144/90 mmHg. Blood pressures are elevated at home too. Will start pt on lisinopril 10 mg and have her follow up in 3 weeks for blood pressure follow up. Encourage patient to consume healthy low salt and low carb diet and exercise. Encourage pt to monitor blood pressure at home. Encouraged pt to go to ER if pt begins to notice chest pain, shortness of breath, left arm pain, jaw pain, nausea, or vomiting. Pt was agreeable. Things that you can do at home to improve and maintain a healthy blood pressure: - Decrease salt intake - Increase water intake - Decrease alcohol and caffeine intake - Increase exercise - Weight loss. Dec, Other chest pain (ICD-10 - R07.89) Pt with complaints of shortness of breath, chest pain, and palpitations with exertion. EKG was done in the office and showed normal sinus rhythm. No ST elevations. Pending final read by cardiology .Labs ordered to further evaluate as last thyroid labs were abnormal. Will start pt on lisinopril today for hypertension. Discussed with pt that if symptoms do not improve by next appointment then we will consider referral to cardiology. Will continue to monitor and have the pt return in 3 weeks for follow up. As patient showed up late to her appointment and given severity of smyptoms we will discuss all other concerns at the next visit. Dec, Mixed hyperlipidemia (ICD-10 - E78.2) Labs ordered, will notify with the results once they are available. Encourage healthy diet and exercise. Will continue to monitor. Things that you can do at home to help control cholesterol: - Decrease unhealthy fats (spencer, butter, meat) - Increase activity - Lose weight. Dec, Thyroid nodule (ICD-10 - E04.1) Labs ordered, will notify with the results once they are available. Will determine if treatment is necessary based off results. Will continue to monitor. Dec, History of hyperglycemia (ICD-10 - Z86.39) Screening A1C ordered. Will notify with the results once they are available. Dec, Edema of both lower extremities (ICD-10 - R60.0) Pt with edema iin both lower extremities. Recommended pt with elevate her legs at the end of day, limit her salt intake, and wear compression stockings. Will continue to monitor. Dec, Other All questions and concerns addressed, patient understanding and agreeable to plan. Patient encouraged to follow up at the clinic for any additional or new questions or concerns. Any Rey, scribing the following service on behalf of ROSEANAN Bartholomew on 12/28/2020 Labs ordered, will notify with the results once they are available. Pt denies following up with specialist. Time spent includes face to face time with patient and review of any pertinent laboratory results, and diagnostic imaging. Time spent: 30 minutes PLAN OF TREATMENT Medication Medication Name Sig Start Date Stop Date Omeprazole 20 MG 1 capsule 30 minutes before morning meal Orally Once a day for 90 days Sertraline HCl 25 MG with 100 Orally Once a day for 90 days 2020 Zoloft 100 MG 1 tablet Orally Once a day for 90 day(s) June, Loratadine 10 MG 1 tablet Orally Once a day for 90 day(s) Lisinopril 10 MG 1 tablet Orally Once a day for 30 day(s) Dec Treatment Notes Assessment Notes Clinical Notes Essential hypertension Today, patient's blood press ure in the clinic is at 144/90 mmHg. Blood pressures are elevated at home too. Will start pt on lisinopril 10 mg and have her follow up in 3 weeks for blood pressure follow up. Encourage patient to consume healthy low salt and low carb diet and exercise. Encourage pt to monitor blood pressure at home. Encouraged pt to go to ER if pt begins to notice chest pain, shortness of breath, left arm pain, jaw pain, nausea, or vomiting. Pt was agreeable.Things that you can do at home to improve and maintain a healthy blood pressure: - Decrease salt intake - Increase water intake - Decrease alcohol and caffeine intake - Increase exercise - Weight loss. Other chest pain Pt with complaints of shortn ess of breath, chest pain, and palpitations with exertion. EKG was done in the office and showed normal sinus rhythm. No ST elevations. Pending final read by cardiology .Labs ordered to further evaluate as last thyroid labs were abnormal. Will start pt on lisinopril today for hypertension. Discussed with pt that if symptoms do not improve by next appointment then we will consider referral to cardiology. Will continue to monitor and have the pt return in 3 weeks for follow up. As patient showed up late to her appointment and given severity of smyptoms we will discuss all other concerns at the next visit. Mixed hyperlipidemia Labs ordered, will notify wi th the results once they are available. Encourage healthy diet and exercise. Will continue to monitor.Things that you can do at home to help control cholesterol: - Decrease unhealthy fats (spencer, butter, meat) - Increase activity - Lose weight. Thyroid nodule Labs ordered, will notify wi th the results once they are available. Will determine if treatment is necessary based off results. Will continue to monitor. History of hyperglycemia Screening A1C ordered. Will notify with the results once they are available. Edema of both lower extremities Pt with edema iin both lower extremities. Recommended pt with elevate her legs at the end of day, limit her salt intake, and wear compression stockings. Will continue to monitor. Pending Tests Test Name Order Date COMPLETE METABOLIC PROLFILE 2020-12-28 TSH 2020-12-28 LIPID PROFILE 2020-12-28 FREE T4 2020-12-28 CBC 2020-12-28 HGBA1C 2020-12-28 Next Appt Details 3 Weeks Reason:f/u on bp Provider Name:Chantelle Ebonie, 2 03:40:00 PM, [address] [place] [address], [id number], Follow Up:3 Weeksf/u on bp Insurance Providers Payer Name Payer Address Payer Phone Insured Name Patient Relati onship to Insured Coverage Start Date Coverage End Date FORMERLY [facility] [employer] [address] [facility] [id number] Madelaine Brown self
--- OUTSIDE RECORDS SUMMARY | 2021-01-19 13:51 | CCD ---
Author Author [facility] Organization [facility] Address Unknown Phone Unavailable Support Name Relationship Address Phone [facility] Next Of Kin [address] [place] [address] Amarilis Parson Next Of Kin [address] [place] [address] KEY BROWN Next Of Kin [phone] [place] [address] NONE, NONE Next Of Kin Unknown SISTERSJOS Next Of Kin [address] [place] [address] [facility] Next Of Kin [address] [place] [address] [facility] Next Of Kin [address] [place] [address] Pro BAUTISTA Next Of Kin [address] [place] [address] [employer] Next [place] Kin [place] [address] [place] [address] Unavailable [employer] Next Of Kin [address] [address] UNEMPLOYED Next Of Kin [address] [place] [address] [employer] Next Of Kin [phone] [address] UE Next Of Kin Unknown Unavailable [facility] Next Of Kin [address] [place] [address] BON BAUTISTA Next Of Kin [address] [place] [address] Key Brown ECON [address] [facility] [address] [place] [address] Juan Mcguire ECON [address] [place] [address] Unavailable Key Brown ECON [address] [address] [facility] [address] Unavailable Care Team Providers Care Sales Estimator Name Role Phone Lorenza Tejada MD Unavailable Lorenza Tejada MD Unavailable Lorenza Tejada MD Unavailable Hermila Tena Unavailable Hermila Tena Unavailable Spies PA, David PA Unavailable Unavailable Spies PA, David PA Unavailable Unavailable Spies PA, David PA Unavailable Unavailable Spies PA, David PA Unavailable [facility] Unavailable Unavailable ISAIAS TEJADA MD Unavailable Unavailable ISAIAS TEJADA MD Unavailable Unavailable ISAIAS TEJADA MD Unavailable Unavailable ISAIAS TEJADA MD Unavailable Unavailable Feola, T Sasha PA Unavailable Unavailable Feola, T Sasha PA Unavailable Unavailable Feola, T Sasha PA Unavailable Unavailable Feola, T Sasha PA Unavailable Unavailable Feola, T Sasha PA Unavailable Unavailable Feola, T Sasha PA Unavailable Unavailable Feola, T Sasha PA Unavailable Unavailable Feola, T Sasha PA Unavailable Unavailable Feola, T Sasha PA Unavailable Unavailable Feola, T Sasha PA Unavailable Unavailable Feola, T Sasha PA Unavailable Unavailable Feola, T Sasha PA Unavailable Unavailable Feola, T Sasha PA Unavailable Unavailable Feola, T Sasha PA Unavailable Unavailable Feola, T Sasha PA Unavailable Unavailable Feola, T Sasha PA Unavailable Unavailable Feola, T Sasha PA Unavailable Unavailable Feola, T Sasha PA Unavailable Unavailable Feola, T Sasha PA Unavailable Unavailable Feola, T Sasha PA Unavailable Unavailable Feola, T Sasha PA Unavailable Unavailable Feola, T Sasha PA Unavailable Unavailable Feola, T Sasha PA Unavailable Unavailable Feola, T Sasha PA Unavailable Unavailable Feola, T Sasha PA Unavailable Unavailable Feola, T Sasha PA Unavailable Unavailable Feola, T Sasha PA Unavailable Unavailable Feola, T Sasha PA Unavailable Unavailable Feola, T Sasha PA Unavailable Unavailable Feola, T Sasha PA Unavailable Unavailable Feola, T Sasha PA Unavailable Unavailable Feola, T Sasha PA Unavailable Unavailable Feola, T Sasha PA Unavailable Unavailable Feola, T Sasha PA Unavailable Unavailable Feola, T Sasha PA Unavailable Unavailable Feola, T Sasha PA Unavailable Unavailable Feola, T Sasha PA Unavailable Unavailable Feola, T Sasha PA Unavailable Unavailable Feola, T Sasha PA Unavailable Unavailable Feola, T Sasha PA Unavailable Unavailable Feola, T Sasha PA Unavailable Unavailable THOMPSON, RONN BAR RPA-C Unavailable Unavailable THOMPSON, RONN BAR RPA-C Unavailable Unavailable THOMPSON, RONN BAR RPA-C Unavailable Unavailable THOMPSON, RONN BAR RPA-C Unavailable Unavailable THOMPSON, RONN BAR RPA-C Unavailable Unavailable THOMPSON, RONN BAR RPA-C Unavailable Unavailable THOMPSON, RONN BAR RPA-C Unavailable Unavailable THOMPSON, RONN BAR RPA-C Unavailable Unavailable THOMPSON, RONN BAR RPA-C Unavailable Unavailable THOMPSON, RONN BAR RPA-C Unavailable Unavailable THOMPSON, RONN BAR RPA-C Unavailable Unavailable THOMPSON, RONN BAR RPA-C Unavailable Unavailable THOMPSON, RONN BAR RPA-C Unavailable Unavailable THOMPSON, RONN BAR RPA-C Unavailable Unavailable THOMPSON, RONN BAR RPA-C Unavailable Unavailable THOMPSON, RONN BAR RPA-C Unavailable Unavailable THOMPSON, RONN BAR RPA-C Unavailable Unavailable THOMPSON, RONN BAR RPA-C Unavailable Unavailable THOMPSON, RONN BAR RPA-C Unavailable Unavailable THOMPSON, RONN BAR RPA-C Unavailable Unavailable THOMPSON, RONN BAR RPA-C Unavailable Unavailable THOMPSON, RONN BAR RPA-C Unavailable Unavailable THOMPSON, RONN BAR RPA-C Unavailable Unavailable THOMPSON, RONN BAR RPA-C Unavailable Unavailable THOMPSON, RONN BAR RPA-C Unavailable Unavailable THOMPSON, RONN BAR RPA-C Unavailable Unavailable THOMPSON, RONN BAR RPA-C Unavailable Unavailable THOMPSON, RONN BAR RPA-C Unavailable Unavailable THOMPSON, RONN BAR RPA-C Unavailable Unavailable THOMPSON, RONN BAR RPA-C Unavailable Unavailable THOMPSON, RONN BAR RPA-C Unavailable Unavailable THOMPSON, RONN BAR RPA-C Unavailable Unavailable THOMPSON, RONN BAR RPA-C Unavailable Unavailable THOMPSON, RONN BAR RPA-C Unavailable Unavailable THOMPSON, RONN BAR RPA-C Unavailable Unavailable THOMPSON, RONN BAR RPA-C Unavailable Unavailable THOMPSON, RONN BAR RPA-C Unavailable Unavailable THOMPSON, RONN BAR RPA-C Unavailable Unavailable THOMPSON, RONN BAR RPA-C Unavailable Unavailable THOMPSON, RONN BAR RPA-C Unavailable Unavailable THOMPSON, RONN BAR RPA-C Unavailable Unavailable THOMPSON, RONN BAR RPA-C Unavailable Unavailable THOMPSON, RONN BAR RPA-C Unavailable Unavailable Ebonie, M Chantelle PA-C Unavailable Unavailable Ebonie, M Chantelle PA-C Unavailable Unavailable Ebonie, M Chantelle PA-C Unavailable Unavailable Ebonie, M Chantelle PA-C Unavailable Unavailable Ebonie, M Chantelle PA-C Unavailable Unavailable Ebonie, M Chantelle PA-C Unavailable Unavailable Ebonie, M Chantelle PA-C Unavailable Unavailable Ebonie, M Chantelle PA-C Unavailable Unavailable Ebonie, M Chantelle PA-C Unavailable Unavailable Ebonie, M Chantelle PA-C Unavailable Unavailable Ebonie, M Chantelle PA-C Unavailable Unavailable Ebonie, M Chantelle PA-C Unavailable Unavailable Ebonie, M Chantelle PA-C Unavailable Unavailable Eboine, M Chantelle PA-C Unavailable Unavailable Ebonie, M Chantelle PA-C Unavailable Unavailable Ebonie, M Chantelle PA-C Unavailable Unavailable Ebonie, M Chantelle PA-C Unavailable Unavailable Ebonie, M Chantelle PA-C Unavailable Unavailable Ebonie, M Chantelle PA-C Unavailable Unavailable Ebonie, M Chantelle PA-C Unavailable Unavailable Ebonie, M Chantelle PA-C Unavailable Unavailable Ebonie, M Chantelle PA-C Unavailable Unavailable Ebonie, M Chantelle PA-C Unavailable Unavailable Ebonie, M Chantelle PA-C Unavailable Unavailable Ebonie, M Chantelle PA-C Unavailable Unavailable Ebonie, M Chantelle PA-C Unavailable Unavailable Ebonie, M Chantelle PA-C Unavailable Unavailable Ebonie, M Chantelle PA-C Unavailable Unavailable Ebonie, M Chantelle PA-C Unavailable Unavailable Ebonie, M Chantelle PA-C Unavailable Unavailable Ebonie, M Chantelle PA-C Unavailable Unavailable Ebonie, M Chantelle PA-C Unavailable Unavailable Ebonie, M Chantelle PA-C Unavailable Unavailable Ebonie, M Chantelle PA-C Unavailable Unavailable Ebonie, M Chantelle PA-C Unavailable Unavailable Ebonie, M Chantelle PA-C Unavailable Unavailable Ebonie, M Chantelle PA-C Unavailable Unavailable Ebonie, M Chantelle PA-C Unavailable Unavailable James Casey Unavailable [phone] James Casey Unavailable [phone] James Casey Unavailable [phone] James Casey Unavailable [phone] James Casey Unavailable [phone] James Casey Unavailable [phone] Holtman, T Pedro DO Unavailable Unavailable Holtman, T Pedro DO Unavailable Unavailable Holtman, T Pedro DO Unavailable Unavailable GEORGE, DIEUDONNE KATE PA-C Unavailable Unavailable GEORGE, DIEUDONNE KATE PA-C Unavailable Unavailable GEORGE, DIEUDONNE KATE PA-C Unavailable Unavailable GEORGE, DIEUDONNE KATE PA-C Unavailable Unavailable GEORGE, DIEUDONNE KATE PA-C Unavailable Unavailable GEORGE, DIEUDONNE KATE PA-C Unavailable Unavailable GEORGE, DIEUDONNE KATE PA-C Unavailable Unavailable GEORGE, DIEUDONNE KATE PA-C Unavailable Unavailable GEORGE, DIEUDONNE KATE PA-C Unavailable Unavailable GEORGE, DIEUDONNE KATE PA-C Unavailable Unavailable Re-disclosure Warning The records that you are about to access may contain information from federally-assisted alcohol or drug abuse programs. If such information is present, then the following federally mandated warning applies: This information has been disclosed to you from records protected by federal confidentiality rules (42 CFR part 2). The federal rules prohibit you from making any further disclosure of this information unless further disclosure is expressly permitted by the written consent of the person to whom it pertains or as otherwise permitted by 42 CFR part 2. A general authorization for the release of medical or other information is NOT sufficient for this purpose. The Federal rules restrict any use of the information to criminally investigate or prosecute any alcohol or drug abuse patient.The records that you are about to access may contain highly sensitive health information, the redisclosure of which is protected by Article 27-F of the [facility] Public Health law. If you continue you may have access to information: Regarding HIV / AIDS; Provided by facilities licensed or operated by the [facility] Office of Mental Health; or Provided by the [facility] Office for People With Developmental Disabilities. If such information is present, then the following [facility] mandated warning applies: This information has been disclosed to you from confidential records which are protected by state law. State law prohibits you from making any further disclosure of this information without the specific written consent of the person to whom it pertains, or as otherwise permitted by law. Any unauthorized further disclosure in violation of state law may result in a fine or senior care sentence or both. A general authorization for the release of medical or other information is NOT sufficient authorization for further disc losure. Family History Family Member Name Family Member Gender Family Member Status Date o f Status Description Data Source(s) Unknown Unknown Problem [facility] ([facility]) Encounters Encounter Providers Location Date Indications Data Source(s ) Outpatient [facility] 01/17/2021 12:00:00 AM EST eCW1 (Formerly Named [facility]) Emergency Attender: ISAIAS TEJADA MDA tender: Isaias Tejada MDReferrer: Pedro Mosley DO A-ERMADULT 01/15/2021 11:45:00 PM EST - 01/16/2021 04:43:00 AM [facility] Patient discharged. Outpatient Attender: Chantelle Loomis PA-C 12/28/2020 09:09 :00 AM EST [facility] Outpatient [facility] 12/28/2020 12:00:00 AM EST eCW1 (Formerly Named [facility]) Outpatient 11/29/2020 07:49:24 PM EDT - 021 08:58:18 PM EDT [facility] ([facility]) Outpatient [facility] 10/06/2020 12:00:00 AM EDT eCW1 (Formerly Named [facility]) Outpatient Attender: James Casey 09/28 03:40:45 PM EDT - 09/28/2020 05:12:31 PM EDT [facility] ([facility] ) Outpatient Attender: Hermila Tena 09/01/2020 11:00:00 AM EDT [facility] Outpatient [facility] 08/31/2020 12:00:00 AM EDT eCW1 (Formerly Named [facility]) Preadmit Attender: Chantelle Loomis PA-C 08/28/2020 04:00 :00 PM EDT [facility] Outpatient Attender: David CONDON 021 05:35:06 PM EDT - 08/24/2020 06:14:49 PM EDT [facility] ([facility] ) Outpatient Attender: KATE VAZQUEZ PA-C 08/17/2020 12:06:00 PM EDT [facility] Outpatient Attender: Chantelle Loomis PA-C 08/17/2020 10:26 :00 AM EDT [facility] Admission cancelled. Disregard status an d admitted date. Outpatient Attender: Chantelle Grayferrer: Chantelle Loomis PA-C [facility] 08/17/2020 08:59:00 AM EDT - 08/17/2020 08:59:00 AM EDT [facility] Outpatient [facility] 08/17/2020 12:00:00 AM EDT eCW1 (Formerly Named [facility]) Outpatient [facility] 07/13/2020 12:00:00 AM EDT eCW1 (Formerly Named [facility]) Outpatient Attender: Chantelle Grayferrer: Chantelle Loomis PA-C EMER[facility]Y RO[facility] 07/06/2020 12:15:00 PM EDT - 07/06/2020 12:15:00 PM EDT [facility] Outpatient Attender: Chantelle Loomis PA-C 06/30/2020 07:59 :00 AM EDT [facility] Outpatient [facility] 06/30/2020 12:00:00 AM EDT eCW1 ([facility]) Outpatient [facility] 06/30/2020 12:00:00 AM EDT eCW1 (Formerly Named [facility]) Outpatient Attender: Sasha CONDON 021 05:42:54 PM EST - 04/24/2020 06:18:01 PM EST [facility] ([facility] ) Outpatient [facility] 01/17/2020 12:00:00 AM EST eCW1 (Formerly [facility]amed [facility]) Outpatient [facility] 12/02/2019 12:00:00 AM EDT eCW1 (Formerly Named [facility]) Outpatient [facility] 11/29/2019 12:00:00 AM EDT eCW1 (Formerly Named [facility]) Outpatient Attender: Chantelle GARCIAonsultant: [facility] [id number] 11/24/2019 11:10:00 AM [facility] Outpatient Attender: Chantelle Loomis PA-C [facility]50 [facility] 11/24/2019 12:00:00 AM EDT [facility] (Formerly Named [facility]) Outpatient Attender: Chantelle Loomis PA-C 11/04/2019 09:57 :00 AM [facility] Outpatient Attender: Chantelle Loomis PA-C 10/21/2019 10:06 :00 AM [facility] Outpatient Attender: Chantelle Grayferrer: Chantelle Loomis PA-C EMERGENCY ROOM-[facility] 10/07/2019 03:47:00 PM EDT - 10/07/2019 03:47:00 PM [facility] Outpatient Attender: Chantelle Loomis PA-C 10/07/2019 02:47 :00 PM [facility] Outpatient Attender: BAR DAVILACReferrer: BAR CRUZ 11/10/2018 01:50:00 PM EDT - 11/10/2018 01:50:00 PM [facility] pitoh Medications Medication Brand Name Start Date Product Form Dose Route Admi nistrative Instructions Pharmacy Instructions Status Indications Reaction Description Data Source(s) iohexol (OMNIPAQUE) 350 MG/ML contrast injection 175 mL [id number] 8 01/16/2021 12:15:00 AM EST 175 mL Given by IV completed 175 mL, Given by IV, 1 TIME IMAGING, On Fri01/16/21 at 0015, For 1 dose [facility] Medication administered onsite Lisinopril 10 MG Oral Tablet Lisinopril 10 MG 12/28/2020 12:00:00 A M EST 1.0 {tablet} active Lisinopril 10 MG eCW1 ( Formerly Named [facility]) Lisinopril 10 MG Oral Tablet Lisinopril 10 MG 12/28/2020 12:00:00 A M EST 1.0 {tablet} active Lisinopril 10 MG eCW1 ( Formerly Named [facility]) Sertraline 25 MG Oral Tablet Sertraline HCl 25 MG Sertraline HCl 25 MG 08/17/2020 12:00:00 AM EDT active Sertraline HCl 25 MG eCW1 (Formerly Named [facility]) Sertraline 100 MG Oral Tablet Sertraline HCl 100 MG Sertrali ne HCl 100 MG 08/17/2020 12:00:00 AM EDT active Sertraline HCl 100 MG eCW1 (Formerly [facility]amed [facility]) Sertraline 25 MG Oral Tablet Sertraline HCl 25 MG Sertraline HCl 25 MG 08/17/2020 12:00:00 AM EDT active Sertraline HCl 25 MG eCW1 (Formerly Named [facility]) Sertraline 25 MG Oral Tablet Sertraline HCl 25 MG Sertraline HCl 25 MG 08/17/2020 12:00:00 AM EDT active Sertraline HCl 25 MG eCW1 (Formerly Named [facility]) Sertraline 25 MG Oral Tablet [Zoloft] Zoloft 25 MG Zoloft 25 MG 08/17/2020 12:00:00 AM EDT active Zoloft 2 5 MG eCW1 (Formerly Named [facility]) Sertraline 25 MG Oral Tablet Sertraline HCl 25 MG Sertraline HCl 25 MG 08/17/2020 12:00:00 AM EDT active Sertraline HCl 25 MG eCW1 (Formerly [facility]amed [facility]) Sertraline 100 MG Oral Tablet [Zoloft] Zoloft 100 MG Zoloft 100 MG 06/30/2020 12:00:00 AM EDT 1.0 {tablet} active Zo loft 100 MG eCW1 (Formerly [facility]amed [facility]) Sertraline 100 MG Oral Tablet [Zoloft] Zoloft 100 MG Zoloft 100 MG 06/30/2020 12:00:00 AM EDT 1.0 {tablet} active Zo loft 100 MG eCW1 (Formerly [facility]amed [facility]) Sertraline 100 MG Oral Tablet [Zoloft] Zoloft 100 MG Zoloft 100 MG 06/30/2020 12:00:00 AM EDT 1.0 {tablet} active Zo loft 100 MG eCW1 (Formerly Named [facility]) Sertraline 100 MG Oral Tablet [Zoloft] Zoloft 100 MG Zoloft 100 MG 06/30/2020 12:00:00 AM EDT 1.0 {tablet} active Zo loft 100 MG eCW1 (Formerly [facility]amed [facility]) Sertraline 100 MG Oral Tablet [Zoloft] Zoloft 100 MG Zoloft 100 MG 06/30/2020 12:00:00 AM EDT 1.0 {tablet} active Zo loft 100 MG eCW1 (Formerly [facility]amed [facility]) Sertraline 100 MG Oral Tablet [Zoloft] Zoloft 100 MG Zoloft 100 MG 06/30/2020 12:00:00 AM EDT 1.0 {tablet} active Zo loft 100 MG eCW1 (Formerly [facility]amed [facility]) Sertraline 100 MG Oral Tablet [Zoloft] Zoloft 100 MG Zoloft 100 MG 06/30/2020 12:00:00 AM EDT 1.0 {tablet} active eCW1 (Formerly [facility]amed [facility]) Sertraline 100 MG Oral Tablet [Zoloft] Zoloft 100 MG Zoloft 100 MG 06/30/2020 12:00:00 AM EDT 1.0 {tablet} active Zo loft 100 MG eCW1 (Formerly Named [facility]) Ciprofloxacin 500 MG Oral Tablet [Cipro] Cipro 500 MG Cipro 500 MG 11/24/2019 12:00:00 AM EDT 1.0 {tablet} active Ci pro 500 MG eCW1 (Formerly [facility]amed [facility]) Ciprofloxacin 500 MG Oral Tablet [Cipro] Cipro 500 MG Cipro 500 MG 11/24/2019 12:00:00 AM EDT 1.0 {tablet} active Ci pro 500 MG eCW1 (Formerly [facility]amed [facility]) Ciprofloxacin 500 MG Oral Tablet [Cipro] Cipro 500 MG Cipro 500 MG 11/24/2019 12:00:00 AM EDT 1.0 {tablet} active Ci pro 500 MG eCW1 (Formerly Named [facility]) Ciprofloxacin 500 MG Oral Tablet [Cipro] Cipro 500 MG Cipro 500 MG 11/24/2019 12:00:00 AM EDT 1.0 {tablet} active Ci pro 500 MG eCW1 (Formerly Named [facility]) Insurance Providers Payer name Policy type / Coverage type Policy ID Covered alliance party ID Covered alliance party's relationship to lee Policy Lee Plan Information Medicaid [place] Medigap Part B [id number] Self [id number] [employer] [place] Workers Compensation [id number] [employer] [place] Workers Compensation [id number] [employer] ([place] Workers Compensation [id number] [employer] ([place] Workers Compensation [id number] MEDICAID [id number] Jessica [id number] [employer] COMM[employer] MCDHMO [id number] SP [id number] [employer] COMM[employer]ITY PLAN MCDHMO [id number] SP [id number] [employer] COMMUNITY PLAN MCDHMO [id number] SP [id number] MEDICAID [id number] [employer] COMMUNITY PLAN MCDHMO [id number] SP [id number] [employer] COMMUNITY PLAN MCDHMO [id number] SP [id number] [employer] COMMUNITY PLAN MCDHMO [id number] SP [id number] [facility] Community Plan Commercial [id number] Self [id number] [facility] Community Plan Commercial [id number] Self [id number] [facility] Community Plan Commercial [id number] Self [id number] [facility] Community Plan Commercial [id number] Self [id number] [facility] MEDICAID [id number] S [id number] [facility] LTV STEEL [id number] S [id number] [facility] LTV STEEL [id number] S [id number] [facility] Commercial Insurance Co. [id number] Self [id number] Medicaid Medicaid [id number] Self [id number] [facility] I [id number] Self [id number] [facility] I [id number] Self [id number] [facility] Commercial Insurance Co. [id number] Self [id number] [facility] Commercial Insurance Co. [id number] Self [id number] ANSI-Medicaid [id number] ANSI-Medicaid [id number] ANSI-Medicaid [id number] ANSI-Medicaid [id number] ANSI-Medicaid [id number] ANSI-Medicaid [id number] [facility] Health Maintenance Organization (O) [id number] Self [id number] [facility] [id number] ANSI-Medicaid [id number] ANSI-Medicaid [id number] ANSI-Medicaid [id number] ANSI-Medicaid [id number] ANSI-Medicaid [id number] ANSI-Medicaid [id number] [facility] [id number] SP [id number] [employer] COMMUNITY PLAN MCDO [id number] SP [id number] MEDICAID [id number] SP [id number] [facility] [id number] SP [id number] Medicaid [place] Medicaid [id number] Self [id number] [facility] Medigap Part B [id number] Self [id number] Medicaid [place] Medicaid [id number] Self [id number] [employer] COMM[employer]AN MCDO [id number] SP [id number] [facility] Chris/[facility] Health Maintenance Organization (HMO) [id number] Self [id number] [facility] Chris/[facility] Health Maintenance Organization (HMO) [id number] Self [facility] [id number] SP [id number] [facility] [place] O [id number] S [id number] [facility] O [id number] S [id number] [facility] [id number] SP [id number] [employer] [place] PLAN [id number] SP [id number] O BLUE [id number] SP [id number] [employer] COMMUNITY PLAN F [facility] [facility] [id number] SP [id number] [facility] MEDICAID [id number] S [id number] UN[employer] FB [id number] S [id number] [employer] INSUR[employer] CO [id number] SP [id number] [employer] [id number] SP [id number] SELF PAY ONLY [id number] [facility](MCAID) O [id number] S [id number] [employer](MCAID) O [id number] S [id number] [employer] [facility] O [id number] S [id number] [facility] [id number] S [id number] [employer] LTV STEEL [id number] S [id number] [facility] SP [facility] [id number] SP [id number] MEDICAID [id number] S [id number] [employer] LTV STEEL [id number] S [id number] [employer] [place] CHOICE PLUS [id number] SP [id number] [facility] [id number] SP [id number] [facility] MEDICAID [id number] S [id number] [place] 4 [place] [id number] S [id number] [facility](MCAID) O [id number] S [id number] [facility] [id number] 93 [id number] [facility] [id number] ANSI-Medicaid [id number] ANSI-Medicaid [id number] ANSI-Medicaid [id number] ANSI-Medicaid [id number] Problems, Conditions, and Diagnoses Code Display Name Description Problem Type Effective Dates Data Source(s) F41.1 Generalized anxiety disorder GENERALIZED ANXIETY DISOR DAMON Diagnosis 09/01/2020 11:00:00 AM [facility] F33.2 Major depressive disorder, 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 MAJOR DEPRESSV DISORDER, RECURRENT SEVERE W/O PSYCH FEATURES Diagnosis 09/01/2020 11:00:00 AM [facility] Z13.21 Encounter for screening for nutritional disorder ENCOUNTER FOR SCREENING FOR NUTRITIONAL DISORDER Diagnosis 08/17/2020 08:59:00 AM [facility] spital R03.0 Elevated blood-pressure reading, without diagnosis of hypertension ELEVATED BLOOD-PRESSURE READING, W/O DIAGNOSIS OF Diagnosis 02/2020 08:59:00 AM [facility] F41.8 Other specified anxiety disorders OTHER SPECIFIE D ANXIETY DISORDERS Diagnosis 08/17/2020 08:59:00 AM [facility] M17.11 Unilateral primary osteoarthritis, right knee UNILATERAL PRIMARY OSTEOARTHRITIS, RIGHT KNEE Diagnosis 07/06/2020 12:15:00 PM [facility] Z13.828 Encounter for screening for other muscul oskeletal disorder ENCOUNTER FOR SCREENING FOR OTHER MUSCUL Diagnosis 07/06/2020 12:15:00 PM [facility] M19.90 Unspecified osteoarthritis, unspecified site UNSPECIFIED OSTEOARTHRITIS, UNSPECIFIED Diagnosis 07/06/2020 12:15:00 PM [facility] l Z86.39 Personal history of other endocrine, nut ritional and metabolic disease PERSONAL HISTORY OF ENDO, NUTRITIONAL AN Diagnosis 07/06/2020 12:15:00 PM [facility] M25.511 Pain in right shoulder PAIN IN RIGHT SHOULDER Diagnosi s 07/06/2020 12:15:00 PM [facility] M25.561 Pain in right knee PAIN IN RIGHT KNEE Diagnosis 12:15:00 PM [facility] M54.2 Cervicalgia CERVICALGIA Diagnosis 07/06/2020 12:15:00 PM [facility] M54.5 Low back pain LOW BACK PAIN Diagnosis 07/06/2020 12:15:00 PM [facility] E78.2 Mixed hyperlipidemia MIXED HYPERLIPIDEMIA Diagnosis 07/06/2020 12:15:00 PM [facility] Z68.29 Body mass index (BMI) 29.0-29.9, adult B KENRICK MASS INDEX [BMI] 29.0-29.9, ADULT Diagnosis 06/30/2020 07:59:00 AM [facility] l E66.3 Overweight OVERWEIGHT Diagnosis 06/30/2020 07:59:00 AM [facility] Z71.89 Other specified counseling OTHER SPECIFIED COUNSELING Diagnosis 06/30/2020 07:59:00 AM [facility] K21.9 Gastro-esophageal reflux disease without esophagitis GASTRO-ESOPHAGEAL REFLUX DISEASE WITHOUT ESOPHAGIT Diagnosis 06/30/2020 07:59:00 AM [facility] Z00.00 Encounter for general adult medical examination without abnormal findings ENCNTR FOR GENERAL ADULT MEDICAL EXAM W/O ABNORMAL FINDINGS Diagnosis 06/30/2020 07:59:00 AM [facility] M54.6 Pain in thoracic spine PAIN IN THORACIC SPINE Diagnosi s 11/24/2019 10:50:00 AM [facility] N30.01 Acute cystitis with hematuria ACUTE CYSTITIS WITH MEGHAN TURIA Diagnosis 11/24/2019 10:50:00 AM [facility] R35.0 Frequency of micturition FREQUENCY OF MICTURITION Diag nosis 11/24/2019 10:50:00 AM EDT [facility] Z86.39 [id number] History of hyperglycemia Problem 12/28/2020 12:00:00 AM EST eCW1 (Formerly Named [facility]) I10 [id number] Essential hypertension Problem 12/28/2020 12 :00:00 AM EST eCW1 (Formerly Named [facility]) E04.1 [id number] Thyroid nodule Problem 12/28/2020 12:00:00 A M EST eCW1 (Formerly Named [facility]) 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, without psychotic features Problem 09/11/2020 12:00:00 AM EDT eCW1 ([facility]) F41.1 [id number] Generalized anxiety disorder Problem 021 12:00:00 AM EDT eCW1 (Formerly Named [facility]) E78.2 [id number] Mixed hyperlipidemia Problem 06/30/2020 12:0 0:00 AM EDT eCW1 (Formerly Named [facility]) Z86.39 H/O: thyroid disorder History of thyroid nodule Proble m 06/30/2020 12:00:00 AM EDT eCW1 ([facility]) M19.90 [id number] Arthritis Problem 06/30/2020 12:00:00 AM ED T eCW1 (Formerly Named [facility]) Surgeries/Procedures Procedure Description Date Indications Data Source(s) DRUGS OF ABUSE, URINE <td>DRUGS OF ABUSE, URINE</t d><td>STAT</td><td>01/16/2021 12:51 AM EST</td><td></td><td> </td> 01/16/2021 12:51:00 AM [facility] URNLS DIP STICK/TABLET REAGENT AUTO MICROSCOPY <td>URI NALYSIS WITH MICROSCOPIC</td><td>STAT</td><td>01/16/2021 12:51 AM EST</td><td></td><td> </td> 01/16/2021 12:51:00 AM [facility] CT ANGIO ABD&PLVIS CNTRST MTRL W/WO CNTRST IMGES <td>C T ANGIOGRAPHY ABDOMEN AND PELVIS 17386</td><td>STAT</td><td>01/16/2021 12:47 AM EST</td><td></td><td> </td> 01/16/2021 12:47:28 AM [facility] CT ANGIOGRAPHY CHEST W/CONTRAST/NONCONTRAST <td>CT ANG IOGRAPHY THORAX 29992</td><td>STAT</td><td>01/16/2021 12:47 AM EST</td><td></td><td> </td> 01/16/2021 12:47:28 AM [facility] EKG 12-LEAD - CMAXX REPORT <td>EKG 12-LEAD - CMAXX REPORT</td><td></td><td>01/16/2021 12:31 AM EST</td><td></td><td></td> 01/16/2021 12:31:57 AM [facility] EKG 12-LEAD <td>EKG 12-LEAD</td><td>STAT </td><td>01/16/2021 12:31 AM EST</td><td></td><td></td> 01/16/2021 12:31:57 AM EST [facility] CT ANGIOGRAPHY NECK W/CONTRAST/NONCONTRAST <td>CT JAMILA OGRAPHY NECK 94991</td><td>CODE</td><td>01/16/2021 12:30 AM EST</td><td></td><td></td> 01/16/2021 12:30:00 AM EST [facility] CT ANGIOGRAPHY HEAD W/CONTRAST/NONCONTRAST <td>CT JAMILA OGRAPHY HEAD 82014</td><td>CODE</td><td>01/16/2021 12:30 AM EST</td><td></td><td></td> 01/16/2021 12:30:00 AM [facility] RESPIRATORY PATHOGEN PANEL <td>RESPIRATORY PATHOGEN PANEL</td><td>Routine</td><td>01/16/2021 12:10 AM EST</td><td></td><td> </td> 01/16/2021 12:10:00 AM [facility] COVID-19 PCR <td>COVID-19 PCR</td><td>Rou liz</td><td>01/16/2021 12:10 AM EST</td><td></td><td> </td> 01/16/2021 12:10:00 AM [facility] POCT ISTAT VBG/LAC <td>POCT ISTAT VBG/LAC</td>< td>Routine</td><td>01/16/2021 12:08 AM EST</td><td></td><td> </td> 01/16/2021 12:08:00 AM [facility] TROPONIN T HIGH SENSITIVITY <td>TROPONIN T HIGH SENSITIVITY</td><td>STAT</td><td>01/16/2021 12:07 AM EST</td><td></td><td> </td> 01/16/2021 12:07:00 AM [facility] PROTHROMBIN TIME <td>PROTIME INR</td><td>STAT </td><td>01/16/2021 12:07 AM EST</td><td></td><td> </td> 01/16/2021 12:07:00 AM [facility] BLOOD COUNT COMPLETE AUTO&AUTO DIFRNTL WBC COUNT <td>C BC AND DIFFERENTIAL</td><td>Routine</td><td>01/16/2021 12:07 AM EST</td><td></td><td> </td> 01/16/2021 12:07:00 AM [facility] BLOOD TYPING ABO <td>TYPE AND SCREEN</td><td> STAT</td><td>01/16/2021 12:07 AM EST</td><td></td><td> </td> 01/16/2021 12:07:00 AM [facility] THYROID STIMULATING HORMONE TSH <td>TSH</td><td>Routin e</td><td>01/16/2021 12:07 AM EST</td><td></td><td> </td> 01/16/2021 12:07:00 AM [facility] THYROXINE FREE <td>T4, FREE</td><td>Routine </td><td>01/16/2021 12:07 AM EST</td><td></td><td> </td> 01/16/2021 12:07:00 AM [facility] PHOSPHORUS INORGANIC <td>PHOSPHORUS LEVEL</td><td >STAT</td><td>01/16/2021 12:07 AM EST</td><td></td><td> </td> 01/16/2021 12:07:00 AM [facility] MAGNESIUM <td>MAGNESIUM LEVEL</td><td> STAT</td><td>01/16/2021 12:07 AM EST</td><td></td><td> </td> 01/16/2021 12:07:00 AM [facility] HEPATIC FUNCTION PANEL <td>HEPATIC FUNCTION PANEL A</td><td>STAT</td><td>01/16/2021 12:07 AM EST</td><td></td><td> </td> 01/16/2021 12:07:00 AM [facility] LIPID PANEL <td>LIPID PANEL</td><td>Rout ine</td><td>01/16/2021 12:07 AM EST</td><td></td><td> </td> 01/16/2021 12:07:00 AM [facility] BASIC METABOLIC PANEL CALCIUM TOTAL <td>BASIC METABOLI C PANEL</td><td>STAT</td><td>01/16/2021 12:07 AM EST</td><td></td><td> </td> 01/16/2021 12:07:00 AM [facility] CT HEAD/BRAIN W/O CONTRAST MATERIAL <td>CT HEAD STROKE</td><td>CODE</td><td>01/15/2021 11:58 PM EST</td><td></td><td></td> 01/15/2021 11:58:48 PM [facility] ECG ROUTINE ECG W/LEAST 12 LDS W/I&R 12/28/2020 12:00: 00 AM EST eCW1 ([facility]) Results ID Date Data Source [id number] 01/18/2021 07:19:45 PM [facility] Name Value Range Interpretation Code Description Data Alla rce(s) Supporting Document(s) ED Provider Note [facility] XQFRMd0wDuBKElKe13/VEJcbHIGju4VdQEbzTQm3NPfbGVVrD0PlTWK2cP2kCQN5MLaUKoSjFjOvTaNe lbm [file] AgICAgICAgICAgICAgICAgICAgICAgICAgICAgICAgICAgICAgICAgICAgICAgICAgICAgICAgICAgIC UkVRDcZXPpWFUrXWAcLIJeWJWiOXDkNF5IQLYfBKHaQUMgIGPrRPBpRVYgALUnCHPyVAVuGMSlZDJoSM AgICAgICAgICAgICAgICAgICAgICAgICAgICAgICAg FJAoMBMxVMMwBCBwUZZkEYPsNINpTBYoCAShQFRsFFAtSL8JHIGnSYDmRQLmFVKfTTMfOPGlKSJcPYFw ICAgICAgICAgICAgICAgICAgICAgICAgICAgICAgICAgICAgICAgICAgICAgICAgICAgICAgICAgICAg CWNoAURbEUQnJKDwUMSlBG6YJRCwOZCkFBXnJASyMD AgICAgICAgICAgICAgICAgICAgICAgICAgICAgICAgICAgICAgICAgICAgICAgICAgICAgICAgICAgIC LdNLQfKGKgTQLlSCXtOTVyARGkSGXaJAAhTU8CFFKhVSZzYGNoUIBcLOVnDIVzJPZbIXAqFPWsPQHwCZ AgICAgICAgICAgICAgICAgICAgICAgICAgICAgICAg MLScKDFwDYRyWRYwJWPkJGHeSMNdQFFbUSMdHMDjKQSjBWBmZA7PZMHwPKXbCVDiVQRxZRUzAJLsRMSm ICAgICAgICAgICAgICAgICAgICAgICAgICAgICAgICAgICAgICAgICAgICAgICAgICAgICAgICAgICAg OJHpUNPpUQBuPIHwQLXeRDTqWI2FRMIsWHQoBJAqUX AgICAgICAgICAgICAgICAgICAgICAgICAgICAgICAgICAgICAgICAgICAgICAgICAgICAgICAgICAgIC QdOKBwCGZtMDXbZYOrUDEhXEFyROUtVXYqRCZeCH7LOCMrFHFiBCHvAUFrGFAgATKmTXErHITjZDZiWS AgICAgICAgICAgICAgICAgICAgICAgICAgICAgICAg RSQqANLwSABdQYBsBTDnTHDyLMPyUJXwBHCxMXVhBLIxFIFsLRAgCZ6BRAAuGVTiIVScFBBwPSMxOJEc ICAgICAgICAgICAgICAgICAgICAgICAgICAgICAgICAgICAgICAgICAgICAgICAgICAgICAgICAgICAg PWOdAQWoBGMbCJEkCYVtQEFuNNDnNY0TIALbSGUjXE AgICAgICAgICAgICAgICAgICAgICAgICAgICAgICAgICAgICAgICAgICAgICAgICAgICAgICAgICAgIC GyTGToPVBmBTWcHKPeNFDzKZHeWMYzOLYcUREqVAQbPR9FGY25dZEcq3U9JURzGO6ruqw/Xm5OXUfogo WndLPvMM0HInJxKX1vfn1DQmKhGA0vys7YHRkJBhUc G0R7rJAqATWhTNFBYcRwQ20jXQrrGp00ZFqwUNEpTwUkBQq9Bd5JDeYhZ5lbBUScFjD8HQJbFtS4JWZy ZhS7LFGqQlKoFMWyZDUbIKXxIPCGCCH9VRWdRbDzKeWoEUWkVA3TDGVdB050thDvUn0HQu6ORuRfEB4r ex4JYwNvQSDbQliWLns0SUohYD9QaQFzlXOeFYAxHB LOBxRiW6mti8KbJherWWQZVAxxGC8Ox4QdaLJaALr+Zm1ZOG1mz2WpWUepKVPiQM5nfz9FWKcEIgQpB2 OvzMvnFNXBSIXvu6WxIAEjKI8szRJxVBF9UUQtxa3nkvObGXVEy7q0zNMcMFQEMgFjcCKuVL3hXZ4rVS WtNXBhPrNcNCFINE0GOVQhDTOiiBCuHCBhNQOLPL3D GPlbTSY9RkLmupGdvRBaAEumRK6VGSJzixEaAsJrPSYSECrlEZ6AMNl9GCH4FLEqGk2NAz5ENfAbWA4g zi6XHzAcUBTnVbeNYub2TKcwHY8NuSRiIWuIQZIKhj11sHVztrZEe8EzykJdnOFIQZTmGZSoESCcEV3q fS3gtcbnAB7yWQPaXAOyWmIsCdKoCKErJqxjQdOMDN sQYxTfW6Ysd6WnMaPwXXLyPIBvG9zOMoYyZMO1NQMinBtpEX2CDmIrM1PplnFupFVrBOGyHEXNMaYyW8 MxEVIvSfAeKRZCZVxtQP4JFOf8UQX6RNKfTy5IAc1YFzBqRW5zrc8VJkdqHCAaPdcWJic0GKjcXV5XnE PvVRxQTOUUc9HkhwKseOIZTF9pkNHHROJuN11dRXMB DpGrhFAuDR3uDR3sGRUxLLFgOvQ5XMRIQB9GJLBmWQTczZOzMGA4QTLvNmFtYEncKGUuZyvoXC44cSiq ZT7USHMiIEMmXL94PMU8KVNsGx3GQKKeJDIylcVnWlAmLPZIId4+RTbqghWdWwuIOaA0ZKEod0NfGYi0 FA7CURTkZJuuOT6OHZMhlM0tENpiPA0OMaRkNiMjEL ONSvKbH65jsVRzXZs4E8FbHwRyMSYaBpfuYJQhCQhgCkGdHGFyRbAhXOuaLN0+ID4+PHcmHE8ENZlbjb GdFRCbNo0NRINlJBNiRU2iKHTpFRAyR3D8aTxdBKDCHqBpB0lpnbwfYB5lOKPrE025gRzkioFjWYN7ST FhYr1ABKMuFVR0AZJxjZAtKvWoRYVSBOblOF7IsPKs LNF9rM7gKFiaCXSpCPYyD8gMGaVaqVpmGA05oDogspRwxUGpCKt+Ak0BLM8vk4EiWIr6awYbOYvwEHW2 POdxJHVhYBYkPGYwPHO4ARD7BWKJSyWiAIUoISOuFWbuTHXpNNPstg2PBMZcCLUbQTI7WNBdKLBxEPIj HClxZSWcNCMqGSojGQDgFHRrAP4JFnGfNZGqXPQnBT vwHAKfIGCduo3JCFKgTDLlRmJ7IFMcRMUdFHLdNXkkATNdGMXaXQftROQaPVTeEQ7YKcTwXUHmKHZ5Pp iyCXDqQRJjnt4PZZNwUZVqMeLcMPOmOQQzNVOhEYdeBHNjHTVhNzI2XZQvXDUdLE0KWyPgNMRqLHX4Uj MwMPBzOUYgpe6ZQHXyOKAeXxJeGMZyJURlQCOnKOgg FXRmDKHiKUH5MIJiCKYaTH2TTuWjFBUlTJY2QKRgBWWjDOIjyk0PUTQjLVMoBiD6KDJzZKKcRQEyTHqp TDXbLAG6SwYiQCVeDJOgUK7DNhYzIDNdSIx3EPtnBRJcFHEzrm3VCEOcYRWkRaybDGPiFSYuGGSmPWiq MENdYUCdKDXeMUJxIQPsMG9OTrYbOMOtDfNaHsVyOP TnYUDbun5LNINyYAMlZBD3IrBkCKXbPBShPCfpUELxHFA3LNMmOTYnBQVlWR4IScYdTIPiPgD5QVmjOO NoZZYkya0ETLGwHDCpVBVoZLJfQZVzXJPxSMhfZLPkSAS3Tqi4OCMuSNEsNK5MWjLoYWWxDcQ4QFuqWT PvFARwiv9KXTVyZAAuGas4DmGrAYRsZCLaUSloCCOu LUD9OME4SUTnELTeGZ6RPzShSHKpLdm5MkEvKWAkJLUely3MCXJaJPVuFCu0KcMuETNfPRSfGMgpAPDd AUF2CTLlMCYgFRLeQA2PItYgNWElObjcOCFyFEVqDRRmge7MDPXzUFYaIIDdYnIvKAQgLOMmMGffQLCq VFF0XBYdDWVqZLEiDT4BRnFfUSBhKJUmOkUvRQNtIO Gsnd1JCJLbGFF9ELYgWlJlZAJtOSFeANhkDPTjUCOkOMb3QPFnURFoYO2DZxXsQLQeAQA4NoBwWUNqVE Bfbf2QTIInUFR7PLcaQlXvKHOmUYEkXNa6yqDttSDrUPg0RF9MA8LroyItLzdJYh5Sz873ELI2XTYhSb 2AJ1uiOs9eTSVuEAWROg4KIUi0XGNrTXA0KWY3VUKo BvPiJwCvHuL8NWCvPYn8GSPzXUV+EEhqPcSxNwJwCSGlURC6LjNjNqNiDaO4QdTuCwN9GvC7Wh2vUMAE Cj4+SAvvtPEbfRysYSXELbHfGNY1UCazARRWGz5Z ID Date Data Source [id number] 01/16/2021 09:54:48 AM [facility] Name Value Range Interpretation Code Description Data Alla rce(s) Supporting Document(s) [facility] FFNEQj6zIjUROpNhl0OkIgIsRCEiAL3tmvh8N2Q6xLYhN2GseNBlv6tpW8TwR7RuBJKmIZPIMB1RgPPn jb2 [file] /CEyg54AyJq/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 barrel reamer+tZ/tftv4Hvz+Fs43XCuoIhJ6mQ+mg0tMH1K6fbt6Jm/j+5yoVpuec16G+gfaHejP [file] T679w5g7cY6396/b/97DUpJ2/xq99+fHx8/va3r0Z+ +qt91vnLR6980Ehje/W3awX4T/nWuntoRcKD/bavvvntdx+f/+lfvv+nX/+V2+4/6G7eW25+87NfffXF U27c3Hqfi/Xlxz9//O9f/PDpu4+vvvmHT5+/+uqgd7sfutdWf5/l+aKP+s23r5t+8/nTl99+sqFp4d4/ 4/Xt7WN649/8/Tx490828hmRU5uP7cvyt/iXj19+in t+8+3ro1+hk2v7X0suqG/5qAkwfCk2n+ywvb0g2tEKrn+++U3f5FelF1+//P7j7z6++MdPLxH+6tOL8e yRpB48C2t5YAv31Ii/+fTlV//w+naxXnR90rspWeE/+iX5v/NPYXQ0884+9utvv/nHT7/6+Ofvv/zpfT b23K4nid7n94c/+Ykxk2LOgRAigh+++kjQCe51c/v4 7wcocym0y84+/ohxBUXDhH9DF//pP37/lz/++O8f/8f/+vjh93/4w+/+8pcff/eHv/v41e/+9Psf//Dx r/+jzH/9248//+n15M/d8sG4SUgwkT9myJ0lyg0sPg709Ss/8Y8//0++k84Z5NO83A/2Trv5NdR7/Hb9 0/2H7n5wQrf980wutils0E+c0m23lqI6s3SPsaE+/o sdEDez3wTjtt4sCkJQAte5o/j843/8+XJWIo7vhRuA9+fbccy8w02/+vbr73/0ssnb8fhJ4syY5m/vBy NkbGep2XN2Ark++KzBcsvKPoNaBYL2c9E//Pin//r7j7/87r9+xFg99hQ/iNQ/901/SWxwk3tzmo+09s E1asvU0//sb227t//r6skc0S+BvlcfbT+42QuiH7x/ /vzdx7//z1fbf//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/20+b886krZZqRT91+///k/f/5y9Js2Icil7w3ud48Cdar170jhwTB+7voRR1f9 mUWwlMG0gCMJ50uzxs8O3f+/+39//M//ZsGvpgr0t/47P81r+r3+bf/rL//6tz+5+/TDP/z4x9/94a2H 1xv/y9/9z3/73X/+/nd/+w36CTY2/Oc///EXP+GeBn /953/0yMyzcl0KkPK17m/+2//1p9//2+zMs0w105WM/eTejTMS9/0lw91Teh//3thhixNf2+1WImVI1c /87v/88aN8/Pk/Aaf284b3fGF8y6ct7j/79vpTmVks5AizzmtmpFF08N/5+nd8+pkq1vp9Jro5/Pjiyy +//h45v4wl58I6S6dW81J/O0ghuACTDP4af9AfTKKy RvLiEG6zxfdiPMJtFC1irlq0I9LmeWubHMoRCONoBz6phBIlNG9SRVD2JBxqJHPzPSLiJ1HxrS3yV90l zLWlXvCwTGLXJJ2GvaV9MTS8GTT1RQGiCmEuQVFwVN67SNScJFMEKb5tziOoFcbZEvUdEO3irzx2T9G1 tVJtZ233sBlrthWnSQ3On4ZgeBQzTN2SiELgiTNfTY CbONErX5edg5JwVLbwKRETQs2zaoBkRnrCQhGyPI0akun8U6G6fBaugrNlHBEHDJpeGonvOG7hkEmpds bfA3QveUYjQTTyJ1PcXOHmw90NWBQgBVzLOaJyEoReLLJuCPj8EMokJfHlGHPwJNNiHAKjPV2FxBQsOK BmHSKHGYznAiqrGHEqkF0mxABMq1NqRSHZFWnLEHHG XRaHTSD8HFV9BTTiVMYiV4MyeiUmnIGhUTVHXXjdZwlvXOAabE4wfAtrQ9OuEXA6z6CwIX0KW6YpTDMe IOXIYMD2r4ViLAWeyskhhcfbHwEjTDYwKYJcKCHnKP5Xbz9kaABzziQxNZIQKOukVitrDC9gzJvgyboi P7AuiDWdVSN+DhFxVW9alh3+XwBiIJYcGbn7PGUzTO enLYHlNZJlDZEbZ3fnNOUqUdFrZDRqFgTvTY6Xy8NykBHmEo9aweSrVlhSeWHkNzoiSNEjFETtEIPvFf YKGWHwKZRbHMMnXID3FNLnVXXdPImfHBPwDQqxPWB6CSNgBRByBI7tFzHaNXOlPqO6WqEqWRWwEDQanc XLWMCwYVV3QeH8DIMuPCTrKEMaNHjsNEBgDPPjBHLd NKM5ESA7EXCdMwEzLPUzHODaWWZwUTJhCLHuxyVHOHWlTUYbNID3BHCcOPVbTYRaMPhzFZAnUFWePNdo GDZnLUPuYR2mPjGsNDXbAYPyGAszGNRcPQPjyyDYAAKpJQEnLKPkCIPmYNBuAUFrJSllOFCkCERjDOEj TGLnPFTaOP5cTvVaPWAwNTX1TDDfYKWiDNDpjzVDJZ SsNLJdBXv5ZGKtIQFyUBSmRAowGJPxGLKlDSE0XCQrAQMzCH6xKbHxAGBuONY8ApTeKAEjMYXnipZCGG KbRSBtKYW8OwEvKIYmPWGtBGdgMXSzTTIxPUbvMKHnSARsOF6uGuPnCBWrNPEoICgmLBTkLQLclqINBB BmUZBrGRBiFjUdBXEwUFLbSOamYDAfAVnoBBG1SDGr OGAyUC9sWkVqISLcVOR0UHqtGMKnIPVamnVIMHSsXABnLJlbTYTsHWVsAFIqSAekIOPdVGExZGD0SRGk BUBtUS5bLvVyEACbXUZbTNEbOxO9MzAzWrYFmHNysRoimmk8XZnfZ6i9LHGlHLjzWU2hrpHbBIOyEsmh Lo3fgVJ1JZNbDusLPv8Jt4RwqkU2smWxIvirYDC7LyFnYW4Z ID Date Data Source [id number] 01/16/2021 07:50:20 AM [facility] CT HEAD STROKEFINAL RESULTInterpreted by :Amanda Carlson DOINDICATION: Stroke Code.TECHNIQUE: Multidetector axial CT images were obtained from the skull base to the vertex without administration of intravenous contrast. Coronal and sagittal reformats were also obtained. Automated dose lowering techniques and/or adjustment according to patient size were utilized for this exam.COMPARISON: None.FINDINGS: Hypodensities in the right thalamus the seen. Hypoattenuation within the kenny is likely related to streak artifact. The ventricles are appropriate in size. No mass effect or midline shift is appreciated. The basal cisterns are patent. No extra-axial fluid collections are identified. The calvarium is intact. The visualized paranasal sinuses and mastoid air cells are clear. IMPRESSION: Hypodensity left thalamus, probably a lacunar infarct, and streak artifact in the kenny. No large arterial territory infarct or acute intracranial hemorrhage .Multiple attempts were made to page stroke resident on-call at 12:03 AM on 01/16/2021. Message were conveyed to Everardo Kline MD on 12:12 AM on 01/16/2021.This document has been electronically signed by KELSIE Carlson on 01/16/2021 7:48 AM Name Value Range Interpretation Code Description Data Alla rce(s) Supporting Document(s) ID Date Data Source [id number] 01/16/2021 07:36:39 AM [facility] CT ANGIOGRAPHY HEAD [id number] RESULTInt erpreted by:Amar Swarnkar, MBBSZaid Dilia, DOINDICATION: Stroke follow-up.TECHNIQUE: Contiguous axial CT images of the head were acquired from the base of the skull to the vertex without intravenous contrast administration. CT angiography of the head and neck was performed following intravenous administration of Omnipaque 350. Multiple MIP images in axial, coronal, and sagittal planes were then acquired using the source data. 3-D volume rendered images were not available at the time of this dictation. Automated dose lowering techniques and/or adjustment according to patient size were utilized for this examination.Assessment of stenosis of the internal carotid arteries is based on NASCET criteria.COMPARISON: CT head dated 01/15/2021 at 11:44 PM.FINDINGS: Non-enhanced CT head: There is no acute intracranial hemorrhage or evidence of acute territorial infarction. There is hypoattenuation present within bilateral lentiform nuclei, could be related to lacunar infarcts or prominent perivascular spaces. The ventricles and cerebral sulci are normal. The basal cisterns are patent. No midline shift. No extra- axial fluid collection.The paranasal sinuses and mastoid air cells are clear. CTA Neck:AORTIC ARCH: Three vessel arising from aortic arch. COMMON CAROTIDS: Imaged segments are patent. RIGHT INTERNAL CAROTID ARTERY: No hemodynamically significant diameter stenosis or dissection. LEFT INTERNAL CAROTID ARTERY: No hemodynamically significant diameter stenosis or dissection.VERTEBRAL ARTERIES: Patent extracranial segments without significant stenosis. No dissection. The right vertebral artery is dominant.CTA Head: The intracranial segments of the internal carotid arteries, the anterior, middle and posterior cerebral arteries, the anterior communicating artery, the intracranial segments of the vertebral arteries, and the basilar artery are patent without hemodynamically significant stenosis. No aneurysm, arteriovenous malformation, dissection, nor hemodynamically significant flow stenosis is shown. OTHER: Imaged portions of the lung apices are clear. No neck mass or suspicious lymph nodes. IMPRESSION: 1. No acute intracranial hemorrhage or acute territorial infarct. There is nonspecific hypoattenuation within bilateral lentiform nuclei, could be related to prominent perivascular spaces/ prior lacunar infarcts.2. Major arteries of the [place] are patent.3. Bilateral internal carotid arteries are patent without significant stenosis.Findings were discussed with Bethany Chacon MD, over the phone at 12:49 AM on 01/16/[address] Dobbs.This document has been electronically signed by KELSIE Carlson on 01/16/2021 7:34 AM Name Value Range Interpretation Code Description Data Alla e(s) Supporting Document(s) ID Date Data Source [id number] 01/16/2021 07:36:39 AM [facility] CT ANGIOGRAPHY NECK [id number] RESULTInt erpreted by:Amanda Carlson DOINDICATION: Stroke follow-up.TECHNIQUE: Contiguous axial CT images of the head were acquired from the base of the skull to the vertex without intravenous contrast administration. CT angiography of the head and neck was performed following intravenous administration of Omnipaque 350. Multiple MIP images in axial, coronal, and sagittal planes were then acquired using the source data. 3-D volume rendered images were not available at the time of this dictation. Automated dose lowering techniques and/or adjustment according to patient size were utilized for this examination.Assessment of stenosis of the internal carotid arteries is based on NASCET criteria.COMPARISON: CT head dated 01/15/2021 at 11:44 PM.FINDINGS: Non-enhanced CT head: There is no acute intracranial hemorrhage or evidence of acute territorial infarction. There is hypoattenuation present within bilateral lentiform nuclei, could be related to lacunar infarcts or prominent perivascular spaces. The ventricles and cerebral sulci are normal. The basal cisterns are patent. No midline shift. No extra- axial fluid collection.The paranasal sinuses and mastoid air cells are clear. CTA Neck:AORTIC ARCH: Three vessel arising from aortic arch. COMMON CAROTIDS: Imaged segments are patent. RIGHT INTERNAL CAROTID ARTERY: No hemodynamically significant diameter stenosis or dissection. LEFT INTERNAL CAROTID ARTERY: No hemodynamically significant diameter stenosis or dissection.VERTEBRAL ARTERIES: Patent extracranial segments without significant stenosis. No dissection. The right vertebral artery is dominant.CTA Head: The intracranial segments of the internal carotid arteries, the anterior, middle and posterior cerebral arteries, the anterior communicating artery, the intracranial segments of the vertebral arteries, and the basilar artery are patent without hemodynamically significant stenosis. No aneurysm, arteriovenous malformation, dissection, nor hemodynamically significant flow stenosis is shown. OTHER: Imaged portions of the lung apices are clear. No neck mass or suspicious lymph nodes. IMPRESSION: 1. No acute intracranial hemorrhage or acute territorial infarct. There is nonspecific hypoattenuation within bilateral lentiform nuclei, could be related to prominent perivascular spaces/ prior lacunar infarcts.2. Major arteries of the [place] of [place] are patent.3. Bilateral internal carotid arteries are patent without significant stenosis.Findings were discussed with Bethany Chacon MD, over the phone at 12:49 AM on 01/16/[address] Dobbs.This document has been electronically signed by KELSIE Carlson on 01/16/2021 7:34 AM Name Value Range Interpretation Code Description Data Alla rce(s) Supporting Document(s) ID Date Data Source [id number] 01/16/2021 01:02:08 AM [facility] Name Value Range Interpretation Code Description Data [facility] rce(s) Supporting Document(s) Bicarbonate [Moles/volume] in Serum 19 mmol/L 22-29 L [facility] Chloride [Moles/volume] in Serum or Plasma 103 mmol/L 98-107 [facility] Creatinine [Mass/volume] in Serum or Plasma 0.70 mg/dL 0.50-0.90 [facility] Glucose [Mass/volume] in Serum or Plasma 108 mg/dL 70-140 [facility] Potassium [Moles/volume] in Serum or Plasma 3.4 mmol/L 3.4-5.1 [facility] Sodium [Moles/volume] in Serum or Plasma 134 mmol/L 136-145 L [facility] Urea nitrogen [Mass/volume] in Serum or Plasma 10 mg/dL 6-20 [facility] QA FLAGS AND/OR RANGES MODIFIED BY ThirstyOG RAPHIC UPDATE ON 01/16 AT 0310 Anion gap 3 in Serum or Plasma 12 mmol/L 8-15 [facility] Osmolality of Serum or Plasma by calculation 278 mosm/kg 275-300 [facility] Creatinine/Urea nitrogen [Mass Ratio] in Serum or Plasma 14 [facility] Calcium [Mass/volume] in Serum or Plasma 9.2 mg/dL 8.6-10.0 [facility] QA FLAGS AND/OR RANGES MODIFIED BY DEMOG RAPHIC UPDATE ON 01/16 AT 0310 Glomerular filtration rate/1.73 sq M pre dicted among non-blacks [Volume Rate/Area] in Serum or Plasma by Creatinine-based formula (MDRD) >6 0 [facility] Glomerular filtration rate/1.73 sq M pre dicted among blacks [Volume Rate/Area] in Serum or Plasma by Creatinine-based formula (MDRD) >60 [facility] ID Date Data Source [id number] 01/16/2021 01:02:08 AM [facility] Name Value Range Interpretation Code Description Data Alla rce(s) Supporting Document(s) Magnesium [Mass/volume] in Serum or Plasma 2.0 mg/dL 1.6-2.6 [facility] QA FLAGS AND/OR RANGES MODIFIED BY DEM RAPHIC UPDATE ON 01/16 AT 0310 ID Date Data Source [id number] 11/29/2020 08:00:00 PM EDT [facility] Name Value Range Interpretation Code Description Data Alla rce(s) Supporting Document(s) SARS-CoV-2 RNA Resp Ql JUAN RAMON+probe NOT DETECTED [facility] This lab was ordered by JAQUELIN gongora and reported by JAQUELIN Amin. ID Date Data Source [id number] 09/28/2020 05:00:00 PM EDT [facility] Name Value Range Interpretation Code Description Data Alla rce(s) Supporting Document(s) SARS-CoV-2 RNA Resp Ql JUAN RAMON+probe NOT DETECTED [facility] This lab was ordered by JAQUELIN gongora and reported by JAQUELIN Amin. ID Date Data Source [id number] 08/18/2020 06:10:00 AM EDT [facility] Name Value Range Interpretation Code Description Data Alla rce(s) Supporting Document(s) VITAMIN D, 25-HYDROXY 25.2 ng/mL 30.0-100.0 [facility] Vitamin D deficiency has been defined by the [place] [employer] and an Endocrine Society practice guideline as alevel of serum 25-OH vitamin D less than 20 ng/mL (1,2).The Endocrine Society went on to further define vitamin Dinsufficiency as a level between 21 and 29 ng/mL (2).1. IOM ([place] [employer]). 2010. Dietary reference intakes for calcium and D. [place]: The National Academies Press.2. Bita MF, Ray CALL, Hayder GUERRERO, et al. Evaluation, treatment, and prevention of vitamin D deficiency: an Endocrine Society clinical practice guideline. JCEM. 2010; 96(7):1911- 30.Performed at: RN - [facility] [address] [id number] Director: Trudy Mckinley MD, Phone: [phone] ID Date Data Source [id number] 08/18/2020 06:05:00 AM EDT [facility] Name Value Range Interpretation Code Description Data Alla rce(s) Supporting Document(s) Vitamin D, 25-Hydroxy 25.2 ng/mL 30.0-100.0 Below low normal [facility] Vitamin D deficiency has been defined by the [place] [employer] and an Endocrine Society practice guideline as alevel of serum 25-OH vitamin D less than 20 ng/mL (1,2).The Endocrine Society went on to further define vitamin Dinsufficiency as a level between 21 and 29 ng/mL (2).1. IOM ([place] [employer]). 2010. Dietary reference intakes for calcium and D. [place]: The National Academies Press.2. Bita MF, Ray [place], Hayder GUERRERO, et al. Evaluation, treatment, and prevention of vitamin D deficiency: an Endocrine Society clinical practice guideline. JCEM. 2010; 96(7):1911-30. ID Date Data Source VITAMIN D, 25-HYDROXY 08/17/2020 12:00:00 AM EDT eCW1 (Formerly Named [facility]) Name Value Range Interpretation Code Description Data [facility] rce(s) Supporting Document(s) 25.2 30.0-100.0 VITAMIN D, 25-HYDROXY eCW 1 (Formerly Named [facility]) ID Date Data Source [id number] 07/06/2020 01:03:00 PM EDT [facility] DATE OF EXAMINATION: 07/06/2020 12:29 EDT HISTORY: Pain TECHNIQUE: A views of the cervical spine were obtained. FINDINGS: Bones are well-mineralized and properly aligned. Moderate degenerative discdisease with diminished disc height and desiccation is seen at C5-6 and C6-7with moderate sized anterior and small to moderate sized posterior spurformation. There is no fracture. Flexion views reveal 3 mm anterior subluxationof C7 on T1 which corrects on extension views. Mild bilateral uncovertebralspurring is seen at C4-5 through C6-7 without any significant neural foraminalstenosis. IMPRESSION: Degenerative changes as described above. Electronically signed in PS360 by: Ayana Kemp M.D. 07/06/2020 12:58 EDT Name Value Range Interpretation Code Description Data Alla rce(s) Supporting Document(s) ID Date Data Source [id number] 07/06/2020 01:02:00 PM EDT [facility] DATE OF EXAMINATION: 07/06/2020 12:29 EDT HISTORY: Pain TECHNIQUE: 4 views of the right shoulder were obtained. FINDINGS: No evidence of acute fracture or dislocation. Alignment is normal.Acromioclavicular joint is normal. No aggressive osseous lesions or erosions.Bone mineral density is unremarkable. Visualized lung is clear. Visualized softtissues are normal. IMPRESSION: No evidence of acute fracture or dislocation. Electronically signed in PS360 by: Ayana Kemp M.D. 07/06/2020 12:56 EDT Name Value Range Interpretation Code Description Data Alla e(s) Supporting Document(s) ID Date Data Source [id number] 07/06/2020 01:02:00 PM EDT [facility] DATE OF EXAMINATION: 07/06/2020 12:29 EDT HISTORY: Pain TECHNIQUE: 4 views right knee were obtained. FINDINGS: No evidence of acute fracture or dislocation. No knee joint effusion. There isnormal alignment. No aggressive osseous lesions or erosions. Bone mineraldensity is unremarkable. Visualized soft tissues are normal. IMPRESSION: Mild osteoarthritis of medial knee compartment. Electronically signed in PS360 by: Ayana Kemp M.D. 07/06/2020 12:56 EDT Name Value Range Interpretation Code Description Data Alla e(s) Supporting Document(s) ID Date Data Source [id number] 07/06/2020 01:02:00 PM EDT [facility] DATE OF EXAMINATION: 07/06/2020 12:29 EDT HISTORY: Low back pain TECHNIQUE: 6 views of the lumbar spine were obtained. FINDINGS: No evidence of acute fracture or subluxation. Lumbar alignment is normal withnormal lordosis. Disc spaces and vertebral body heights are maintained. Noaggressive osseous lesions or erosions. Bone mineral density is unremarkable.Sacroiliac joints appear normal. Visualized soft tissues are normal. IMPRESSION: No evidence of acute fracture or subluxation of the lumbar spine. Electronically signed in PS360 by: Ayana Kemp M.D. 07/06/2020 12:56 EDT Name Value Range Interpretation Code Description Data Alla rce(s) Supporting Document(s) ID Date Data Source [id number] 07/07/2020 12:05:00 PM EDT [facility] Name Value Range Interpretation Code Description Data Alla rce(s) Supporting Document(s) TRAVIS Direct Negative Negative [facility] ID Date Data Source [id number] 07/07/2020 04:05:00 PM EDT [facility] Name Value Range Interpretation Code Description Data Alla rce(s) Supporting Document(s) Lyme IgG/IgM Ab 0.00-0.90 [facility] Negative <0.91 Equivocal 0.91 - 1.09 Positive >1.09 ID Date Data Source [id number] 07/12/2020 04:05:00 PM EDT [facility] Name Value Range Interpretation Code Description Data Alla rce(s) Supporting Document(s) HLA-B27 Negative [facility] HLA-B*27 [id number] allele interpretati on for all loci based on IMGT/HLAdatabase version 3.38This test was developed and its performance characteristicsdetermined by [facility]. It has not been cleared or approvedby the Food and Drug Administration.[facility] CLIA ID Number [id number] This test was performed using PCR (Polymerase Chain Reaction)/SSOP(Sequence Specific Oligonucleotide Probes) technique. SBT (SequenceBased Typing) and/or SSP (Sequence Specific Primers) may be used assupplemental methods when necessary. Please contact HLA CustomerService at if you have any questions. Director of HLA Laboratory Dr Jose L Mai, PhD ID Date Data Source [id number] 07/06/2020 01:50:00 PM EDT [facility] Name Value Range Interpretation Code Description Data Alla rce(s) Supporting Document(s) ERYTHROCYTE SEDIMENTATION RATE 35 mm/hr 0-20 H [facility] ID Date Data Source [id number] 07/06/2020 12:30:00 PM EDT [facility] Name Value Range Interpretation Code Description Data Alla rce(s) Supporting Document(s) WHITE BLOOD COUNT 6.7 K/mm3 4.0-10.0 [facility] al RED BLOOD COUNT 4.08 M/mm3 4.00-5.50 [facility] HEMOGLOBIN 11.5 gm/dL 12.0-16.0 [facility] HEMATOCRIT 33.9 % 36.0-48.8 [facility] MEAN CELL VOLUME 83.1 fl 80-96 [facility] MEAN CORPUSCULAR HEMOGLOBIN 28.2 pg 27.0-31.0 [facility] MEAN CORPUSCULAR HGB CONC 33.9 g/dl 32.0-36.0 [facility] RED CELL DISTRIBUTION WIDTH 13.5 % 10.0-14.5 [facility] PLATELET COUNT 420 K/mm3 172-450 [facility] ID Date Data Source [id number] 07/06/2020 01:23:00 PM [facility] l Name Value Range Interpretation Code Description Data Alla rce(s) Supporting Document(s) FREE T4 0.7 ng/dL 0.76-1.46 [facility] ID Date Data Source [id number] 07/06/2020 01:23:00 PM [facility] Name Value Range Interpretation Code Description Data Alla rce(s) Supporting Document(s) TSH 3.819 uIU/mL 0.360-3.740 H [facility] ID Date Data Source [id number] 07/06/2020 01:05:00 PM [facility] l Name Value Range Interpretation Code Description Data Alla rce(s) Supporting Document(s) C REACTIVE PROTEIN 3.5 mg/L 0.0-3.[address] [facility] magalys ID Date Data Source [id number] 07/06/2020 01:05:00 PM [facility] l Name Value Range Interpretation Code Description Data Alla rce(s) Supporting Document(s) CHOLESTEROL 236 mg/dL 0-200 H [facility] TRIGLYCERIDES 51 mg/dL 0-150 [facility] LDL CHOLESTEROL 186 mg/dL 0-100 [facility] HDL CHOLESTEROL 40 mg/dL 40-60 [facility] CHOL/HDL RATIO 5.9 0.0-5.0 H [facility] ID Date Data Source [id number] 07/06/2020 01:05:00 PM [facility] l Name Value Range Interpretation Code Description Data Alla rce(s) Supporting Document(s) GLUCOSE 88 mg/dL 74-106 [facility] BLOOD UREA NITROGEN 14 mg/dL 7-18 [facility] ital CREATININE 0.72 mg/dL 0.6-1.0 [facility] SODIUM 144 mmol/L 136-145 [facility] POTASSIUM 4.0 mmol/L 3.5-5.1 [facility] CHLORIDE 107 mmol/L 98-107 [facility] CO2 25 mmol/L 21-32 [facility] CALCIUM 8.6 mg/dL 8.5-10.1 [facility] ANION GAP 12.0 mmol/L 5-12 [facility] GLOMERULAR FILTRATION RATE 88 mL/min [facility] GFR IS CALCULATED IN mL/min/1.73m2 RAJIV L FUNCTION: >90MILDLY DECREASED: 60-89MILDY TO MODERATELY DECREASED: 45-59 MODERATELY TO SEVERELY DECREASED: 30-44SEVERELY DECREASED: 15-29RENAL FAILURE: <15 AST 13 U/L 15-37 [facility] ALT 25 U/L 12-78 [facility] ALKALINE PHOSPHATASE 91 U/L 46-116 [facility] pital TOTAL BILIRUBIN 0.5 mg/dL 0.2-1.0 [facility] TOTAL PROTEIN 6.9 g/dl 6.4-8.2 [facility] ALBUMIN 3.5 gm/dL 3.4-5.0 [facility] ID Date Data Source [id number] 07/06/2020 01:02:00 PM [facility] Name Value Range Interpretation Code Description Data Alla rce(s) Supporting Document(s) RHEUMATOID FACTOR SCREEN NEGATIVE NEGATIVE [facility] ID Date Data Source [id number] 07/07/2020 12:05:00 PM [facility] l Name Value Range Interpretation Code Description Data Alla rce(s) Supporting Document(s) TRAVIS DIRECT Negative Negative [facility] Performed at: RN - [facility] [place] [id number] Director: Trudy Mckinley MD, Phone: [phone] ID Date Data Source [id number] 07/07/2020 04:05:00 PM [facility] al Name Value Range Interpretation Code Description Data Alla rce(s) Supporting Document(s) LYME IGG/IGM AB <0.91 ISR 0.00-0.90 [facility] Negative <0.91 Equivocal 0.91 - 1.09 Positive > 1.09Performed at: KARELY - [facility] [address] [id number] Director: Trudy Mckinley MD, Phone: [phone] ID Date Data Source [id number] 07/12/2020 04:05:00 PM EDT [facility] Name Value Range Interpretation Code Description Data Alla rce(s) Supporting Document(s) HLA B27 DISEASE ASSOCIATION Negative . [facility] HLA-B*27 [id number] allele interpretati on for all loci based on IMGT/HLAdatabase version 3.38This test was developed and its performance characteristicsdetermined by [facility]. It has not been cleared or approvedby the Food and Drug Administration.[facility] CLIA ID Number [id number] test was performed using PCR (Polymerase ChainReaction)/SSOP (Sequence Specific Oligonucleotide Probes)technique. SBT (Sequence Based Typing) and/or SSP(Sequence Specific Primers) may be used as supplementalmethods when necessary. Please contact [facility] CustomerService at if you have any questions. Director of HLA Laboratory Dr Jose L Mai, PhDPerformed at: [address] [place] [address] [id number] [place], [place] [id number] Director: Jose L Mai PhD, Phone: [phone] ID Date Data Source RHEUMATOID FACTOR SCREEN 07/06/2020 12:00:00 AM EDT eCW1 ([facility]) Name Value Range Interpretation Code Description Data Alla rce(s) Supporting Document(s) NEGATIVE NEGATIVE eCW1 (Formerly Named [facility]) ID Date Data Source FREE T4 07/06/2020 12:00:00 AM EDT eCW1 ([facility]) Name Value Range Interpretation Code Description Data Alla rce(s) Supporting Document(s) 0.7 0.76-1.46 FREE T4 eCW1 (Formerly Named [facility]) ID Date Data Source TSH 07/06/2020 12:00:00 AM EDT eCW1 ([facility]) Name Value Range Interpretation Code Description Data Alla rce(s) Supporting Document(s) 3.819 0.360-3.740 TSH eCW1 ([facility]) ID Date Data Source COMPLETE METABOLIC PROLFILE 07/06/2020 12:00:00 AM EDT eCW1 (Formerly Named [facility]) Name Value Range Interpretation Code Description Data Alla rce(s) Supporting Document(s) 88 74-106 eCW1 ([facility]ly [facility]) 14 7-18 eCW1 ([facility]ly [facility]) 144 136-145 eCW1 ([facility]) 0.72 0.6-1.0 eCW1 ([facility]ly [facility]) 107 98-107 eCW1 ([facility]) 4.0 3.5-5.1 eCW1 ([facility]ly [facility]) 25 21-32 eCW1 (Formerly [facility]amed [facility]) 88 eCW1 (Formerly [facility]) 13 15-37 eCW1 ([facility]ly [facility]) 8.6 8.5-10.1 eCW1 ([facility]ly [facility]amed [facility]) 12.0 5-12 eCW1 (Formerly [facility]amed [facility]) 91 46-116 eCW1 ([facility]ly [facility]amed [facility]) 25 12-78 eCW1 ([facility]ly [facility]) 0.5 0.2-1.0 eCW1 ([facility]ly [facility]) 6.9 6.4-8.2 eCW1 ([facility]ly [facility]) 3.5 3.4-5.0 eCW1 (Formerly [facility]amed [facility]) ID Date Data Source CBC 07/06/2020 12:00:00 AM EDT eCW1 ([facility]) Name Value Range Interpretation Code Description Data Alla rce(s) Supporting Document(s) 6.7 4.0-10.0 WHITE BLOOD COUNT eCW1 (Formerly Named [facility]) 11.5 12.0-16.0 HEMOGLOBIN eCW1 ([facility]) 33.9 36.0-48.8 HEMATOCRIT eCW1 ([facility]) 4.08 4.00-5.50 RED BLOOD COUNT eCW1 ([facility]) 28.2 27.0-31.0 MEAN CORPUSCULAR HEMOGLOB IN eCW1 (Formerly Named [facility]) 33.9 32.0-36.0 MEAN CORPUSCULAR HGB CONC eCW1 (Formerly Named [facility]) 83.1 80-96 MEAN CELL VOLUME eCW1 ([facility]) 420 172-450 PLATELET COUNT eCW1 ([facility]) 13.5 10.0-14.5 RED CELL DISTRIBUTION WID TH eCW1 (Formerly Named [facility]) ID Date Data Source LIPID PROFILE 07/06/2020 12:00:00 AM EDT eCW1 ([facility]) Name Value Range Interpretation Code Description Data Alla rce(s) Supporting Document(s) 236 0-200 CHOLESTEROL eCW1 ([facility]) 51 0-150 TRIGLYCERIDES eCW1 ([facility]) Cholesterol in LDL [Mass/volume] in Serum or Plasma by calculation 186 0-100 LDL CHOLESTEROL eCW1 ([facility]ly [facility]) 5.9 0.0-5.0 CHOL/HDL RATIO eCW1 ([facility]) 40 40-60 HDL CHOLESTEROL eCW1 ([facility]) ID Date Data Source [id number] 04/26/2020 11:19:00 PM EST [facility] Name Value Range Interpretation Code Description Data Alla rce(s) Supporting Document(s) BHD COVID-19 RT-PCR CHILD THERAPIST SWAB Not Detected Not Detected [facility] This test has received Emergency Use Aut horization (EUA). We willcontinue to follow federal and state requirements for COVID-19reporting. This test was developed and its performance characteristicsdetermined by [facility]. It has not been cleared orapproved by the U.S. Food and Drug Administration but has been givenemergency use authorization. Results should be used in conjunctionwith clinical findings and should not form the sole basis for adiagnosis or treatment decision. Methods: SARS-CoV-2 Multiplex RT-PCRAssayA not detected (negative) test result for this test means that SARS-CoV-2 RNA was not present in the specimen above the limit ofdetection. Laboratory test results should always be considered in thecontext of clinical observations and epidemiological data in making afinal diagnosis and patient management decisions. Results will bereported to government agencies as required. ID Date Data Source [id number] 04/24/2020 06:00:00 PM EST [facility] Name Value Range Interpretation Code Description Data Alla rce(s) Supporting Document(s) SARS coronavirus 2 RNA [Presence] in Res piratory specimen by JUAN RAMON with probe detection NEGATIVE [facility] and reported by [facility]. ID Date Data Source [id number] 04/24/2020 12:00:00 AM EST [facility] Name Value Range Interpretation Code Description Data Alla rce(s) Supporting Document(s) Carestart Rapid COVID Antigen Test Negative [facility] This lab was reported by [facility] KALPESH Stephania crowley. ID Date Data Source [id number] 02/24/2020 12:00:00 AM EST [facility] Name Value Range Interpretation Code Description Data Alla rce(s) Supporting Document(s) Carestart Rapid COVID Antigen Test Positive [facility] This lab was reported by [facility] Stephania crowley. ID Date Data Source [id number] 01/25/2020 12:00:00 AM EST [facility] Name Value Range Interpretation Code Description Data Alla rce(s) Supporting Document(s) 2019-nCoV RNA XXX JUAN RAMON+probe-Imp [facility] This lab was ordered by [facility] and reported by [employer]. ID Date Data Source URINE CULTURE 11/29/2019 08:06:09 AM EDT eCW1 ([facility]) Name Value Range Interpretation Code Description Data Alla rce(s) Supporting Document(s) URINE CULTURE eCW1 ([facility]) ID Date Data Source Urinalysis, Routine 11/24/2019 12:18:36 PM EDT eCW1 ([facility]) Name Value Range Interpretation Code Description Data Alla rce(s) Supporting Document(s) Specific gravity of Urine 1.005 Specific G ravity eCW1 ([facility]) Appearance of Urine clear Appearance eCW1 ([facility]) Microscopic Examination eCW1 ( [facility]) Color of Urine yellow Urine-Color eCW1 ([facility]) Hemoglobin [Presence] in Urine by Test strip 250 Occult Blood eCW1 ([facility]) Protein [Presence] in Urine by Test strip neg Protein eCW1 ([facility]) Glucose [Presence] in Urine norm Glucose eCW1 ([facility]) pH of Urine by Test strip 7 pH eCW1 ([facility]) Bilirubin.total [Presence] in Urine by Test strip +1 Bilirubin eCW1 ([facility]) Nitrite [Presence] in Urine by Test strip neg Nitrite, Urine eCW1 ([facility]) Urobilinogen [Mass/volume] in Urine by Test strip norm Urobilinogen,Semi-Qn eCW1 ([facility]) Ketones [Presence] in Urine by Test strip neg Ketones eCW1 ([facility]) Leukocyte esterase [Presence] in Urine by Test strip trace WBC Esterase eCW1 ([facility]) Urinalysis Gross Exam eCW1 ([facility]) ID Date Data Source [id number] 11/26/2019 12:31:00 PM EDT [facility] Name Value Range Interpretation Code Description Data Alla rce(s) Supporting Document(s) [facility] Procedure Social History Code Duration Value Status Description Data Source(s ) Smoking 12/28/2020 12:00:00 AM EST Never Smoker completed Never S moker eCW1 ([facility]) Smoking 12/28/2020 12:00:00 AM EST Never Smoker completed Never S moker eCW1 ([facility] [facility]) Smoking 09/14/2020 12:00:00 AM EDT Never Smoker completed Never S moker eCW1 (Formerly [facility]) Smoking 09/01/2020 12:00:00 AM EDT Never Smoker completed Never S moker eCW1 (Formerly [facility]amed [facility]) Smoking 08/17/2020 12:00:00 AM EDT Never Smoker completed Never S moker eCW1 (Formerly [facility]) Smoking 06/30/2020 12:00:00 AM EDT Never Smoker completed Never S moker eCW1 (Formerly [facility]) Smoking 06/30/2020 12:00:00 AM EDT Never Smoker completed Never S moker eCW1 (Formerly [facility]amed [facility]) Smoking 06/30/2020 12:00:00 AM EDT Never Smoker completed Never S moker eCW1 (Formerly [facility]) Smoking 11/24/2019 12:00:00 AM EDT Never Smoker completed Never S moker eCW1 (Formerly [facility]) Smoking 11/24/2019 12:00:00 AM EDT Never Smoker completed Never S moker eCW1 (Formerly [facility]) Smoking 11/24/2019 12:00:00 AM EDT Never Smoker completed Never S moker eCW1 (Formerly [facility]) Smoking 11/24/2019 12:00:00 AM EDT Never Smoker completed Never S moker eCW1 (Formerly [facility]) Vital Signs ID Date Data Source UNK Name Value Range Interpretation Code Description Data Source(s) Body height 68 [in_i] 68 [in_i] eCW1 ([facility]) Body weight 190.4 [lb_av] 190.4 [lb_av] eCW1 ([facility]) Body mass index (BMI) [Ratio] 28.95 kg/m2 28.95 kg/m2 eCW1 ([facility]ly [facility]) Heart rate 77 /min 77 /min eCW1 ([facility]) Respiratory rate 16 /min 16 /min eCW1 ([facility]) Oxygen saturation in Arterial blood by Pulse oximetry 97 % 97 % eCW1 (Formerly [facility]) Body height 68 [in_i] 68 [in_i] eCW1 ([facility]) Body weight 196.8 [lb_av] 196.8 [lb_av] eCW1 ([facility]) Body mass index (BMI) [Ratio] 29.92 kg/m2 29.92 kg/m2 eCW1 (Formerly [facility]) Body temperature 98.4 [degF] 98.4 [degF] eCW1 ( Formerly [facility]) Heart rate 67 /min 67 /min eCW1 ([facility]) Respiratory rate 16 /min 16 /min eCW1 ([facility]) Oxygen saturation in Arterial blood by Pulse oximetry 100 % 100 % eCW1 (Formerly [facility]) Body weight 195.4 [lb_av] 195.4 [lb_av] eCW1 ([facility]) Body height 68 [in_i] 68 [in_i] eCW1 ([facility]) Body mass index (BMI) [Ratio] 29.71 kg/m2 29.71 kg/m2 eCW1 ([facility]ly [facility]) Body temperature 98.7 [degF] 98.7 [degF] eCW1 ( [facility]) Heart rate 77 /min 77 /min eCW1 ([facility]) Respiratory rate 17 /min 17 /min eCW1 ([facility]) Oxygen saturation in Arterial blood by Pulse oximetry 98 % 98 % eCW1 (Formerly [facility]) Body height 68 [in_i] 68 [in_i] eCW1 ([facility]) Body weight 184.4 [lb_av] 184.4 [lb_av] eCW1 ([facility]) Body mass index (BMI) [Ratio] 28.03 kg/m2 28.03 kg/m2 eCW1 ([facility]) Body temperature 98.0 [degF] 98.0 [degF] eCW1 ( Formerly [facility]) Heart rate 71 /min 71 /min eCW1 ([facility]) Respiratory rate 18 /min 18 /min eCW1 ([facility]) Oxygen saturation in Arterial blood by Pulse oximetry 98 % 98 % eCW1 (Formerly [facility]) Patient Treatment Plan of Care Planned Activity Planned Date Details Description Data Source (s) Lisinopril 10 MG Oral Tablet 12/28/2020 12:00:00 AM EST eCW1 (Formerly [facility]) Sertraline 25 MG Oral Tablet 08/17/2020 12:00:00 AM EDT eCW1 (Formerly [facility]) Sertraline 100 MG Oral Tablet [Zoloft] 06/30/2020 12:00:00 AM EDT eCW1 (Formerly [facility]) Sertraline 100 MG Oral Tablet [Zoloft] 06/30/2020 12:00:00 AM EDT eCW1 (Formerly [facility]) Sertraline 100 MG Oral Tablet [Zoloft] 06/30/2020 12:00:00 AM EDT eCW1 (Formerly [facility]) Sertraline 100 MG Oral Tablet [Zoloft] 06/30/2020 12:00:00 AM EDT eCW1 (Formerly [facility]) Ciprofloxacin 500 MG Oral Tablet [Cipro] 11/24/2019 12:00:00 AM EDT eCW1 (Formerly [facility]) Ciprofloxacin 500 MG Oral Tablet [Cipro] 11/24/2019 12:00:00 AM EDT eCW1 (Formerly [facility]) Ciprofloxacin 500 MG Oral Tablet [Cipro] 11/24/2019 12:00:00 AM EDT eCW1 (Formerly [facility]) Ciprofloxacin 500 MG Oral Tablet [Cipro] 11/24/2019 12:00:00 AM EDT eCW1 (Formerly [facility])
[2021-01-19] MEDS ORDERED: KETOROLAC 30 MG/ML 1ML VIAL IV ONE (19:25)
[2021-01-19] MEDS ORDERED: NS 1,000 ML IV ONE (19:25)
--- NOTE | 2021-01-19 19:57 | REP ---
INDICATION: CHEST PAIN. COMPARISON: Comparison chest x-ray July 10, 2020. TECHNIQUE: Portable upright AP chest radiograph. FINDINGS: The lungs are well inflated and free of infiltrate. Pleural angles are sharp. Heart size is normal. Pulmonary vasculature is not increased. No significant bony abnormality. IMPRESSION: No active disease. <Electronically signed by Keith Mendieta > 01/19/211953
[2021-01-19 20:21] LABS: BASO # 0.1 10^3/uL (0.0-0.2); BASO % 0.7 % (0.0-1.0); EOS # 0.1 10^3/uL (0.0-0.5); EOS % 1.4 % (0.0-3.0); HEMOGLOBIN 11.4 g/dl (12.0-15.5); LYMPH # 2.8 10^3/uL (1.5-5.0); LYMPH % 37.4 % (24.0-44.0); MEAN CORPUSCULAR HEMOGLOBIN 28.4 pg (27.0-33.0); MEAN CORPUSCULAR HGB CONC 33.5 g/dl (32.0-36.5); MEAN CORPUSCULAR VOLUME 84.6 fl (80.0-96.0); MONO # 0.6 10^3/uL (0.0-0.8); NEUTROPHILS # 3.8 10^3/uL (1.5-8.5); NEUTROPHILS % 52.1 % (36.0-66.0); PLATELET COUNT, AUTOMATED 403 10^3/uL (150-450); RED BLOOD COUNT 4.02 10^6/uL (4.00-5.40); WHITE BLOOD COUNT 7.4 10^3/uL (4.0-10.0)
--- OUTSIDE RECORDS SUMMARY | 2021-01-19 20:30 | CCD ---
Author Author [facility] Organization [facility] Address Unknown Phone Unavailable Support Name Relationship Address Phone [facility] Next Of Kin [address] [place] [address] Amarilis Parson Next Of Kin [address] [place] [address] KEY BROWN Next Of Kin [address] [place] [address] NONE, NONE Next Of Kin Unknown SISTERSJOS Next Of Kin [address] [place] [address] [facility] Next Of Kin [address] [place] [address] [facility] Next Of Kin [address] [place] [address] Pro BAUTISTA Next Of Kin [address] [place] [address] [employer] Next [place] Kin [place] [address] [place] [address] Unavailable [employer] Next Of Kin [phone] [address] UNEMPLOYED Next Of Kin [address] [place] [address] [employer] Next Of Kin [phone] [address] UE Next Of Kin Unknown Unavailable [facility] Next Of Kin [address] [place] [address] BON BAUTISTA Next Of Kin [address] [place] [address] Kye Brown ECON [address] [facility] [address] [place] [address] Juan Mcguire ECON [address] [place] [address] Unavailable Key Brown ECON [address] [place] [address] Unavailable Care Team Providers Care Cobol Application Developer Name Role Phone Lorenza Tejada MD Unavailable [...] RONN BAR RPA-C Unavailable Unavailable THOMPSON, RONN BRA RPA-C Unavailable Unavailable Ebonie, M Chantelle PA-C [...] Chantelle PA-C Unavailable Unavailable James Casey Unavailable [phone] James Casey Unavailable [phone] James Casey Unavailable [phone] James Casey Unavailable [phone] James Casey Unavailable [phone] James Casey Unavailable [phone] Holtman, T Pedro DO Unavailable Unavailable Holtman, [...] of the [facility] Public Health law. If you continue you may have access to information: Regarding HIV / AIDS; Provided by facilities licensed or operated by the [facility] Office of Mental Health; or Provided by the [facility] Office for People With Developmental Disabilities. If such information is present, then the following [facility] mandated warning applies: This information has been [...] law may result in a fine or skilled nursing sentence or both. A general authorization for the release of medical or other information is NOT sufficient authorization for further disc losure. Family History Family Member Name Family Member Gender Family Member Status Date o f Status Description Data Source(s) Unknown Unknown Problem [facility] ([facility]) Encounters Encounter Providers Location Date Indications Data Source(s ) Outpatient [facility] 01/17/2021 12:00:00 AM EST eCW1 ([facility]) Emergency Attender: ISAIAS TEJADA MDA tender: Isaias Tejada MDReferrer: Pedro Mosley DO A-ERMADULT 01/15/2021 11:45:00 PM EST - 01/16/2021 04:43:00 AM [facility] Patient discharged. Outpatient Attender: Chantelle Loomis PA-C 12/28/2020 09:09 :00 AM EST [facility] Outpatient [facility] 12/28/2020 12:00:00 AM EST eCW1 ([facility]) Outpatient 11/29/2020 07:49:24 PM EDT - 021 08:58:18 PM EDT [facility] ([facility]) Outpatient [facility] 10/06/2020 12:00:00 AM EDT eCW1 ([facility]) Outpatient Attender: James Casey 09/28 03:40:45 PM EDT - 09/28/2020 05:12:31 PM EDT [facility] ([facility] ) Outpatient Attender: Hermila Tena 09/01/2020 11:00:00 AM EDT [facility] Outpatient [facility] 08/31/2020 12:00:00 AM EDT eCW1 ([facility]) Preadmit Attender: Chantelle Loomis PA-C 08/28/2020 04:00 :00 PM EDT [facility] Outpatient Attender: David CONDON 021 05:35:06 PM EDT - 08/24/2020 06:14:49 PM EDT [facility] ([facility] ) Outpatient Attender: KATE VAZQUEZ PA-C 08/17/2020 12:06:00 PM EDT [facility] Outpatient Attender: Chantelle Loomis PA-C 08/17/2020 10:26 :00 AM EDT [facility] Admission cancelled. Disregard status an d admitted date. Outpatient Attender: Chantelle Grayferrer: Chantelle Loomis PA-C [facility] 08/17/2020 08:59:00 AM EDT - 08/17/2020 08:59:00 AM EDT [facility] Outpatient [facility] 08/17/2020 12:00:00 AM EDT eCW1 ([facility]) Outpatient [facility] 07/13/2020 12:00:00 AM EDT eCW1 ([facility]) Outpatient Attender: Chantelle Grayferrer: Chantelle Loomis PA-C EMERGENCY ROOM-[facility] 07/06/2020 12:15:00 PM EDT - 07/06/2020 12:15:00 PM EDT [facility] Outpatient Attender: Chantelle Loomis PA-C 06/30/2020 07:59 :00 AM EDT [facility] Outpatient [facility] 06/30/2020 12:00:00 AM EDT eCW1 ([facility]) Outpatient [facility] 06/30/2020 12:00:00 AM EDT eCW1 ([facility]) Outpatient Attender: Sasha CONDON 021 05:42:54 PM EST - 04/24/2020 06:18:01 PM EST [facility] ([facility] ) Outpatient [facility] 01/17/2020 12:00:00 AM EST eCW1 ([facility]) Outpatient [facility] 12/02/2019 12:00:00 AM EDT eCW1 ([facility]) Outpatient [facility] 11/29/2019 12:00:00 AM EDT eCW1 ([facility]) Outpatient Attender: Chantelle GARCIAonsultant: [facility] AS-MOO-ZTVSB 11/24/2019 11:10:00 AM [facility] Outpatient Attender: Chanetlle Loomis PA-C [facility] 11/24/2019 12:00:00 AM EDT [facility] ([facility]) Outpatient Attender: Chantelle Loomis PA-C 11/04/2019 09:57 :00 AM [facility] Outpatient Attender: Chantelle Loomis PA-C 10/21/2019 10:06 :00 AM [facility] Outpatient Attender: Chantelle Grayferrer: Chantelle Loomis PA-C EMERGENCY ROOM-[facility] 10/07/2019 03:47:00 PM EDT - 10/07/2019 03:47:00 PM [facility] Outpatient Attender: Chantelle Loomis PA-C 10/07/2019 02:47 :00 PM [facility] Outpatient Attender: BAR DAVILACReferrer: BAR CRUZ 11/10/2018 01:50:00 PM EDT - 11/10/2018 01:50:00 PM [facility] pitva Medications Medication Brand Name Start Date Product Form Dose Route Admi nistrative Instructions Pharmacy Instructions Status Indications Reaction Description Data Source(s) iohexol (OMNIPAQUE) 350 MG/ML contrast injection 175 mL 2805 8 01/16/2021 12:15:00 AM EST 175 mL Given by IV completed 175 mL, Given by IV, 1 TIME IMAGING, On Fri01/16/21 at 0015, For 1 dose [facility] Medication administered onsite Lisinopril 10 MG Oral Tablet Lisinopril 10 MG 12/28/2020 12:00:00 A M EST 1.0 {tablet} active Lisinopril 10 MG eCW1 ( [facility]) Lisinopril 10 MG Oral Tablet Lisinopril 10 MG 12/28/2020 12:00:00 A M EST 1.0 {tablet} active Lisinopril 10 MG eCW1 ( [facility]) Sertraline 25 MG Oral Tablet Sertraline HCl 25 MG Sertraline HCl 25 MG 08/17/2020 12:00:00 AM EDT active Sertraline HCl 25 MG eCW1 ([facility]) Sertraline 100 MG Oral Tablet Sertraline HCl 100 MG Sertrali ne HCl 100 MG 08/17/2020 12:00:00 AM EDT active Sertraline HCl 100 MG eCW1 ([facility]) Sertraline 25 MG Oral Tablet Sertraline HCl 25 MG Sertraline HCl 25 MG 08/17/2020 12:00:00 AM EDT active Sertraline HCl 25 MG eCW1 ([facility]) Sertraline 25 MG Oral Tablet Sertraline HCl 25 MG Sertraline HCl 25 MG 08/17/2020 12:00:00 AM EDT active Sertraline HCl 25 MG eCW1 ([facility]) Sertraline 25 MG Oral Tablet [Zoloft] Zoloft 25 MG Zoloft 25 MG 08/17/2020 12:00:00 AM EDT active Zoloft 2 5 MG eCW1 ([facility]) Sertraline 25 MG Oral Tablet Sertraline HCl 25 MG Sertraline HCl 25 MG 08/17/2020 12:00:00 AM EDT active Sertraline HCl 25 MG eCW1 ([facility]) Sertraline 100 MG Oral Tablet [Zoloft] Zoloft 100 MG Zoloft 100 MG 06/30/2020 12:00:00 AM EDT 1.0 {tablet} active Zo loft 100 MG eCW1 ([facility]) Sertraline 100 MG Oral Tablet [Zoloft] Zoloft 100 MG Zoloft 100 MG 06/30/2020 12:00:00 AM EDT 1.0 {tablet} active Zo loft 100 MG eCW1 ([facility]) Sertraline 100 MG Oral Tablet [Zoloft] Zoloft 100 MG Zoloft 100 MG 06/30/2020 12:00:00 AM EDT 1.0 {tablet} active Zo loft 100 MG eCW1 ([facility]) Sertraline 100 MG Oral Tablet [Zoloft] Zoloft 100 MG Zoloft 100 MG 06/30/2020 12:00:00 AM EDT 1.0 {tablet} active Zo loft 100 MG eCW1 ([facility]) Sertraline 100 MG Oral Tablet [Zoloft] Zoloft 100 MG Zoloft 100 MG 06/30/2020 12:00:00 AM EDT 1.0 {tablet} active Zo loft 100 MG eCW1 ([facility]) Sertraline 100 MG Oral Tablet [Zoloft] Zoloft 100 MG Zoloft 100 MG 06/30/2020 12:00:00 AM EDT 1.0 {tablet} active Zo loft 100 MG eCW1 ([facility]) Sertraline 100 MG Oral Tablet [Zoloft] Zoloft 100 MG Zoloft 100 MG 06/30/2020 12:00:00 AM EDT 1.0 {tablet} active eCW1 ([facility]) Sertraline 100 MG Oral Tablet [Zoloft] Zoloft 100 MG Zoloft 100 MG 06/30/2020 12:00:00 AM EDT 1.0 {tablet} active Zo loft 100 MG eCW1 ([facility]) Ciprofloxacin 500 MG Oral Tablet [Cipro] Cipro 500 MG Cipro 500 MG 11/24/2019 12:00:00 AM EDT 1.0 {tablet} active Ci pro 500 MG eCW1 ([facility]) Ciprofloxacin 500 MG Oral Tablet [Cipro] Cipro 500 MG Cipro 500 MG 11/24/2019 12:00:00 AM EDT 1.0 {tablet} active Ci pro 500 MG eCW1 ([facility]) Ciprofloxacin 500 MG Oral Tablet [Cipro] Cipro 500 MG Cipro 500 MG 11/24/2019 12:00:00 AM EDT 1.0 {tablet} active Ci pro 500 MG eCW1 ([facility]) Ciprofloxacin 500 MG Oral Tablet [Cipro] Cipro 500 MG Cipro 500 MG 11/24/2019 12:00:00 AM EDT 1.0 {tablet} active Ci pro 500 MG eCW1 ([facility]) Insurance Providers Payer name Policy type / Coverage type Policy ID Covered democrat ID Covered democrat's relationship to lee Policy Lee Plan Information Medicaid [place] Medigap Part B [id number] Self [id number] [employer] Workers Compensation [id number] [employer] Workers Compensation [id number] [employer] ([place]) Workers Compensation [id number] [employer] ([employer]) Workers Compensation [id number] MEDICAID [id number] Jessica [id number] [employer] COMMUNITY PLAN MCDHMO [id number] SP [id number] UNHC COMMUNITY PLAN MCDHMO [id number] SP [id number] UNHC COMMUNITY PLAN MCDHMO [id number] SP [id number] MEDICAID [id number] SP [id number] UNHC COMMUNITY PLAN MCDHMO [id number] SP [id number] UNHC COMMUNITY PLAN MCDHMO [id number] SP [id number] UNHC COMMUNITY PLAN MCDHMO [id number] SP [id number] [facility] Community Plan Commercial [id number] Self [id number] [facility] Community Plan Commercial [id number] Self [id number] [facility] Community Plan Commercial [id number] Self [id number] [facility] Community Plan Commercial [id number] Self [id number] [facility] MEDICAID [id number] S [id number] [facility] LTV STEEL [id number] S [id number] [facility] LTV STEEL [id number] S [id number] [facility] Commercial Insurance Co. [id number] Self [id number] Medicaid Medicaid [id number] Self [id number] [facility] I [id number] Self [id number] [facility] I [id number] Self [id number] [facility] Commercial Insurance Co. [id number] Self [id number] [facility] Commercial Insurance Co. [id number] Self [id number] ANSI-Medicaid [id number] ANSI-Medicaid [id number] ANSI-Medicaid [id number] ANSI-Medicaid [id number] ANSI-Medicaid [id number] ANSI-Medicaid [id number] [facility] [place] [place] Health Maintenance Organization (O) [id number] Self [id number] [facility] [id number] ANSI-Medicaid [id number] ANSI-Medicaid [id number] ANSI-Medicaid [id number] ANSI-Medicaid [id number] ANSI-Medicaid [id number] ANSI-Medicaid [id number] [facility] [id number] SP [id number] UN COMMUNITY PLAN MCDO [id number] SP [id number] MEDICAID [id number] SP [id number] [facility] [id number] SP [id number] Medicaid [place] Medicaid [id number] Self [id number] [facility] Medigap Part B [id number] Self [id number] Medicaid [place] Medicaid [id number] Self [id number] [employer] COMMUNITY PLAN MCDO [id number] SP [id number] [facility] Chris/[facility] Health Maintenance Organization (HMO) [id number] Self [id number] [facility] Chris/[facility] Health Maintenance Organization (HMO) [id number] Self [employer] [place] [id number] SP [id number] [employer] [place] O [id number] S [id number] [facility] [place] O [id number] S [id number] [facility] [place] [id number] SP [id number] BLUE [employer] PLAN [id number] SP [id number] O BLUE [id number] SP [id number] UNHC COMMUNITY PLAN [facility] [id number] SP [id number] [facility] MEDICAID [id number] S [id number] UNHC FB [id number] S [id number] [employer]UR[employer] CO [id number] SP [id number] [facility] [id number] SP [id number] SELF PAY ONLY [id number] [facility](MCAID) O [id number] S [id number] [facility](MCAID) O [id number] S [id number] [facility] O [id number] S [id number] [facility] [id number] S [id number] [facility] LTV STEEL [id number] S [id number] [facility] SP [facility] [id number] SP [id number] MEDICAID [id number] S [id number] [facility] LTV STEEL [id number] S [id number] UNHC OX[place] CHOICE PLUS [id number] SP [id number] [facility] [id number] SP [id number] [facility] MEDICAID [id number] S [id number] [place] [id number] S [id number] [facility](MCAID) O [id number] S [id number] [facility] [id number] [facility]-Medicaid [id number] ANSI-Medicaid [id number] ANSI-Medicaid [id number] ANSI-Medicaid [id number] ANSI-Medicaid [id number] Problems, Conditions, and Diagnoses Code Display Name Description Problem Type Effective Dates Data Source(s) F41.1 Generalized anxiety disorder GENERALIZED ANXIETY DISOR DAMON Diagnosis 09/01/2020 11:00:00 AM [facility] F33.2 Major depressive disorder, 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 MAJOR DEPRESSV DISORDER, RECURRENT SEVERE W/O PSYCH FEATURES Diagnosis 09/01/2020 11:00:00 AM [facility] Z13.21 Encounter for screening for nutritional disorder ENCOUNTER FOR SCREENING FOR NUTRITIONAL DISORDER Diagnosis 08/17/2020 08:59:00 AM [facility] spital R03.0 Elevated blood-pressure reading, without diagnosis of hypertension ELEVATED BLOOD-PRESSURE READING, W/O DIAGNOSIS OF Diagnosis 02/2020 08:59:00 AM [facility] F41.8 Other specified anxiety disorders OTHER SPECIFIE D ANXIETY DISORDERS Diagnosis 08/17/2020 08:59:00 AM [facility] M17.11 Unilateral primary osteoarthritis, right knee UNILATERAL PRIMARY OSTEOARTHRITIS, RIGHT KNEE Diagnosis 07/06/2020 12:15:00 PM [facility] Z13.828 Encounter for screening for other muscul oskeletal disorder ENCOUNTER FOR SCREENING FOR OTHER MUSCUL Diagnosis 07/06/2020 12:15:00 PM [facility] M19.90 Unspecified osteoarthritis, unspecified site UNSPECIFIED OSTEOARTHRITIS, UNSPECIFIED Diagnosis 07/06/2020 12:15:00 PM [facility] Z86.39 Personal history of other endocrine, nut ritional and metabolic disease PERSONAL HISTORY OF ENDO, NUTRITIONAL AN Diagnosis 07/06/2020 12:15:00 PM [facility] M25.511 Pain in right shoulder PAIN IN RIGHT SHOULDER Diagnosi s 07/06/2020 12:15:00 PM [facility] M25.561 Pain in right knee PAIN IN RIGHT KNEE Diagnosis 12:15:00 PM [facility] M54.2 Cervicalgia CERVICALGIA Diagnosis 07/06/2020 12:15:00 PM [facility] M54.5 Low back pain LOW BACK PAIN Diagnosis 07/06/2020 12:15:00 PM [facility] E78.2 Mixed hyperlipidemia MIXED HYPERLIPIDEMIA Diagnosis 07/06/2020 12:15:00 PM [facility] Z68.29 Body mass index (BMI) 29.0-29.9, adult B KENRICK MASS INDEX [BMI] 29.0-29.9, ADULT Diagnosis 06/30/2020 07:59:00 AM [facility] E66.3 Overweight OVERWEIGHT Diagnosis 06/30/2020 07:59:00 AM [facility] Z71.89 Other specified counseling OTHER SPECIFIED COUNSELING Diagnosis 06/30/2020 07:59:00 AM [facility] K21.9 Gastro-esophageal reflux disease without esophagitis GASTRO-ESOPHAGEAL REFLUX DISEASE WITHOUT ESOPHAGIT Diagnosis 06/30/2020 07:59:00 AM [facility] Z00.00 Encounter for general adult medical examination without abnormal findings ENCNTR FOR GENERAL ADULT MEDICAL EXAM W/O ABNORMAL FINDINGS Diagnosis 06/30/2020 07:59:00 AM [facility] M54.6 Pain in thoracic spine PAIN IN THORACIC SPINE Diagnosi s 11/24/2019 10:50:00 AM [facility] N30.01 Acute cystitis with hematuria ACUTE CYSTITIS WITH MEGHAN TURIA Diagnosis 11/24/2019 10:50:00 AM [facility] R35.0 Frequency of micturition FREQUENCY OF MICTURITION Diag nosis 11/24/2019 10:50:00 AM EDT [facility] Z86.39 [id number] History of hyperglycemia Problem 12/28/2020 12:00:00 AM EST eCW1 ([facility]) I10 [id number] Essential hypertension Problem 12/28/2020 12 :00:00 AM EST eCW1 ([facility]) E04.1 [id number] Thyroid nodule Problem 12/28/2020 12:00:00 A M EST eCW1 ([facility]) F33.2 [id number] Severe episode of re current major depressive disorder, without psychotic features Problem 09/11/2020 12:00:00 AM EDT eCW1 ([facility]) F41.1 [id number] Generalized anxiety disorder Problem 021 12:00:00 AM EDT eCW1 ([facility]) E78.2 [id number] Mixed hyperlipidemia Problem 06/30/2020 12:0 0:00 AM EDT eCW1 ([facility]) Z86.39 H/O: thyroid disorder History of thyroid nodule Proble m 06/30/2020 12:00:00 AM EDT eCW1 ([facility]) M19.90 8137585 Arthritis Problem 06/30/2020 12:00:00 AM ED T eCW1 ([facility]) Surgeries/Procedures Procedure Description Date Indications Data Source(s) DRUGS OF ABUSE, URINE <td>DRUGS OF ABUSE, URINE</t d><td>STAT</td><td>01/16/2021 12:51 AM EST</td><td></td><td> </td> 01/16/2021 12:51:00 AM [facility] URNLS DIP STICK/TABLET REAGENT AUTO MICROSCOPY <td>URI NALYSIS WITH MICROSCOPIC</td><td>STAT</td><td>01/16/2021 12:51 AM EST</td><td></td><td> </td> 01/16/2021 12:51:[address] [facility] [address] ANGIO ABD&PLVIS CNTRST MTRL W/WO CNTRST IMGES <td>C T ANGIOGRAPHY ABDOMEN AND PELVIS 00397</td><td>STAT</td><td>01/16/2021 12:47 AM EST</td><td></td><td> </td> 01/16/2021 12:47:[address] [facility] [address] ANGIOGRAPHY CHEST W/CONTRAST/NONCONTRAST <td>CT ANG IOGRAPHY THORAX 63880</td><td>STAT</td><td>01/16/2021 12:47 AM EST</td><td></td><td> </td> 01/16/2021 12:47:28 AM [facility] EKG 12-LEAD - CMAXX REPORT <td>EKG 12-LEAD - CMAXX REPORT</td><td></td><td>01/16/2021 12:31 AM EST</td><td></td><td></td> 01/16/2021 12:31:57 AM [facility] EKG 12-LEAD <td>EKG 12-LEAD</td><td>STAT </td><td>01/16/2021 12:31 AM EST</td><td></td><td></td> 01/16/2021 12:31:57 AM EST [facility] CT ANGIOGRAPHY NECK W/CONTRAST/NONCONTRAST <td>CT JAMILA OGRAPHY NECK 43550</td><td>CODE</td><td>01/16/2021 12:30 AM EST</td><td></td><td></td> 01/16/2021 12:30:00 AM EST [facility] CT ANGIOGRAPHY HEAD W/CONTRAST/NONCONTRAST <td>CT JAMILA OGRAPHY HEAD 46663</td><td>CODE</td><td>01/16/2021 12:30 AM EST</td><td></td><td></td> 01/16/2021 12:30:00 AM [facility] RESPIRATORY PATHOGEN PANEL <td>RESPIRATORY PATHOGEN PANEL</td><td>Routine</td><td>01/16/2021 12:10 AM EST</td><td></td><td> </td> 01/16/2021 12:10:00 AM [facility] COVID-19 PCR <td>COVID-19 PCR</td><td>Rou liz</td><td>01/16/2021 12:10 AM EST</td><td></td><td> </td> 01/16/2021 12:10:00 AM [facility] POCT ISTAT VBG/LAC <td>POCT ISTAT VBG/LAC</td>< td>Routine</td><td>01/16/2021 12:08 AM EST</td><td></td><td> </td> 01/16/2021 12:08:00 AM [facility] TROPONIN T HIGH SENSITIVITY <td>TROPONIN T HIGH SENSITIVITY</td><td>STAT</td><td>01/16/2021 12:07 AM EST</td><td></td><td> </td> 01/16/2021 12:07:00 AM [facility] PROTHROMBIN TIME <td>PROTIME INR</td><td>STAT </td><td>01/16/2021 12:07 AM EST</td><td></td><td> </td> 01/16/2021 12:07:00 AM [facility] BLOOD COUNT COMPLETE AUTO&AUTO DIFRNTL WBC COUNT <td>C BC AND DIFFERENTIAL</td><td>Routine</td><td>01/16/2021 12:07 AM EST</td><td></td><td> </td> 01/16/2021 12:07:00 AM [facility] BLOOD TYPING ABO <td>TYPE AND SCREEN</td><td> STAT</td><td>01/16/2021 12:07 AM EST</td><td></td><td> </td> 01/16/2021 12:07:00 AM [facility] THYROID STIMULATING HORMONE TSH <td>TSH</td><td>Routin e</td><td>01/16/2021 12:07 AM EST</td><td></td><td> </td> 01/16/2021 12:07:00 AM [facility] THYROXINE FREE <td>T4, FREE</td><td>Routine </td><td>01/16/2021 12:07 AM EST</td><td></td><td> </td> 01/16/2021 12:07:00 AM [facility] PHOSPHORUS INORGANIC <td>PHOSPHORUS LEVEL</td><td >STAT</td><td>01/16/2021 12:07 AM EST</td><td></td><td> </td> 01/16/2021 12:07:00 AM [facility] MAGNESIUM <td>MAGNESIUM LEVEL</td><td> STAT</td><td>01/16/2021 12:07 AM EST</td><td></td><td> </td> 01/16/2021 12:07:00 AM [facility] HEPATIC FUNCTION PANEL <td>HEPATIC FUNCTION PANEL A</td><td>STAT</td><td>01/16/2021 12:07 AM EST</td><td></td><td> </td> 01/16/2021 12:07:00 AM [facility] LIPID PANEL <td>LIPID PANEL</td><td>Rout ine</td><td>01/16/2021 12:07 AM EST</td><td></td><td> </td> 01/16/2021 12:07:00 AM [facility] BASIC METABOLIC PANEL CALCIUM TOTAL <td>BASIC METABOLI C PANEL</td><td>STAT</td><td>01/16/2021 12:07 AM EST</td><td></td><td> </td> 01/16/2021 12:07:[address] [facility] [address] HEAD/BRAIN W/O CONTRAST MATERIAL <td>CT HEAD STROKE</td><td>CODE</td><td>01/15/2021 11:58 PM EST</td><td></td><td></td> 01/15/2021 11:58:48 PM [facility] ECG ROUTINE ECG W/LEAST 12 LDS W/I&R 12/28/2020 12:00: 00 AM EST eCW1 ([facility]) Results ID Date Data Source [id number] 01/18/2021 07:19:45 PM [facility] Name Value Range Interpretation Code Description Data Alla rce(s) Supporting Document(s) ED Provider Note [facility] STBEEc7vRnNJMcBo11/PEYzfLYWqj3MfMYuxVTe6CRsvRHGhE2FbIYT3oD3iPXZ4ZRmFXvGcZmEgFbGp lbm [file] AgICAgICAgICAgICAgICAgICAgICAgICAgICAgICAgICAgICAgICAgICAgICAgICAgICAgICAgICAgIC YuQBXwRDMqVHKcMKLhZMStYHMnBBHjAR2WVQRwRHYjOFGhZKQwJOQrKORaJHXpSVNdDNAoDEPdSPHsMA AgICAgICAgICAgICAgICAgICAgICAgICAgICAgICAg RAFlBMMeLFHdSLZjXEVzYZNnJSNnIPVuEBHdFPSdDLUkWQ7IZPMaRQEwAIJwSHEkSBUqLHSqBSOkNNUb ICAgICAgICAgICAgICAgICAgICAgICAgICAgICAgICAgICAgICAgICAgICAgICAgICAgICAgICAgICAg PNVlQWJlELQjJBUmRHBrXR9SGCNoJAKzRZYpPGEeTW AgICAgICAgICAgICAgICAgICAgICAgICAgICAgICAgICAgICAgICAgICAgICAgICAgICAgICAgICAgIC CdYNMaYFRtKGBjCFOcKQJqQNCgFDCyPGJxRQ3MBQXdJEHlWEHxUIWxXMDiWGEfMHWpERIeCFYiTRPgLV AgICAgICAgICAgICAgICAgICAgICAgICAgICAgICAg FJPmNOJdLOOyXEGkXDFuJGMkRKSbCCVlYXPpLFCiTZWnNFZrQD3JTQEmUOBwURStFGQlKBKaPKKqHKVg ICAgICAgICAgICAgICAgICAgICAgICAgICAgICAgICAgICAgICAgICAgICAgICAgICAgICAgICAgICAg VSBhJCThIOXbZLZfYAHvTYRvLI1UWDPjZAKqQEXpCC AgICAgICAgICAgICAgICAgICAgICAgICAgICAgICAgICAgICAgICAgICAgICAgICAgICAgICAgICAgIC FyDOGbFHWeVALaYQReMELbZKBaGOQiLCQtTKDkKS1NRWPhIFAnIMIoITGjJJNrXNZySWYqWOJlWGAzFD AgICAgICAgICAgICAgICAgICAgICAgICAgICAgICAg PBFdULFuTMWcRYGnVGHyPJSyYQRsXRNdWOPnZDJkKWBzMFOuZMHhCA4XVTIoTWNaLTZoDUXfCDMkTARt ICAgICAgICAgICAgICAgICAgICAgICAgICAgICAgICAgICAgICAgICAgICAgICAgICAgICAgICAgICAg UPNmCMOuCOUoNQQiWWHxTNMmJNQkNI2LNYTtIVKlBP AgICAgICAgICAgICAgICAgICAgICAgICAgICAgICAgICAgICAgICAgICAgICAgICAgICAgICAgICAgIC CqYEOxLKWyGTUtZOIgVPUyISHzYZZmWIUyUBVxKBIdVE2DWC02aTYdb9M5BTExGC9iihf/Aq6EHBylvc SunPJpFZ6YEyZbOH7nzc4SOrSaMO8kpn2XSDeHQpLr W5Z8zXTwKAIlNVYXMcEnK63qVUwhVe54SQfzPCLoOtDvCOh6Fe7PXyOsS6ytZFTkRoJ1RIJaAiW4KBRj FaF7IVUqOpZrORUwEWNaDAErICCOOKM5QTCwWoXyVcDaDLKwFL0OAZNsM407cpHePt8QRk7HClEiGE5i fq3HYhItJXViOtxKKsb5FCdfPN8UcSYdeQDwNFDuDI STMnZsJ5ltf3WzKfckRUQGVVczDK1Va0UfwJZfOJs+Um7AVF0cw1DmYRiqLGKiKG0xqh8KITbCQlLjC3 WvgXqqDCKQYYVzu6PcSFTxSU8moYHlEZF4ULSuxz0dtsLtJWQOc5t2uHPcGDCUFfBhwUSbDV2qKJ1uUT MpCRTzIkDqIGQTZI7SRELtAJShqMKmEUKsCLQVOX8Q FKlcVPN4TvUohoKskNBvCNokHW9RMTPypqYuSqZlDEAPGHgfZZ9GWMn9HON8NJPtAk1GJj9UIjFmGG8r qd6CToIvNEYrVdtHFtb5KMvxHE9TgUFxJZkXFRCMvv08oGDggfOOj9SioiHdbPKMRHJlLQRjYNKyVV5i nH1nqipoGU1jOEUzLISoEhOlLqBwWLApObkaHlOWHP jSUnJtZ0Sqh7AxOeZmHAXpPJEuY1eHVvAsDRZ5FKCxdEgyDY2KWxBtW5KhlgXcvSJjNIRbWDZSWhDrP9 KfCMOuVcHmEBAAVLcoOE6QZGp3YVX9SUQjOn9ARj5MVbDoVS5ktz6CSrlzXPLlTeuONoj0EWwaVW6LrK UtRYwNROEAm3IgrdIzwKRQHQ2fiFERSDYfA74mNXSD VhIpvMXlXH0mPV4vOMVjAKYoIqA7MNBYUI0GWXVoNFTdsKYdUQW7DPSoWwEhCVfhBWLrNlykED00wOwt BF7WJUExRMZcKQ61BHO2KVReAr2MIZLbIEEsztTwIuOnJLPEAa4+MSoculSxXfzLHiL5HISlh0LtTNa9 KS0EBIZjMAjgSZ9SBHOlgX4mQIfaVP0IBrVdBvXwJP QCXnQbP27lyGLuOAx9N3WlSyUkIJRiFcxnBAGgYQnsKwWwZKIuMwVnFGkcLL4+ID4+LRwjGP6HVNkmah ZeBENvIo2LXEDfIDWbRJ6wLQCiYUZyZ9O7yLgySSXJDxOuM6scrixcSD7mACPsJ636rYziuzJgKSH4LS HyKn0VGIUhCUS9WBFuuGEcIoRlLLYCTSprCC7FdXKo AWN8zM0sYZoaVMBnEOLzQ3wHOgPeoDlzXG43pZippeCbgLUdVHw+Ug0HJW2ed7VqSVp3isXbBMqcSHJ9 WTzlVEWuSEJcPCPsJQE7DBT9ZSAZBsDwOPPfOUVfYMkkNIQpMHGtch9IYXPbTXUqDUI1HBCzQNSbSCRn OLprDSUjEEGkMJvtRSDsKDHzMJ3BBmTiJLPfGSIiOH ehACZmTRVcxk8AZISuRGIeQjW0HWGtKALxNRMqWUimNAMpLWNhQIflIAEaNGFhGP0KYvToUEIwWPA0Og ptINKrNOOjqi8HUUNbIEJcYdUkKDYcFDLiCNGlHUhyAMAuAJXoPsB8LGPcGAQsEU8PXnCvAUVwRYV5Ac WlPHIqGSVqsm9SPGVxBMPrJlUlIWFlBZHwZJPxAGii WFBfHOJdYDB7WGLfVIQxEJ4QXmBfUMUwTTT7RDJbOVDwUJOqat0ZPSKuNAHvRdJ2CZRoQUNnUDWnPPlj TQJyRUC4CxKhZTJgVIPrXD1BGdPvXYWrYUy3WJwwVXQvWMQmmx1DPRQxJSDsIaclDQJrVADcSWAaMSeq QRZsJPJkVQOxCYMxMTSeSE0XJbRaLHGbNdEtPwBaYY UwQBFxif2OZPQiYEBwQDY1KwPhEQYzTJNeWPkiJWSbALI2MWSnUPSbZXRxFQ1LBaTiRJHhIrQ7EKhaTS VhNMLlsc6LAQHnLRWaMXJrJYJoJKVgPAOxLJqwNWTiEEA2Qge3FSOkAQEnND0IOyFmNWNeEqA9VAsoXG DpTVMzau0PEYSkYLXvRzs9NbHpMCYaGBYnGRonQOAo PFR4PLE7MOAqTIWaYE1ZDkXfNMPhMhc6VuMhIPTzHKGedy8HOCFvJTCcITd7RsZsOAIqTYRuBHvaCXEu GOS4QMInCGBiPJUrCD2ZMeZsJAMaDpguVFSmACDeRIJxax3SAYFyWDRzHDQlGySiQNYiCDPhBOwqMGVa FJA4LTGnRPNwULPuPD6XMhZlRWKeULNhVqYlBGFzON Vdhl3ACNYmSSO5ZUSgOfHsBRMrGKPmYJikNDMnASNsQOb4EMYdLOIzII7MRfMyUCWsLRK1UbXtVJAkLH Yutb4UISInFIW4HTakDdUsCHCqGAKcQQi7goDkbVVdUAx2RA3XT3BnasYhHosODp4Ax522ZCS8KADbRf 6ZA8osHy1vWPMxKMBPTp1QSDq2BXXfSCY1DXG6DVIf BdIhLhMwIkU0GYDiYXf2YPOpCYV+YDxtWvPdHsObUGZtEMF7UyNhFpRmOhL0FoSuOlB3StL1Xb0nNWQT Cj4+WKzvxECpcOelIMXGYgMqVTO2ONnlCKPIGn5B ID Date Data Source [id number] 01/16/2021 09:54:48 AM [facility] Hospital Name Value Range Interpretation Code Description Data Alla rce(s) Supporting Document(s) [facility] RRQIQo8hXcOTHkJcv8JpLhQcWGBrRJ7tcsb3D9U9kPNhY1PtfPJtz6zrK0PnB4NlJSEqOXNCUI8LvPRr jb2 [file] /FLcq53XnKh/tool distributor+tZ/sgdg7Qvt+Yz51IAvdDcH1cY+ci6wET0A6lqb9Ra/j+0wfEbibj32W+gfaHejP [file] T289t6c0pD5702/b/03TGuB7/xq99+fHx8/va3r0Z+ +cj73mrPN9343Hhzb/V6ssD1B/nWuntoRcKD/bavvvntdx+f/+lfvv+nX/+V2+4/1Q3kV51+87NfffXF M22x8Gdur/Xlxz9//O9f/PDpu4+vvvmHT5+/+qekn2zjjhbTr3/l+aKP+s23r5t+8/nTl99+vwEd2d4/ 4/Pb9BW820/8/Rs392917nvHE5gQ6goxz/iXj19+in t+8+3ro1+em1r4J5pyhO/9uQcqkLg4m+woez0m2tIAaq+++A7f8MwsG3+//P7j7z6++MdPLxH+6tOL8e nGgQ28P3y2LIz59Am/+fTlV//w+qwlFzS06gnrDsO/+iX5v/NKDSX9781+9utvv/nHT7/6+Ofvv/zpfT r18V0mer8m92t/+Ybeb7NImRShub+++kuLBj64r/v4 9meuzwl8p98+/ffbUKAQlU7LO//pP37/lz/++O8f/8f/+vjh93/4w+/+8pcff/eHv/v41e/+9Psf//Dx r/+jzH/9248//+n15M/u2bH9MRbrzV0zyE3heo2hWm457Hh/8Y8//0++j46Y7YC13C/6Cso4VeZ5/Hb9 0/2L7m3pTbq306dpeegj3P+e4v70lbQ8v1SSuiP+/o rvOEpk8qKdmj8nHlQCGdk9o/j843/8+MUPDv7rwHzF4+zdcbp5s05/+vbr73/8tspp3tnG7jtV0w/vBy YtwLhu3PM5Iky++KySejtYZwLzGWI0a9R//Pin//r7j7/87r9+eRw04tX/iNQ/901/GMtlr8fnfs+09s C5qtrE3//zl871t//o3nqe0J+BvlcfbT+31XkrE1e/ /vzdx7//z1fbf//scheduler conveyor/20+i568hqKHxHP44+///k/f/2b3Jn3Hbeh0b3od97Fieb816lxhNY+7jyGY2g8 vEPudRP2kDCV16hmwo7W2z+/+39//M//DkLawpe1b/47P81r+r3+bf/rL//6tz+5+/TDP/z4x9/94a2H 1xv/y9/9z3/73X/+/nd/+b70LYF3/Oc///EXP+GeBn /953/3aWzbwd2VcWA38j/+2//1p9//2+lQm2r139EE/eTejTMS9/3us11Van//8cpxmjTo9+3WGlWX7r /87v/88aN8/Pk/Pcg897e6cQP0p9dw1j/38anHkGlk2NlpszrlkDU51Z/5+nd8+hyt8li3Dzl7/Pjiyy +//d33x0na26F5Y8rR65N/Q8uraCKTTQ1lz2CkUXLx DrOyBM1xkzcoQBKyTA2hdny9P9KinEqhCPkLYCZdMe7udFXeWM6OEVN4NClqGODfVMLuU2RidQ3oT75k eQJiKkMoYSUUFE9CbxL7ZYH4YXF7THBvCrLpFYAbIK53FQPgCQEZGy9neqUtSkgJSsYkML4yuxn0I5G1 yXXlD085yNjoriFzHR9Tj5KrzFAzBJ1AoORlsJFbVI HwAQElS7nvq3GhCCswEVGDQn9ukoKfKxbKXdFpRI3tdju7Q0C8zYzrqsVhPZIKGFsyKlywHW3svMmaur tkC5FxlRZmRUXxP6OiPXXem80UKFMuVHtZCvAoSiXbFCBeBYf6ZBfbWvBhYPVdCEAjYOXwZO0FkJVkCH BzLZVCIHspUmmzFRPkaV1mtTVQx6BoPFIITKnPTDRF TTpWSQO4FKS1IQYdORPpL1RmonKrwYCzTGEZGJvqHofqYLYogQ4xrLqqC2LxGZQ3g0GwHC5BG5YpDTWi OLTOFIW8j2QwCZBgbrcjikzdMeBtAPWtIVXvHADpTG4May2tsRPyoyKdXAGDNNueZqjyNF7avJjrlnwd R2NeaSQzKRQ+SvIeTD9cke5+RpKvORVfAiu8LKPxXM eeFKQwCLAuEQUpW4taJBMiMaFiDBKfLaGzOW1Fc7YvyLDrVo9iixJoJxjNmNAiFmpiUTYyHAJvBUGeBq FLWQUkLDHpNWLcATN0VHPvTHGpGBsbQNKdTRoyOAC2LTGzCTCnRM7zRdVwZMHzYyJ1LkKdPFRvYUXmic TVLZLvSFV7YjX1PYYdDBPhPTEvVXqqWQWvWVTwXITm RLL7NUA1WWCdDnJaDVCuVALeFNDvQMItGMXnneQZLSLtIHNpQPG8NWQyCJPnWXLwTUcpQOUhZUGxIXnq YDXqBDErKP0wThKfNKRuSUDkWJwvFFPrFGSaezVAEAWjYZUaARPgGEThEOHaDWQqVAumAPZdRKAaQIFe PXPqFLCaTH6pMfKnSKBhTPB6OZQsNDQyNWQdvwUHXH HmPTLiBEk7XOTvFQWnIYIqPOpcHNBzDWDhAEI7UWMsRHVnZI4pNnCbAIMiCRP3NbXnZZRmGQWecoTLOG AgJIToPNR0XsKyKBFjSRLzJTzsLIGxYUIqLOoiMMStWXTlWU8qPbOdDSGsCNPqPTgxSRPfZRJinjVUCQ JdRZAmTUXfTxEkROBbICGkKRivIPKdFHxfCUU1VAIp HNMgAJ2sVsUlPKZhBZN3CLkoFNGhBZEjevJHSLSvSZElWJotQZMjTIMfYTWkWOohGHQuFGBaSRS3TIGv FMOdPR3dQmNeMNGzULKyWTYtRoG5KcDaTaBBhKBzwPnvbla7WHsxT0e5TRMpUPzsYW7xrfEkKTSfNdaj Eu4fjCI3LEDvHxsGVd4Mv5WijoD2jaNcXysjGAD3AkWdLE0A ID Date Data Source [id number] 01/16/2021 07:50:20 AM [facility] CT HEAD STROKEFINAL RESULTInterpreted by :Amanda Carlson [...] rce(s) Supporting Document(s) ID Date Data Source [id number] 01/16/2021 07:36:39 AM [facility] CT ANGIOGRAPHY HEAD [id number] RESULTInt erpreted by:Amar Swarnkar, MBBSZaid Dilia, DOINDICATION: [...] prior lacunar infarcts.2. Major arteries of the [place] are patent.3. Bilateral internal carotid arteries are patent without significant stenosis.Findings were discussed with Bethany Chacon MD, over the phone at 12:49 AM on 01/16/[address] Dobbs.This document has been electronically signed by KELSIE Carlson on 01/16/2021 7:34 AM Name Value Range Interpretation Code Description Data Alla e(s) Supporting Document(s) ID Date Data Source [id number] 01/16/2021 07:36:39 AM [facility] CT ANGIOGRAPHY NECK [id number] RESULTInt erpreted by:Amanda Carlson DOINDICATION: Stroke follow-up.TECHNIQUE: [...] prior lacunar infarcts.2. Major arteries of [place] are patent.3. Bilateral internal carotid arteries are patent without significant stenosis.Findings were discussed with Bethany Chacon MD, over the phone at 12:49 AM on 01/16/[address] Dobbs.This document has been electronically signed by KELSIE Carlson on 01/16/2021 7:34 AM Name Value Range Interpretation Code Description Data Alla rce(s) Supporting Document(s) ID Date Data Source [id number] 01/16/2021 01:02:08 AM [facility] Name Value Range Interpretation Code Description Data [facility] rce(s) Supporting Document(s) Bicarbonate [Moles/volume] in Serum 19 mmol/L 22-29 L [facility] Chloride [Moles/volume] in Serum or Plasma 103 mmol/L 98-107 [facility] Creatinine [Mass/volume] in Serum or Plasma 0.70 mg/dL 0.50-0.90 [facility] Glucose [Mass/volume] in Serum or Plasma 108 mg/dL 70-140 [facility] Potassium [Moles/volume] in Serum or Plasma 3.4 mmol/L 3.4-5.1 [facility] Sodium [Moles/volume] in Serum or Plasma 134 mmol/L 136-145 L [facility] Urea nitrogen [Mass/volume] in Serum or Plasma 10 mg/dL 6-20 [facility] QA FLAGS AND/OR RANGES MODIFIED BY TargetCast NetworksOG RAPHIC UPDATE ON 01/16 AT 0310 Anion gap 3 in Serum or Plasma 12 mmol/L 8-15 [facility] Osmolality of Serum or Plasma by calculation 278 mosm/kg 275-300 [facility] Creatinine/Urea nitrogen [Mass Ratio] in Serum or Plasma 14 [facility] Calcium [Mass/volume] in Serum or Plasma 9.2 mg/dL 8.6-10.0 [facility] QA FLAGS AND/OR RANGES MODIFIED BY DEMOG RAPHIC UPDATE ON 01/16 AT 0310 Glomerular filtration rate/1.73 sq M pre dicted among non-blacks [Volume Rate/Area] in Serum or Plasma by Creatinine-based formula (MDRD) >6 0 [facility] Glomerular filtration rate/1.73 sq M pre dicted among blacks [Volume Rate/Area] in Serum or Plasma by Creatinine-based formula (MDRD) >60 [facility] ID Date Data Source [id number] 01/16/2021 01:02:08 AM [facility] Name Value Range Interpretation Code Description Data Alla rce(s) Supporting Document(s) Magnesium [Mass/volume] in Serum or Plasma 2.0 mg/dL 1.6-2.6 [facility] QA FLAGS AND/OR RANGES MODIFIED BY DEM RAPHIC UPDATE ON 01/16 AT 0310 ID Date Data Source [id number] 11/29/2020 08:00:00 PM EDT [facility] Name Value Range Interpretation Code Description Data Alla rce(s) Supporting Document(s) SARS-CoV-2 RNA Resp Ql JUAN RAMON+probe NOT DETECTED [facility] This lab was ordered by JAQUELIN gongora and reported by JAQUELIN Amin. ID Date Data Source [id number] 09/28/2020 05:00:00 PM EDT [facility] Name Value Range Interpretation Code Description Data Alla rce(s) Supporting Document(s) SARS-CoV-2 RNA Resp Ql JUAN RAMON+probe NOT DETECTED [facility] This lab was ordered by JAQUELIN gongora and reported by JAQUELIN Amin. ID Date Data Source [id number] 08/18/2020 06:10:00 AM EDT [facility] Name Value Range Interpretation Code Description Data Alla rce(s) Supporting Document(s) VITAMIN D, 25-HYDROXY 25.2 ng/mL 30.0-100.0 [facility] Vitamin D deficiency has been defined by the [employer] and an Endocrine Society practice guideline as alevel of serum 25-OH vitamin D less than 20 ng/mL (1,2).The Endocrine Society went on to further define vitamin Dinsufficiency as a level between 21 and 29 ng/mL (2).1. IOM ([employer]). 2010. Dietary reference intakes for calcium and D. [place]: The National Academies Press.2. Bita MF, Ray CALL, Hayder GUERRERO, et al. Evaluation, treatment, and prevention of vitamin D deficiency: an Endocrine Society clinical practice guideline. JCEM. 2010; 96(7):1911- 30.Performed at: RN - [facility] [address] [id number] Director: Trudy Mckinley MD, Phone: [phone] ID Date Data Source [id number] 08/18/2020 06:05:00 AM EDT [facility] Name Value Range Interpretation Code Description Data Alla rce(s) Supporting Document(s) Vitamin D, 25-Hydroxy 25.2 ng/mL 30.0-100.0 Below low normal [facility] Vitamin D deficiency has been defined by the [employer] and an Endocrine Society practice guideline as alevel of serum 25-OH vitamin D less than 20 ng/mL (1,2).The Endocrine Society went on to further define vitamin Dinsufficiency as a level between 21 and 29 ng/mL (2).1. IOM ([employer]). 2010. Dietary reference intakes for calcium and D. [place]: The National Academies Press.2. Bita MF, Ray [place], Hayder GUERRERO, et al. Evaluation, treatment, and prevention of vitamin D deficiency: an Endocrine Society clinical practice guideline. JCEM. 2010; 96(7):1911-30. ID Date Data Source VITAMIN D, 25-HYDROXY 08/17/2020 12:00:00 AM EDT eCW1 ([facility]) Name Value Range Interpretation Code Description Data [facility] rce(s) Supporting Document(s) 25.2 30.0-100.0 VITAMIN D, 25-HYDROXY eCW 1 ([facility]) ID Date Data Source [id number] 07/06/2020 01:03:00 PM EDT [facility] DATE OF EXAMINATION: 07/06/2020 12:29 EDT [...] rce(s) Supporting Document(s) ID Date Data Source [id number] 07/06/2020 01:02:00 PM EDT [facility] [...] e(s) Supporting Document(s) ID Date Data Source [id number] 07/06/2020 01:02:00 PM [facility]T [facility] [...] e(s) Supporting Document(s) ID Date Data Source [id number] 07/06/2020 01:02:00 PM [facility]T [facility] [...] rce(s) Supporting Document(s) ID Date Data Source [id number] 07/07/2020 12:05:00 PM EDT [facility] Name Value Range Interpretation Code Description Data Alla rce(s) Supporting Document(s) TRAVIS Direct Negative Negative [facility] ID Date Data Source [id number] 07/07/2020 04:05:00 PM EDT [facility] Name Value Range Interpretation Code Description Data Alla rce(s) Supporting Document(s) Lyme IgG/IgM Ab 0.00-0.90 [facility] Negative <0.91 Equivocal 0.91 - 1.09 Positive >1.09 ID Date Data Source [id number] 07/12/2020 04:05:00 PM EDT [facility] Name Value Range Interpretation Code Description Data Alla rce(s) Supporting Document(s) HLA-B27 Negative [facility] HLA-B*27 NodlixepQ48 allele interpretati on for all loci based on IMGT/HLAdatabase version 3.38This test was developed and its performance characteristicsdetermined by [facility]. It has not been cleared or approvedby the Food and Drug Administration.[facility] CLIA ID Number [id number] This test was performed using PCR (Polymerase Chain Reaction)/SSOP(Sequence Specific Oligonucleotide Probes) technique. SBT (SequenceBased Typing) and/or SSP (Sequence Specific Primers) may be used assupplemental methods when necessary. Please contact [facility] CustomerService at if you have any questions. Director of [facility] Dr Jose L Mai, PhD ID Date Data Source [id number] 07/06/2020 01:50:00 PM EDT [facility] Name Value Range Interpretation Code Description Data Alla rce(s) Supporting Document(s) ERYTHROCYTE SEDIMENTATION RATE 35 mm/hr 0-20 [facility] ID Date Data Source [id number] 07/06/2020 12:30:00 PM EDT [facility] Name Value Range Interpretation Code Description Data Alla rce(s) Supporting Document(s) WHITE BLOOD COUNT 6.7 K/mm3 4.0-10.0 [facility] al RED BLOOD COUNT 4.08 M/mm3 4.00-5.50 [facility] HEMOGLOBIN 11.5 gm/dL 12.0-16.0 [facility] HEMATOCRIT 33.9 % 36.0-48.8 [facility] MEAN CELL VOLUME 83.1 fl 80-96 [facility] MEAN CORPUSCULAR HEMOGLOBIN 28.2 pg 27.0-31.0 [facility] MEAN CORPUSCULAR HGB CONC 33.9 g/dl 32.0-36.0 [facility] RED CELL DISTRIBUTION WIDTH 13.5 % 10.0-14.5 [facility] PLATELET COUNT 420 K/mm3 172-450 [facility] ID Date Data Source [id number] 07/06/2020 01:23:00 PM [facility] Name Value Range Interpretation Code Description Data Alla rce(s) Supporting Document(s) FREE T4 0.7 ng/dL 0.76-1.46 [facility] ID Date Data Source [id number] 07/06/2020 01:23:00 PM [facility] Name Value Range Interpretation Code Description Data Alla rce(s) Supporting Document(s) TSH 3.819 uIU/mL 0.360-3.740 [facility] ID Date Data Source [id number] 07/06/2020 01:05:00 PM [facility] Name Value Range Interpretation Code Description Data Alla rce(s) Supporting Document(s) C REACTIVE PROTEIN 3.5 mg/L 0.0-3.0 [facility] magalys ID Date Data Source [id number] 07/06/2020 01:05:00 PM [facility] Name Value Range Interpretation Code Description Data Alla rce(s) Supporting Document(s) CHOLESTEROL 236 mg/dL 0-200 [facility] TRIGLYCERIDES 51 mg/dL 0-150 [facility] LDL CHOLESTEROL 186 mg/dL 0-100 [facility] HDL CHOLESTEROL 40 mg/dL 40-60 [facility] CHOL/HDL RATIO 5.9 0.0-5.0 [facility] ID Date Data Source [id number] 07/06/2020 01:05:00 PM [facility] Name Value Range Interpretation Code Description Data Alla rce(s) Supporting Document(s) GLUCOSE 88 mg/dL 74-106 [facility] BLOOD UREA NITROGEN 14 mg/dL 7-[address] [facility] ital CREATININE 0.72 mg/dL 0.6-1.0 [facility] SODIUM 144 mmol/L 136-145 [facility] POTASSIUM 4.0 mmol/L 3.5-5.1 [facility] CHLORIDE 107 mmol/L 98-107 [facility] CO2 25 mmol/L 21-32 [facility] CALCIUM 8.6 mg/dL 8.5-10.1 [facility] ANION GAP 12.0 mmol/L 5-12 [facility] GLOMERULAR FILTRATION RATE 88 mL/min [facility] GFR IS CALCULATED IN mL/min/1.73m2 RAJIV L FUNCTION: >90MILDLY DECREASED: 60-89MILDY TO MODERATELY DECREASED: 45-59 MODERATELY TO SEVERELY DECREASED: 30-44SEVERELY DECREASED: 15-29RENAL FAILURE: <15 AST 13 U/L 15-37 [facility] ALT 25 U/L 12-78 [facility] ALKALINE PHOSPHATASE 91 U/L 46-116 [facility] pital TOTAL BILIRUBIN 0.5 mg/dL 0.2-1.0 [facility] TOTAL PROTEIN 6.9 g/dl 6.4-8.2 [facility] ALBUMIN 3.5 gm/dL 3.4-5.0 [facility] ID Date Data Source [id number] 07/06/2020 01:02:00 PM [facility] l Name Value Range Interpretation Code Description Data Alla rce(s) Supporting Document(s) RHEUMATOID FACTOR SCREEN NEGATIVE NEGATIVE [facility] ID Date Data Source [id number] 07/07/2020 12:05:00 PM [facility] l Name Value Range Interpretation Code Description Data Alla rce(s) Supporting Document(s) TRAVIS DIRECT Negative Negative [facility] Performed at: RN - [facility] [place] [id number] Director: Trudy Mckinley MD, Phone: [phone] ID Date Data Source [id number] 07/07/2020 04:05:00 PM [facility] al Name Value Range Interpretation Code Description Data Alla rce(s) Supporting Document(s) LYME IGG/IGM AB <0.91 ISR 0.00-0.90 [facility] Negative <0.91 Equivocal 0.91 - 1.09 Positive > 1.09Performed at: KARELY - [facility] [address] [id number] Director: Trudy Mckinley MD, Phone: [phone] ID Date Data Source [id number] 07/12/2020 04:05:00 PM EDT [facility] l Name Value Range Interpretation Code Description Data Alla rce(s) Supporting Document(s) HLA B27 DISEASE [employer]ATION Negative . [facility] HLA-B*27 ThlpyggnN27 allele interpretati on for all loci based on IMGT/HLAdatabase version 3.38This test was developed and its performance characteristicsdetermined by [facility]. It has not been cleared or approvedby the Food and Drug Administration.[facility] CLIA ID Number [id number] test was performed using PCR (Polymerase ChainReaction)/SSOP (Sequence Specific Oligonucleotide Probes)technique. SBT (Sequence Based Typing) and/or SSP(Sequence Specific Primers) may be used as supplementalmethods when necessary. Please contact [facility] CustomerService at if you have any questions. Director of [facility] Laboratory Dr Jose L Mai, PhDPerformed at: [address] [place] [address] [id number] [place], [place] [id number] Director: Jose L Mai PhD, Phone: [phone] ID Date Data Source RHEUMATOID FACTOR SCREEN 07/06/2020 12:00:00 AM EDT eCW1 ([facility]) Name Value Range Interpretation Code Description Data Alla rce(s) Supporting Document(s) NEGATIVE NEGATIVE eCW1 ([facility]) ID Date Data Source FREE T4 07/06/2020 12:00:00 AM EDT eCW1 ([facility]) Name Value Range Interpretation Code Description Data Alla rce(s) Supporting Document(s) 0.7 0.76-1.46 FREE T4 eCW1 ([facility]) ID Date Data Source TSH 07/06/2020 12:00:00 AM EDT eCW1 ([facility]) Name Value Range Interpretation Code Description Data Alla rce(s) Supporting Document(s) 3.819 0.360-3.740 TSH eCW1 ([facility]) ID Date Data Source COMPLETE METABOLIC PROLFILE 07/06/2020 12:00:00 AM EDT eCW1 ([facility]) Name Value Range Interpretation Code Description Data Alla rce(s) Supporting Document(s) 88 74-106 eCW1 ([facility]) 14 7-18 eCW1 ([facility]) 144 136-145 eCW1 ([facility]) 0.72 0.6-1.0 eCW1 ([facility]) 107 98-107 eCW1 ([facility]) 4.0 3.5-5.1 eCW1 ([facility]) 25 21-32 eCW1 ([facility]) 88 eCW1 ([facility]) 13 15-37 eCW1 ([facility]) 8.6 8.5-10.1 eCW1 ([facility]) 12.0 5-12 eCW1 ([facility]) 91 46-116 eCW1 ([facility]) 25 12-78 eCW1 ([facility]) 0.5 0.2-1.0 eCW1 ([facility]) 6.9 6.4-8.2 eCW1 ([facility]) 3.5 3.4-5.0 eCW1 ([facility]) ID Date Data Source CBC 07/06/2020 12:00:00 AM EDT eCW1 ([facility]) Name Value Range Interpretation Code Description Data Alla rce(s) Supporting Document(s) 6.7 4.0-10.0 WHITE BLOOD COUNT eCW1 ([facility]) 11.5 12.0-16.0 HEMOGLOBIN eCW1 ([facility]) 33.9 36.0-48.8 HEMATOCRIT eCW1 ([facility]) 4.08 4.00-5.50 RED BLOOD COUNT eCW1 ([facility]) 28.2 27.0-31.0 MEAN CORPUSCULAR HEMOGLOB IN eCW1 ([facility]) 33.9 32.0-36.0 MEAN CORPUSCULAR HGB CONC eCW1 ([facility]) 83.1 80-96 MEAN CELL VOLUME eCW1 ([facility]) 420 172-450 PLATELET COUNT eCW1 ([facility]) 13.5 10.0-14.5 RED CELL DISTRIBUTION WID TH eCW1 ([facility]) ID Date Data Source LIPID PROFILE 07/06/2020 12:00:00 AM EDT eCW1 ([facility]) Name Value Range Interpretation Code Description Data Alla rce(s) Supporting Document(s) 236 0-200 CHOLESTEROL eCW1 ([facility]) 51 0-150 TRIGLYCERIDES eCW1 ([facility]) Cholesterol in LDL [Mass/volume] in Serum or Plasma by calculation 186 0-100 LDL CHOLESTEROL eCW1 ([facility]) 5.9 0.0-5.0 CHOL/HDL RATIO eCW1 ([facility]) 40 40-60 HDL CHOLESTEROL eCW1 ([facility]) ID Date Data Source [id number] 04/26/2020 11:19:00 PM EST [email or web address] Name Value Range Interpretation Code Description Data Alla rce(s) Supporting Document(s) BHD COVID-19 RT-PCR TELEGRAPH [employer]ANT [employer]INTAINER SWAB Not Detected Not Detected [email or web address] This test has received Emergency Use Aut horization (EUA). We willcontinue to follow federal and state requirements for COVID-19reporting. This test was developed and its performance characteristicsdetermined by [employer]. It has not been cleared orapproved by [...] agencies as required. ID Date Data Source [id number] 04/24/2020 06:00:00 PM EST [facility] Name Value Range Interpretation Code Description Data Alla rce(s) Supporting Document(s) SARS coronavirus 2 RNA [Presence] in Res piratory specimen by JUAN RAMON with probe detection NEGATIVE [facility] and reported by [employer]. ID Date Data Source [id number] 04/24/2020 12:00:00 AM EST [facility] Name Value Range Interpretation Code Description Data Alla rce(s) Supporting Document(s) Carestart Rapid COVID Antigen Test Negative [facility] This lab was reported by [facility] Stephania crowley. ID Date Data Source [id number] 02/24/2020 12:00:00 AM EST [facility] Name Value Range Interpretation Code Description Data Alla rce(s) Supporting Document(s) Carestart Rapid COVID Antigen Test Positive [facility] This lab was reported by [facility] Stephania crowley. ID Date Data Source [id number] 01/25/2020 12:00:00 AM EST [facility] Name Value Range Interpretation Code Description Data Alla rce(s) Supporting Document(s) 2019-nCoV RNA XXX JUAN RAMON+probe-Imp [facility] This lab was ordered by [facility] and reported by [employer]. ID Date Data Source URINE CULTURE 11/29/2019 08:06:09 AM EDT eCW1 ([facility]) Name Value Range Interpretation Code Description Data Alla rce(s) Supporting Document(s) URINE CULTURE eCW1 ([facility]) ID Date Data Source Urinalysis, Routine 11/24/2019 12:18:36 PM EDT eCW1 ([facility]) Name Value Range Interpretation Code Description Data Alla rce(s) Supporting Document(s) Specific gravity of Urine 1.005 Specific G ravity eCW1 ([facility]) Appearance of Urine clear Appearance eCW1 ([facility]) Microscopic Examination eCW1 ( [facility]) Color of Urine yellow Urine-Color eCW1 ([facility]) Hemoglobin [Presence] in Urine by Test strip 250 Occult Blood eCW1 ([facility]) Protein [Presence] in Urine by Test strip neg Protein eCW1 ([facility]) Glucose [Presence] in Urine norm Glucose eCW1 ([facility]) pH of Urine by Test strip 7 pH eCW1 ([facility]) Bilirubin.total [Presence] in Urine by Test strip +1 Bilirubin eCW1 ([facility]) Nitrite [Presence] in Urine by Test strip neg Nitrite, Urine eCW1 ([facility]) Urobilinogen [Mass/volume] in Urine by Test strip norm Urobilinogen,Semi-Qn eCW1 ([facility]) Ketones [Presence] in Urine by Test strip neg Ketones eCW1 ([facility]) Leukocyte esterase [Presence] in Urine by Test strip trace WBC Esterase eCW1 ([facility]) Urinalysis Gross Exam eCW1 ([facility]) ID Date Data Source [id number] 11/26/2019 12:31:00 PM EDT [facility] Name Value Range Interpretation Code Description Data Alla rce(s) Supporting Document(s) [facility] Procedure Social History Code Duration Value Status Description Data Source(s ) Smoking 12/28/2020 12:00:00 AM EST Never Smoker completed Never S moker eCW1 ([facility]) Smoking 12/28/2020 12:00:00 AM EST Never Smoker completed Never S moker eCW1 ([facility]) Smoking 09/14/2020 12:00:00 AM EDT Never Smoker completed Never S moker eCW1 ([facility]) Smoking 09/01/2020 12:00:00 AM EDT Never Smoker completed Never S moker eCW1 ([facility]) Smoking 08/17/2020 12:00:00 AM EDT Never Smoker completed Never S moker eCW1 ([facility]) Smoking 06/30/2020 12:00:00 AM EDT Never Smoker completed Never S moker eCW1 ([facility]) Smoking 06/30/2020 12:00:00 AM EDT Never Smoker completed Never S moker eCW1 ([facility]) Smoking 06/30/2020 12:00:00 AM EDT Never Smoker completed Never S moker eCW1 ([facility]) Smoking 11/24/2019 12:00:00 AM EDT Never Smoker completed Never S moker eCW1 ([facility]) Smoking 11/24/2019 12:00:00 AM EDT Never Smoker completed Never S moker eCW1 ([facility]) Smoking 11/24/2019 12:00:00 AM EDT Never Smoker completed Never S moker eCW1 ([facility]) Smoking 11/24/2019 12:00:00 AM EDT Never Smoker completed Never S moker eCW1 ([facility]) Vital Signs ID Date Data Source UNK Name Value Range Interpretation Code Description Data Source(s) Body height 68 [in_i] 68 [in_i] eCW1 ([facility]) Body weight 190.4 [lb_av] 190.4 [lb_av] eCW1 ([facility]) Body mass index (BMI) [Ratio] 28.95 kg/m2 28.95 kg/m2 eCW1 ([facility]) Heart rate 77 /min 77 /min eCW1 ([facility]) Respiratory rate 16 /min 16 /min eCW1 ([facility]) Oxygen saturation in Arterial blood by Pulse oximetry 97 % 97 % eCW1 ([facility]) Body height 68 [in_i] 68 [in_i] eCW1 ([facility]) Body weight 196.8 [lb_av] 196.8 [lb_av] eCW1 ([facility]) Body mass index (BMI) [Ratio] 29.92 kg/m2 29.92 kg/m2 eCW1 ([facility]) Body temperature 98.4 [degF] 98.4 [degF] eCW1 ( [facility]) Heart rate 67 /min 67 /min eCW1 ([facility]) Respiratory rate 16 /min 16 /min eCW1 ([facility]) Oxygen saturation in Arterial blood by Pulse oximetry 100 % 100 % eCW1 ([facility]) Body weight 195.4 [lb_av] 195.4 [lb_av] eCW1 ([facility]) Body height 68 [in_i] 68 [in_i] eCW1 ([facility]) Body mass index (BMI) [Ratio] 29.71 kg/m2 29.71 kg/m2 eCW1 ([facility]) Body temperature 98.7 [degF] 98.7 [degF] eCW1 ( [facility]) Heart rate 77 /min 77 /min eCW1 ([facility]) Respiratory rate 17 /min 17 /min eCW1 ([facility]) Oxygen saturation in Arterial blood by Pulse oximetry 98 % 98 % eCW1 ([facility]) Body temperature 98.0 [degF] 98.0 [degF] eCW1 ( [facility]) Body height 68 [in_i] 68 [in_i] eCW1 ([facility]) Heart rate 71 /min 71 /min eCW1 ([facility]) Body weight 184.4 [lb_av] 184.4 [lb_av] eCW1 ([facility]) Body mass index (BMI) [Ratio] 28.03 kg/m2 28.03 kg/m2 eCW1 ([facility]) Respiratory rate 18 /min 18 /min eCW1 ([facility]) Oxygen saturation in Arterial blood by Pulse oximetry 98 % 98 % eCW1 ([facility]) Patient Treatment Plan of Care Planned Activity Planned Date Details Description Data Source (s) Lisinopril 10 MG Oral Tablet 12/28/2020 12:00:00 AM EST eCW1 ([facility]) Sertraline 25 MG Oral Tablet 08/17/2020 12:00:00 AM EDT eCW1 ([facility]) Sertraline 100 MG Oral Tablet [Zoloft] 06/30/2020 12:00:00 AM EDT eCW1 ([facility]) Sertraline 100 MG Oral Tablet [Zoloft] 06/30/2020 12:00:00 AM EDT eCW1 ([facility]) Sertraline 100 MG Oral Tablet [Zoloft] 06/30/2020 12:00:00 AM EDT eCW1 ([facility]) Sertraline 100 MG Oral Tablet [Zoloft] 06/30/2020 12:00:00 AM EDT eCW1 ([facility]) Ciprofloxacin 500 MG Oral Tablet [Cipro] 11/24/2019 12:00:00 AM EDT eCW1 ([facility]) Ciprofloxacin 500 MG Oral Tablet [Cipro] 11/24/2019 12:00:00 AM EDT eCW1 ([facility]) Ciprofloxacin 500 MG Oral Tablet [Cipro] 11/24/2019 12:00:00 AM EDT eCW1 ([facility]) Ciprofloxacin 500 MG Oral Tablet [Cipro] 11/24/2019 12:00:00 AM EDT eCW1 ([facility])
--- NOTE | 2021-01-19 20:45 | REPVR ---
PROCEDURE INFORMATION: Exam: CT Head Without Contrast Exam date and time: 01/19/2021 7:36 PM Age: 45 years old Clinical indication: Pain; Headache; Other: Severe; Additional info: Severe headache TECHNIQUE: Imaging protocol: Computed tomography of the head without contrast. Axial and coronal reformatted images were created and reviewed. Radiation optimization: All CT scans at this facility use at least one of these dose optimization techniques: automated exposure control; mA and/or kV adjustment per patient size (includes targeted exams where dose is matched to clinical indication); or iterative reconstruction. COMPARISON: CT Head without contrast 06/05/2020 1:15 PM FINDINGS: Brain: No CT evidence of acute intracranial hemorrhage or acute territorial infarction. No significant mass effect or midline shift. Basal cisterns patent. Cerebral ventricles: Normal in size and configuration. Paranasal sinuses: Unremarkable. No fluid levels. Mastoid air cells: Grossly unremarkable. Bones/joints: No acute osseous abnormality. Soft tissues: Grossly unremarkable. IMPRESSION: No CT evidence of acute intracranial pathology. Electronically signed by: Julien Olsen On 01/19/2021 20:45:05 PM
[2021-01-19 20:55] LABS: ALBUMIN 3.3 GM/DL (3.2-5.2); ALT/SGPT 20 U/L (12-78); BILIRUBIN,DIRECT < 0.1 MG/DL (0.0-0.2); BILIRUBIN,TOTAL 0.3 MG/DL (0.2-1.0); BLOOD UREA NITROGEN 12 MG/DL (7-18); CALCIUM LEVEL 8.4 MG/DL (8.5-10.1); CARBON DIOXIDE LEVEL 25 MEQ/L (21-32); CHLORIDE LEVEL 108 MEQ/L (98-107); CREATININE FOR GFR 0.68 MG/DL (0.55-1.30); GLOMERULAR FILTRATION RATE > 60.0 (>58); GLUCOSE, FASTING 111 MG/DL (70-100); LIPASE 171 U/L (73-393); NT-PRO BNP 49 PG/ML (<125); POTASSIUM SERUM 3.6 MEQ/L (3.5-5.1); SODIUM LEVEL 141 MEQ/L (136-145); TOTAL PROTEIN 6.9 GM/DL (6.4-8.2)
[2021-01-19 21:45] VITALS: BP 103/61
--- NOTE | 2021-01-20 07:34 | ECGEPIP ---
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
== END 2021-01-19 22:12 | disposition home or self-care (01) ==
LOC: M ED 13:43
DX: R51.9 Headache, unspecified (principal); R07.9 Chest pain, unspecified; Z88.1 Allergy status to other antibiotic agents; Z88.6 Allergy status to analgesic agent; Z91.040 Latex allergy status
CPT/HCPCS: 70450; 71045; 80048; 80076; 81001; 83690; 83880; 84443; 85025; 87088; 87186; 93005; 93041; 94760; 96361; 96374; 99285; J1885

== ENCOUNTER 2021-09-11 23:18 | Emergency (ER) | payer OTHER ==
[~2021-09-11] VITALS: Ht 167.6 cm; Wt 82.7 kg
[~2021-09-11 23:18] MED LIST changes: +OMEP-173; -OMEP-218
[2021-09-11 23:20] VITALS: BP 142/74
== END 2021-09-12 02:19 | disposition left against medical advice (07) ==
LOC: M ED 23:18
DX: Z53.21 Procedure and treatment not carried out due to patient leaving prior to being seen by health care provider (principal)

== ENCOUNTER 2021-09-22 11:13 | Emergency (ER) | payer OTHER ==
[~2021-09-22] VITALS: Ht 162.6 cm; Wt 81.8 kg
[~2021-09-22 11:13] MED LIST changes: -OMEP-173; +OMEP-173 PO
[2021-09-22 11:58] LABS: BASO # 0.1 10^3/uL (0.0-0.2); BASO % 0.9 % (0.0-1.0); EOS # 0.1 10^3/uL (0.0-0.5); EOS % 1.3 % (0.0-3.0); HEMATOCRIT 36.8 % (36.0-47.0); HEMOGLOBIN 12.1 g/dl (12.0-15.5); LYMPH # 2.7 10^3/uL (1.5-5.0); LYMPH % 39.5 % (24.0-44.0); MEAN CORPUSCULAR HEMOGLOBIN 28.4 pg (27.0-33.0); MEAN CORPUSCULAR HGB CONC 32.9 g/dl (32.0-36.5); MEAN CORPUSCULAR VOLUME 86.4 fl (80.0-96.0); MONO # 0.5 10^3/uL (0.0-0.8); MONO % 7.2 % (2.0-8.0); NEUTROPHILS # 3.4 10^3/uL (1.5-8.5); NEUTROPHILS % 50.8 % (36.0-66.0); PLATELET COUNT, AUTOMATED 419 10^3/uL (150-450); RED BLOOD COUNT 4.26 10^6/uL (4.00-5.40); WHITE BLOOD COUNT 6.8 10^3/uL (4.0-10.0)
[2021-09-22] MEDS ORDERED: NS 500 ML IV ONE (12:10)
[2021-09-22 12:21] LABS: OSMOLALITY SERUM 290 MOSM/KG (275-295)
[2021-09-22 12:43] LABS: ALBUMIN 3.4 GM/DL (3.2-5.2); ALT/SGPT 29 U/L (12-78); BILIRUBIN,DIRECT < 0.1 MG/DL (0.0-0.2); BILIRUBIN,TOTAL 0.3 MG/DL (0.2-1.0); BLOOD UREA NITROGEN 6 MG/DL (7-18); CALCIUM LEVEL 9.1 MG/DL (8.5-10.1); CARBON DIOXIDE LEVEL 27 MEQ/L (21-32); CHLORIDE LEVEL 108 MEQ/L (98-107); GLOMERULAR FILTRATION RATE > 60.0 (>58); GLUCOSE, FASTING 97 MG/DL (70-100); POTASSIUM SERUM 4.5 MEQ/L (3.5-5.1); SODIUM LEVEL 138 MEQ/L (136-145); TOTAL PROTEIN 7.1 GM/DL (6.4-8.2)
[2021-09-22] MEDS ORDERED: ISOVUE-370 76% 100ML VIAL As Ordered ONE (12:49)
[2021-09-22 14:50] LABS: RSV AMPLIFICATION NEGATIVE (NEGATIVE)
[2021-09-22] MEDS ORDERED: ACET-897 PO (15:33)
[2021-09-22] MEDS ORDERED: HOME MED LIST COMPLETE! XX SCH (15:35)
[2021-09-22 18:58] VITALS: BP 154/80
== END 2021-09-22 19:00 | disposition home or self-care (01) ==
LOC: EDBD 11:13 → M ED 11:13
DX: R53.1 Weakness (principal); Z79.899 Other long term (current) drug therapy; Z88.0 Allergy status to penicillin; Z88.5 Allergy status to narcotic agent; Z91.040 Latex allergy status
CPT/HCPCS: 70450; 70496; 70498; 70544; 70551; 80047; 80048; 80076; 82140; 83930; 84443; 85025; 87631; 93005; 93041; 94760; 96360; 96361; 99285; Q9967

== ENCOUNTER → 2022-05-17 | Outpatient (CLI) | payer OTHER ==
[~2022-05-17] MED LIST changes: +ACET-897 PO; +MONT-5 PO; -SING10TA32 PO
[2022-05-17 10:54] LABS: BASO # 0.1 10^3/uL (0.0-0.2); BASO % 0.9 % (0.0-1.0); EOS # 0.1 10^3/uL (0.0-0.5); EOS % 1.9 % (0.0-3.0); HEMATOCRIT 37.9 % (36.0-47.0); HEMOGLOBIN 12.2 g/dl (12.0-15.5); LYMPH # 2.9 10^3/uL (1.5-5.0); MEAN CORPUSCULAR HEMOGLOBIN 27.2 pg (27.0-33.0); MEAN CORPUSCULAR HGB CONC 32.2 g/dl (32.0-36.5); MEAN CORPUSCULAR VOLUME 84.4 fl (80.0-96.0); MONO # 0.5 10^3/uL (0.0-0.8); MONO % 7.7 % (2.0-8.0); NEUTROPHILS # 3.4 10^3/uL (1.5-8.5); NEUTROPHILS % 48.1 % (36.0-66.0); PLATELET COUNT, AUTOMATED 428 10^3/uL (150-450); RED BLOOD COUNT 4.49 10^6/uL (4.00-5.40)
[2022-05-17 11:17] LABS: ALBUMIN 3.9 G/DL (3.2-5.2); ALKALINE PHOSPHATASE 94 U/L (46-116); ALT/SGPT 30 U/L (7.0-40); AST/SGOT 22 U/L (<34); BILIRUBIN,TOTAL 0.7 MG/DL (0.3-1.2); BLOOD UREA NITROGEN 10 MG/DL (9-23); CALCIUM LEVEL 9.5 MG/DL (8.5-10.1); CARBON DIOXIDE LEVEL 23 MMOL/L (20-31); CHLORIDE LEVEL 106 MMOL/L (98-107); CHOLESTEROL LEVEL 267 MG/DL (<200); CHOLESTEROL RISK RATIO 6.57 (<5); CREATININE FOR GFR 0.62 MG/DL (0.55-1.30); GLOMERULAR FILTRATION RATE > 60.0 (>58); GLUCOSE, FASTING 84 MG/DL (60-100); HDL CHOLESTEROL 40.6 MG/DL (>40); LDL CHOLESTEROL 198.4 MG/DL (<100); NON-HDL-C 226.4 MG/DL; POTASSIUM SERUM 4.2 MMOL/L (3.5-5.1); SODIUM LEVEL 138 MMOL/L (136-145); TOTAL PROTEIN 7.4 G/DL (5.7-8.2); TRIGLYCERIDES LEVEL 140 MG/DL (<150)
[2022-05-17 11:18] LABS: FREE T4 1.12 NG/DL (0.89-1.76); TOTAL 25(OH) VITAMIN D 25.3 NG/ML (20.0-100.0)
== END ==
LOC: M LAB 10:22
DX: E55.9 Vitamin D deficiency, unspecified (principal); Z13.6 Encounter for screening for cardiovascular disorders; E04.1 Nontoxic single thyroid nodule; E78.2 Mixed hyperlipidemia

== ENCOUNTER 2022-06-15 14:32 | Emergency (ER) | payer OTHER ==
[~2022-06-15] VITALS: Ht 154.9 cm; Wt 195.0 kg
[2022-06-15] MEDS ORDERED: ATOR1TAB21 (14:49)
[2022-06-15] MEDS ORDERED: LORA-674 (14:49)
[2022-06-15] MEDS ORDERED: LEVO50TA5 (14:49)
[2022-06-15] MEDS ORDERED: POTA-151 (14:49)
[2022-06-15] MEDS ORDERED: TRAM50TA2 PO (17:06)
[2022-06-15 17:16] VITALS: BP 145/89
== END 2022-06-15 17:54 | disposition home or self-care (01) ==
LOC: EDBD 14:32 → M ED 14:32
DX: S93.401A Sprain of unspecified ligament of right ankle, initial encounter (principal); S93.402A Sprain of unspecified ligament of left ankle, initial encounter; M77.31 Calcaneal spur, right foot; M77.32 Calcaneal spur, left foot; X58.XXXA Exposure to other specified factors, initial encounter; Y92.009 Unspecified place in unspecified non-institutional (private) residence as the place of occurrence of the external cause; K21.9 Gastro-esophageal reflux disease without esophagitis; F41.9 Anxiety disorder, unspecified; F32.9 Major depressive disorder, single episode, unspecified; Z79.899 Other long term (current) drug therapy; Z88.0 Allergy status to penicillin; Z88.5 Allergy status to narcotic agent; Z88.8 Allergy status to other drugs, medicaments and biological substances; Z91.040 Latex allergy status

== ENCOUNTER 2022-12-30 16:27 | Emergency (ER) | payer OTHER ==
[~2022-12-30] VITALS: Ht 165.1 cm; Wt 88.1 kg
[~2022-12-30 16:27] MED LIST changes: +ATOR1TAB21; +LEVO50TA5; +LORA-1041; +POTA-151
[2022-12-30] MEDS ORDERED: dexAMETHasone 20MG/5ML VIAL IV ONE (19:30)
[2022-12-30] MEDS ORDERED: KETOROLAC 30 MG/ML 1ML VIAL IV ONE (19:30)
[2022-12-30] MEDS ORDERED: NS 1,000 ML IV ONE (19:30)
[2022-12-30 20:20] LABS: BASO # 0.1 10^3/uL (0.0-0.2); BASO % 0.5 % (0.0-1.0); EOS # 0.1 10^3/uL (0.0-0.5); EOS % 1.3 % (0.0-3.0); HEMATOCRIT 36.5 % (36.0-47.0); LYMPH # 2.7 10^3/uL (1.5-5.0); LYMPH % 27.2 % (24.0-44.0); MEAN CORPUSCULAR HEMOGLOBIN 28.1 pg (27.0-33.0); MEAN CORPUSCULAR HGB CONC 32.9 g/dl (32.0-36.5); MEAN CORPUSCULAR VOLUME 85.5 fl (80.0-96.0); MONO # 0.8 10^3/uL (0.0-0.8); MONO % 7.8 % (2.0-8.0); NEUTROPHILS # 6.3 10^3/uL (1.5-8.5); NEUTROPHILS % 62.8 % (36.0-66.0); PLATELET COUNT, AUTOMATED 462 10^3/uL (150-450); RED BLOOD COUNT 4.27 10^6/uL (4.00-5.40); WHITE BLOOD COUNT 10.1 10^3/uL (4.0-10.0)
[2022-12-30 20:39] LABS: ERYTHROCYTE SEDIMENTATION RATE 39 mm/hr (0-20)
[2022-12-30] MEDS ORDERED: ISOVUE-370 76% 100ML VIAL As Ordered ONE (20:40)
[2022-12-30] MEDS ORDERED: CLINDAMYCIN 150MG CAPSULE PO ONE (22:10)
[2022-12-30] MEDS ORDERED: CLEO300C2 PO (22:11)
[2022-12-30] MEDS ORDERED: IBUP-1022 PO (22:11)
[2022-12-30 22:32] VITALS: BP 138/65; TEMP 97.9; O2SAT 98
== END 2022-12-30 22:34 | disposition home or self-care (01) ==
LOC: M ED 16:27
DX: K04.7 Periapical abscess without sinus (principal); J01.90 Acute sinusitis, unspecified; K21.9 Gastro-esophageal reflux disease without esophagitis; E78.5 Hyperlipidemia, unspecified; Z86.79 Personal history of other diseases of the circulatory system; Z88.1 Allergy status to other antibiotic agents; Z88.5 Allergy status to narcotic agent; Z91.040 Latex allergy status; Z79.02 Long term (current) use of antithrombotics/antiplatelets; Z79.83 Long term (current) use of bisphosphonates; Z79.899 Other long term (current) drug therapy
CPT/HCPCS: 70487; 80047; 84702; 85025; 85652; 86140; 96361; 96374; 99283; J1100; J1885; Q9967

== ENCOUNTER → 2023-01-22 | Outpatient (REF) | payer OTHER | LOC: M LAB REF 12:04 | PROVIDERS: ATTEND Physician Assistant Medical | DX: B34.9 Viral infection, unspecified (principal) ==

== ENCOUNTER → 2023-02-11 | Outpatient (REF) | LOC: M EMP 09:55 | PROVIDERS: ATTEND Family Medicine | DX: Z20.822 Contact with and (suspected) exposure to COVID-19 (principal) ==

== ENCOUNTER → 2023-05-07 | Outpatient (CLI) | payer OTHER ==
[2023-05-07 11:23] LABS: BASO # 0.1 10^3/uL (0.0-0.2); BASO % 0.9 % (0.0-1.0); EOS # 0.1 10^3/uL (0.0-0.5); EOS % 1.6 % (0.0-3.0); HEMATOCRIT 35.3 % (36.0-47.0); HEMOGLOBIN 11.5 g/dl (12.0-15.5); LYMPH # 3.3 10^3/uL (1.5-5.0); MEAN CORPUSCULAR HEMOGLOBIN 27.3 pg (27.0-33.0); MEAN CORPUSCULAR HGB CONC 32.6 g/dl (32.0-36.5); MEAN CORPUSCULAR VOLUME 83.6 fl (80.0-96.0); MONO # 0.7 10^3/uL (0.0-0.8); MONO % 8.5 % (2.0-8.0); NEUTROPHILS # 3.9 10^3/uL (1.5-8.5); NEUTROPHILS % 47.6 % (36.0-66.0); PLATELET COUNT, AUTOMATED 462 10^3/uL (150-450); RED BLOOD COUNT 4.22 10^6/uL (4.00-5.40); WHITE BLOOD COUNT 8.1 10^3/uL (4.0-10.0)
[2023-05-07 11:48] LABS: ALBUMIN 3.6 G/DL (3.2-5.2); ALKALINE PHOSPHATASE 93 U/L (46-116); ALT/SGPT 19 U/L (7.0-40); AST/SGOT 18 U/L (<34); BILIRUBIN,TOTAL 0.4 MG/DL (0.3-1.2); BLOOD UREA NITROGEN 15 MG/DL (9-23); CALCIUM LEVEL 8.8 MG/DL (8.5-10.1); CARBON DIOXIDE LEVEL 23 MMOL/L (20-31); CHLORIDE LEVEL 110 MMOL/L (98-107); CHOLESTEROL LEVEL 137 MG/DL (<200); CHOLESTEROL RISK RATIO 4.69 (<5); GLOMERULAR FILTRATION RATE > 60.0 (>58); GLUCOSE, FASTING 89 MG/DL (60-100); HDL CHOLESTEROL 29.2 MG/DL (>40); LDL CHOLESTEROL 75.6 MG/DL (<100); NON-HDL-C 107.8 MG/DL; POTASSIUM SERUM 4.4 MMOL/L (3.5-5.1); SODIUM LEVEL 138 MMOL/L (136-145); TOTAL PROTEIN 6.6 G/DL (5.7-8.2); TRIGLYCERIDES LEVEL 161 MG/DL (<150)
[2023-05-07 11:51] LABS: FREE T4 1.02 NG/DL (0.89-1.76)
[2023-05-07 11:52] LABS: THYROID STIMULATING HORMONE 3.635 uIU/ML (0.55-4.78); TOTAL 25(OH) VITAMIN D 34.5 NG/ML (20.0-100.0)
== END ==
LOC: M LAB 10:02
PROVIDERS: ATTEND Physician Assistant Medical
DX: E04.1 Nontoxic single thyroid nodule (principal); E78.2 Mixed hyperlipidemia; E55.9 Vitamin D deficiency, unspecified; Z13.6 Encounter for screening for cardiovascular disorders

== ENCOUNTER → 2023-08-27 | Outpatient (REF) | LOC: M EMP 11:58 | PROVIDERS: ATTEND Family Medicine | DX: Z11.52 Encounter for screening for COVID-19 (principal) ==

== ENCOUNTER 2023-09-11 01:16 | Emergency (ER) | payer OTHER ==
[~2023-09-11] VITALS: Ht 165.1 cm; Wt 87.4 kg
[2023-09-11 01:16] VITALS: BP 178/77; TEMP 97.8; O2SAT 98
== END 2023-09-11 03:41 | disposition left against medical advice (07) ==
LOC: M ED 01:16
DX: Z53.21 Procedure and treatment not carried out due to patient leaving prior to being seen by health care provider (principal)

== ENCOUNTER → 2023-09-24 | Outpatient (REF) | LOC: M EMP 10:19 | PROVIDERS: ATTEND Family Medicine | DX: Z11.52 Encounter for screening for COVID-19 (principal) ==

== ENCOUNTER 2023-12-12 18:21 | Emergency (ER) | payer OTHER ==
[~2023-12-12 18:21] MED LIST changes: -PRED20TA PO
[2023-12-12 18:26] VITALS: TEMP 98.8
[2023-12-12 19:17] LABS: BASO # 0.1 10^3/uL (0.0-0.2); BASO % 0.8 % (0.0-1.0); EOS # 0.1 10^3/uL (0.0-0.5); EOS % 1.1 % (0.0-3.0); HEMATOCRIT 34.1 % (36.0-47.0); HEMOGLOBIN 11.3 g/dl (12.0-15.5); LYMPH # 2.8 10^3/uL (1.5-5.0); LYMPH % 30.7 % (24.0-44.0); MEAN CORPUSCULAR HEMOGLOBIN 28.5 pg (27.0-33.0); MEAN CORPUSCULAR HGB CONC 33.1 g/dl (32.0-36.5); MEAN CORPUSCULAR VOLUME 85.9 fl (80.0-96.0); MONO # 0.6 10^3/uL (0.0-0.8); MONO % 6.6 % (2.0-8.0); NEUTROPHILS # 5.6 10^3/uL (1.5-8.5); NEUTROPHILS % 60.5 % (36.0-66.0); PLATELET COUNT, AUTOMATED 427 10^3/uL (150-450); RED BLOOD COUNT 3.97 10^6/uL (4.00-5.40); WHITE BLOOD COUNT 9.2 10^3/uL (4.0-10.0)
[2023-12-12 19:53] LABS: BLOOD UREA NITROGEN 8 MG/DL (9-23); CALCIUM LEVEL 9.1 MG/DL (8.5-10.1); CARBON DIOXIDE LEVEL 24 MMOL/L (20-31); CHLORIDE LEVEL 110 MMOL/L (98-107); CK-MB VALUE MASS < 1.0 NG/ML (<3.6); CPK CREATINE PHOSPHOKINASE 130 U/L (34-145); CREATININE FOR GFR 0.61 MG/DL (0.55-1.30); GLOMERULAR FILTRATION RATE > 60.0 (>58); GLUCOSE, FASTING 91 MG/DL (60-100); MB/CK RELATIVE INDEX 0.76 (< OR =4); POTASSIUM SERUM 4.3 MMOL/L (3.5-5.1); SODIUM LEVEL 140 MMOL/L (136-145)
[2023-12-12] MEDS ORDERED: ISOVUE-370 76% 100ML VIAL As Ordered ONE (20:07)
[2023-12-12 20:29] VITALS: BP 143/64
[2023-12-12] MEDS: NITROGLYCERIN 0.4MG SUBL TABLET SL STA (20:29)
[2023-12-12] MEDS: MORPHINE 2 MG/ML 1ML VIAL IV PRN (20:40)
[2023-12-12 21:12] LABS: CK-MB VALUE MASS < 1.0 NG/ML (<3.6)
[2023-12-12 21:28] LABS: CPK CREATINE PHOSPHOKINASE 99 U/L (34-145); MB/CK RELATIVE INDEX 1.01 (< OR =4)
[2023-12-12] MEDS: KETOROLAC 30 MG/ML 1ML VIAL IV ONE (22:52)
[2023-12-12] MEDS ORDERED: IBUP-1022 PO (23:24)
[2023-12-12] MEDS ORDERED: PRED20TA PO (23:24)
[2023-12-12 23:30] VITALS: BP 122/66; O2SAT 98
[2023-12-12] MEDS: predniSONE 20 MG TAB PO ONE (23:35)
== END 2023-12-12 23:52 | disposition home or self-care (01) ==
LOC: M ED 18:21
DX: R09.1 Pleurisy (principal); K65.9 Peritonitis, unspecified; F32.A Depression, unspecified; E03.9 Hypothyroidism, unspecified; K21.9 Gastro-esophageal reflux disease without esophagitis; E78.5 Hyperlipidemia, unspecified; Z88.1 Allergy status to other antibiotic agents; Z88.5 Allergy status to narcotic agent; Z91.040 Latex allergy status; Z79.02 Long term (current) use of antithrombotics/antiplatelets; Z79.52 Long term (current) use of systemic steroids; Z79.899 Other long term (current) drug therapy
CPT/HCPCS: 71045; 71275; 74176; 80048; 82550; 82553; 84484; 85025; 87486; 87581; 87633; 87798; 93005; 93041; 94760; 96374; 96375; 99285; J1885; J7512; Q9967

== ENCOUNTER → 2023-12-12 | Outpatient (REF) ==
[~2023-12-12] MED LIST changes: +PRED20TA PO
== END ==
LOC: M EMP 11:14
PROVIDERS: ATTEND Family Medicine
DX: Z11.52 Encounter for screening for COVID-19 (principal)

== ENCOUNTER → 2024-03-29 | Outpatient (REF) | payer OTHER ==
[~2024-03-29] MED LIST changes: -CYCL5TAB PO; +CYCL5TAB4 PO; +PRED20TA PO
== END ==
LOC: M LAB REF 21:05
PROVIDERS: ATTEND Physician Assistant Medical
DX: B34.9 Viral infection, unspecified (principal)

== ENCOUNTER → 2024-04-19 | Outpatient (REF) | payer OTHER ==
[2024-04-19 16:09] LABS: AMORPHOUS SEDIMENT SMALL (NEGATIVE); APPEARANCE, URINE HAZY (CLEAR); BACTERIA, URINE AUTO NEGATIVE (NEGATIVE); BILIRUBIN, URINE AUTO NEGATIVE (NEGATIVE); BLOOD, URINE BLOOD 1+ (NEGATIVE); COLOR, URINE STRAW (YELLOW); GLUCOSE, URINE (UA) AUTO NEGATIVE (NEGATIVE); KETONE, URINE AUTO NEGATIVE (NEGATIVE); LEUKOCYTE ESTERASE, URINE AUTO 2+ (NEGATIVE); MUCUS, URINE SMALL (NEGATIVE); NITRITE, URINE AUTO NEGATIVE (NEGATIVE); PROTEIN, URINE AUTO NEGATIVE (NEGATIVE); RBC, URINE AUTO 6 /HPF (0-3); SPECIFIC GRAVITY URINE AUTO 1.008 (1.002-1.035); SQUAMOUS EPITHELIAL CELL UR AU 3 /HPF (0-6); UROBILINOGEN, URINE AUTO 0.2 mg/dL (0.0-2.0); WBC, URINE AUTO 1 /HPF (0-3)
[2024-04-19 17:04] LABS: Trichomonas vaginalis (AMP) NOT DETECTED (NEGATIVE)
[2024-04-19 17:29] LABS: GC DNA AMPLIFICATION NEGATIVE (NEGATIVE)
== END ==
LOC: M LAB REF 15:23
PROVIDERS: ATTEND Physician Assistant Medical
DX: N39.0 Urinary tract infection, site not specified (principal); Z11.3 Encounter for screening for infections with a predominantly sexual mode of transmission

== ENCOUNTER 2024-10-09 15:31 | Emergency (ER) | payer MEDICAID, OTHER, SELFPAY ==
[~2024-10-09] VITALS: Ht 165.1 cm; Wt 74.8 kg
[~2024-10-09 15:31] MED LIST changes: +ERGO125013 PO; -IBUP-1022 PO; +IBUP600T42 PO; -VITA500045 PO
[2024-10-09 16:50] LABS: BASO # 0.0 10^3/uL (0.0-0.2); BASO % 0.5 % (0.0-1.0); EOS # 0.0 10^3/uL (0.0-0.5); EOS % 0.3 % (0.0-3.0); LYMPH # 3.0 10^3/uL (1.5-5.0); LYMPH % 37.4 % (24.0-44.0); MONO # 0.7 10^3/uL (0.0-0.8); MONO % 8.1 % (2.0-8.0); NEUTROPHILS # 4.3 10^3/uL (1.5-8.5); NEUTROPHILS % 53.6 % (36.0-66.0); PLATELET COUNT, AUTOMATED 400 10^3/uL (150-450)
[2024-10-09 17:30] LABS: ALT/SGPT 18 U/L (7.0-40); AST/SGOT 21 U/L (<34); CALCIUM LEVEL 9.3 MG/DL (8.5-10.1); CARBON DIOXIDE LEVEL 29 MMOL/L (20-31); CHLORIDE LEVEL 107 MMOL/L (98-107); CREATININE FOR GFR 0.67 MG/DL (0.55-1.30); GLOMERULAR FILTRATION RATE > 90.0 (>58); POTASSIUM SERUM 4.0 MMOL/L (3.5-5.1); SODIUM LEVEL 146 MMOL/L (136-145)
[2024-10-09] MEDS: ONDANSETRON 4MG TAB PO ONE (17:45)
[2024-10-09 18:52] LABS: FREE T4 1.06 NG/DL (0.89-1.76)
[2024-10-09] MEDS: NS (Normal Saline) 0.9% 1,000 ML IV ONE (18:54)
[2024-10-09 20:13] LABS: ETHYL ALCOHOL (ETHANOL) 0.004 % (0.000-0.010)
[2024-10-09] MEDS: ONDANSETRON 4MG 2ML VIAL IV ONE (22:50)
[2024-10-09] MEDS ORDERED: ONDA-282 PO (23:16)
[2024-10-09 23:20] VITALS: BP 135/63; TEMP 97.5; O2SAT 100
== END 2024-10-09 23:34 | disposition home or self-care (01) ==
LOC: M ED 15:31
DX: R11.2 Nausea with vomiting, unspecified (principal); K80.20 Calculus of gallbladder without cholecystitis without obstruction; Z91.51 Personal history of suicidal behavior; F32.A Depression, unspecified; Z87.440 Personal history of urinary (tract) infections; Z86.73 Personal history of transient ischemic attack (TIA), and cerebral infarction without residual deficits; K21.9 Gastro-esophageal reflux disease without esophagitis; Z87.01 Personal history of pneumonia (recurrent); I25.2 Old myocardial infarction; Z79.899 Other long term (current) drug therapy; Z88.0 Allergy status to penicillin; Z88.5 Allergy status to narcotic agent; Z88.8 Allergy status to other drugs, medicaments and biological substances; Z91.040 Latex allergy status
CPT/HCPCS: 74176; 76705; 80048; 80076; 82077; 83690; 84439; 84443; 85025; 96374; 96375; 99284; J2405; J2765

== ENCOUNTER → 2024-11-11 | Outpatient (REF) | payer BC ==
[~2024-11-11] MED LIST changes: +ONDA-282 PO
[2024-11-14 08:57] LABS: HPV APTIMA Not Detected (Not Detected)
== END ==
LOC: M PLALAB 12:09
PROVIDERS: ATTEND Student in an Organized Health Care Education/Training Program
DX: Z12.4 Encounter for screening for malignant neoplasm of cervix (principal)
CPT/HCPCS: 87624; G0123

== ENCOUNTER → 2024-11-24 | Outpatient (CLI) | payer OTHER ==
[2024-11-24 16:24] LABS: HIV 1&2 SCREEN NEGATIVE (NEGATIVE)
[2024-11-24 16:33] LABS: HEPATITIS C VIRUS ABY INDEX 0.02 INDEX (<0.8)
== END ==
LOC: M PLALAB 11:43
PROVIDERS: ATTEND Student in an Organized Health Care Education/Training Program
DX: Z01.411 Encounter for gynecological examination (general) (routine) with abnormal findings (principal)

== ENCOUNTER → 2024-11-24 | Outpatient (CLI) | payer OTHER | LOC: M WHC 08:46 | PROVIDERS: ATTEND Student in an Organized Health Care Education/Training Program | DX: N63.10 Unspecified lump in the right breast, unspecified quadrant (principal); N63.20 Unspecified lump in the left breast, unspecified quadrant; R92.333 Mammographic heterogeneous density, bilateral breasts; N60.11 Diffuse cystic mastopathy of right breast ==

== ENCOUNTER → 2024-12-11 | Outpatient (REF) | payer OTHER ==
[2024-12-11 19:35] LABS: APPEARANCE, URINE CLEAR (CLEAR); BACTERIA, URINE AUTO 1+ (NEGATIVE); BILIRUBIN, URINE AUTO NEGATIVE (NEGATIVE); BLOOD, URINE BLOOD NEGATIVE (NEGATIVE); GLUCOSE, URINE (UA) AUTO NEGATIVE (NEGATIVE); KETONE, URINE AUTO NEGATIVE (NEGATIVE); LEUKOCYTE ESTERASE, URINE AUTO NEGATIVE (NEGATIVE); NITRITE, URINE AUTO NEGATIVE (NEGATIVE); PROTEIN, URINE AUTO NEGATIVE (NEGATIVE); RBC, URINE AUTO 1 /HPF (0-3); SPECIFIC GRAVITY URINE AUTO 1.005 (1.002-1.035); SQUAMOUS EPITHELIAL CELL UR AU 3 /HPF (0-6); UROBILINOGEN, URINE AUTO 0.2 mg/dL (0.0-2.0); WBC, URINE AUTO 1 /HPF (0-3)
== END ==
LOC: M LAB REF 19:07
DX: N39.0 Urinary tract infection, site not specified (principal)

== ENCOUNTER 2025-01-13 12:59 | Inpatient (IN) | payer OTHER ==
[~2025-01-13] VITALS: Ht 165.1 cm; Wt 78.0 kg
[2025-01-13] MEDS ORDERED: HYDR-643 PO (13:22)
[2025-01-13] MEDS ORDERED: HOME MED LIST COMPLETE! XX SCH (13:45)
[2025-01-13 14:18] LABS: PLATELET COUNT, AUTOMATED 487 10^3/uL (150-450)
[2025-01-13 14:40] LABS: AMPHETAMINES LEVEL URINE NEGATIVE (NEGATIVE); BARBITURATES URINE NEGATIVE (NEGATIVE); BENZODIAZEPINES URINE NEGATIVE (NEGATIVE); CANNABINOIDS URINE NEGATIVE (NEGATIVE); COCAINE METABOLITE URINE NEGATIVE (NEGATIVE); METHADONE URINE NEGATIVE (NEGATIVE); OPIATES URINE NEGATIVE (NEGATIVE); PHENCYCLIDINE URINE NEGATIVE (NEGATIVE)
[2025-01-13 14:44] LABS: ETHYL ALCOHOL (ETHANOL) 0.006 % (0.000-0.010)
[2025-01-13 14:45] LABS: SALICYLATE LEVEL < 3.0 MG/DL (<30)
[2025-01-13 14:46] LABS: ALT/SGPT 16 U/L (7.0-40); AST/SGOT 16 U/L (<34); CALCIUM LEVEL 9.5 MG/DL (8.5-10.1); CARBON DIOXIDE LEVEL 22 MMOL/L (20-31); CHLORIDE LEVEL 107 MMOL/L (98-107); CREATININE FOR GFR 0.65 MG/DL (0.55-1.30); GLOMERULAR FILTRATION RATE > 90.0 (>58); POTASSIUM SERUM 3.9 MMOL/L (3.5-5.1); SODIUM LEVEL 142 MMOL/L (136-145)
[2025-01-13] MEDS ORDERED: LORazepam 1 MG TAB PO PRN (15:45)
[2025-01-13] MEDS ORDERED: HALOPERIDOL 5 MG TAB PO PRN (15:45)
[2025-01-13] MEDS ORDERED: traZODone 50 MG TAB PO PRN (15:45)
[2025-01-13] MEDS ORDERED: MOM 30 ML SUSPENSION UDC PO PRN (15:45)
[2025-01-13] MEDS ORDERED: OLANZapine 5 MG TAB PO PRN (15:45)
[2025-01-13] MEDS ORDERED: MAALOX 30 ML SUSP *UDC PO PRN (15:45)
[2025-01-13 18:01] VITALS: BP 158/78; TEMP 98.3; O2SAT 100
[2025-01-13] MEDS: ACETAMINOPHEN 325 MG TAB PO PRN (18:42)
[2025-01-14 06:40] VITALS: BP 106/65; TEMP 98; O2SAT 98
[2025-01-14] MEDS: NICOTINE 14 MG/24 HR TRANSDERMAL TD SCH (09:00)
[2025-01-14] MEDS: busPIRone 5 MG TAB PO SCH (10:08)
[2025-01-14] MEDS: ESCITALOPRAM OXALATE 10 MG TABLET PO SCH (10:08)
[2025-01-14] MEDS ORDERED: GLUCAGON INJ 1 MG VIAL SC PRN (15:25)
[2025-01-14] MEDS ORDERED: GLUCOSE 4 GM CHEW PO PRN (15:25)
[2025-01-14] MEDS ORDERED: DEXTROSE 50% 50 ML SYRINGE IV PRN (15:25)
[2025-01-14 16:04] VITALS: BP 143/84; TEMP 97.9; O2SAT 99
[2025-01-14 16:31] LABS: FREE T4 1.19 NG/DL (0.89-1.76)
[2025-01-14] MEDS: DICLOFENAC EPOLAMINE 1.3% PATCH TOP SCH (20:47)
[2025-01-15] MEDS ORDERED: LEVOTHYROXINE 50 MCG TABLET (0.05 MG) PO SCH (06:00)
[2025-01-15 06:28] VITALS: BP 146/67; TEMP 98; O2SAT 97
[2025-01-15] MEDS: FLUZONE VACCINE TRI PF(25-26) 0.5ML SYRINGE IM.IMMUN ONE (08:11)
[2025-01-15 15:16] VITALS: BP 136/72; TEMP 98.7; O2SAT 99
[2025-01-15] MEDS: IBUPROFEN 400 MG TAB PO PRN (22:48)
[2025-01-16 06:29] VITALS: BP 120/68; TEMP 98.4; O2SAT 99
[2025-01-16 15:22] VITALS: BP 131/74; TEMP 98.5; O2SAT 99
[2025-01-17 06:17] VITALS: BP 121/68; TEMP 98.5; O2SAT 98
[2025-01-17] MEDS ORDERED: LEXA1TAB PO (10:19)
[2025-01-17] MEDS ORDERED: BUSP5TA PO (10:19)
== END 2025-01-17 13:41 | disposition home or self-care (01) | DRG 751 ==
LOC: M ED 12:59 → EDBD 12:59 → M ED INP 15:41 → M PSY 16:51
PROVIDERS: ADMIT Internal Medicine; ATTEND Internal Medicine
DX: F33.1 Major depressive disorder, recurrent, moderate (principal); F41.9 Anxiety disorder, unspecified; Z63.0 Problems in relationship with spouse or partner; Z86.73 Personal history of transient ischemic attack (TIA), and cerebral infarction without residual deficits; I25.2 Old myocardial infarction; R45.851 Suicidal ideations; Z91.51 Personal history of suicidal behavior; F43.10 Post-traumatic stress disorder, unspecified; M72.2 Plantar fascial fibromatosis; Z62.810 Personal history of physical and sexual abuse in childhood; Z56.0 Unemployment, unspecified; Z81.8 Family history of other mental and behavioral disorders; Z79.899 Other long term (current) drug therapy; Z88.0 Allergy status to penicillin; Z88.5 Allergy status to narcotic agent; Z91.040 Latex allergy status

== ENCOUNTER → 2025-01-26 | Outpatient (REF) | payer OTHER ==
[~2025-01-26] MED LIST changes: +BUSP5TA PO; +HYDR-643 PO
[2025-01-26 13:54] LABS: FREE T4 1.24 NG/DL (0.89-1.76)
[2025-01-26 13:55] LABS: ALT/SGPT 14 U/L (7.0-40); AST/SGOT 16 U/L (<34); CALCIUM LEVEL 9.0 MG/DL (8.5-10.1); CARBON DIOXIDE LEVEL 27 MMOL/L (20-31); CHLORIDE LEVEL 106 MMOL/L (98-107); CHOLESTEROL LEVEL 149 MG/DL (<200); CHOLESTEROL RISK RATIO 4.16 (<5); CREATININE FOR GFR 0.75 MG/DL (0.55-1.30); GLOMERULAR FILTRATION RATE > 90.0 (>58); LDL CHOLESTEROL 95.0 MG/DL (<100); NON-HDL-C 113.2 MG/DL; POTASSIUM SERUM 3.4 MMOL/L (3.5-5.1); SODIUM LEVEL 143 MMOL/L (136-145); TRIGLYCERIDES LEVEL 91 MG/DL (<150)
[2025-01-26 14:50] LABS: TOTAL 25(OH) VITAMIN D 38.7 NG/ML (20.0-100.0)
[2025-01-26 14:51] LABS: THYROID PEROXIDASE ANTIBODY 386 U/ML (<60.0)
[2025-01-26 14:52] LABS: ESTIMATED AVERAGE GLUCOSE 97.0 MG/DL (60-110); HEPATITIS C VIRUS ABY INDEX < 0.02 INDEX (<0.8); HIV 1&2 SCREEN NEGATIVE (NEGATIVE); THYROGLOBULIN ANTIBODY > 500.0 U/ML (<60.0)
== END ==
LOC: M LAB REF 12:26
PROVIDERS: ATTEND Physician Assistant
DX: E87.6 Hypokalemia (principal); Z11.9 Encounter for screening for infectious and parasitic diseases, unspecified; E55.9 Vitamin D deficiency, unspecified; I25.10 Atherosclerotic heart disease of native coronary artery without angina pectoris; E03.9 Hypothyroidism, unspecified; E66.9 Obesity, unspecified

== ENCOUNTER → 2025-02-04 | Outpatient (CLI) | payer OTHER | LOC: M EKG 14:48 | PROVIDERS: ATTEND Physician Assistant | DX: E87.6 Hypokalemia (principal) ==